=== PATIENT | female | born 1955 ===

== ENCOUNTER → 2020-01-28 08:52 | Outpatient (BNVA) | payer SELFPAY | PROVIDERS: Visit Provider Internal Medicine ==

== ENCOUNTER → 2021-01-23 09:53 | Outpatient (BNVA) | payer SELFPAY | PROVIDERS: Visit Provider Internal Medicine | DX: Z02.79 Encounter for issue of other medical certificate (principal) ==

== ENCOUNTER 2023-09-05 08:16 | Outpatient (AMB) | payer MEDICARE, OTHER, SELFPAY ==
--- NOTE | 2023-09-05 08:23 | A.OFFPC_ITS ---
Vital Signs 09/05/23 08:37 09/05/23 08:42 Height 5 ft 9.09 in Weight 175 lb 6 oz BMI 25.8 BP 144/70 H 142/64 H Blood Pressure Location Lt brachial Lt brachial Position Sitting Sitting Respiration 16 Pulse 67 Pulse Source Pulse Oximeter Temp 98.2 F Temp Source Oral Pulse Oximetry (%) 97 Oxygen Delivery Method Room Air Intake Visit Reasons: fab[facility] from [facility]/ breast pain Intake Note: New patient visit. Stomach discomfort Dermatology Nurse Practitioner Required: No Allergies atorvastatin Allergy (Unknown, Verified 09/05/23 08:26) Muscle cramps baclofen Allergy (Unknown, Verified 09/05/23 08:26) drowsiness polyethylene glycol 3350 Allergy (Unknown, Verified 09/05/23 08:26) Vomiting Fall risk assessment: No Falls in past year Last assessed Fall Risk: 09/05/23 Dental Screening Dental Screen Date: 09/05/23 Did you have a dental visit in the last 12 months?: No Did you have a dental problem in the last 6 months where you did not have access to dental care?: No Was dental information given to patient?: Patient declined HPI HPI Comments History of Present Illness Details This is a 68-year-old female with a past medical history of coronary artery disease, peripheral arterial disease, hyperlipidemia, hypertension and type 2 diabetes presenting to transfer care from [facility] primary care. She scheduled this visit to evaluate a pain on her right side. The pain began 2-3 days ago. She says it is a 4/5 out of 10, and it is fairly constant. She denies aggravating or alleviating factors. She says it is just below the right breast on the ribs. She says it feels sore and sensitive. She does not recall injuring the area. There is no visible rash or redness. She has not been sick recently, and she denies cough, chest pain, shortness of breath. Denies abdominal pain, nausea, vomiting. She has not attempted treatment for the pain. Cardiovascular-she saw her supply technician last week. They commented on her blood pressure being mildly elevated in the office. They instructed her to monitor it once a week at home. Her home readings are in the 120s over 70s. Compliant with medications. Denies chest pain or shortness of breath. Followed at [facility] vascular. She has intermittent claudication in the right lower extremity. She is on Xarelto. Endocrine- Dr. Christie for hyperparathyroidism and diabetes. She checks her glucose readings at home. She has an eye exam yearly with Dr. Angel. Denies hypoglycemia. She was seen by gabrielle last week and started on insulin. Her glucose yesterday was 142, 241 posprandial, and this morning it was 210. Right now it is 233. She has chronic knee and back pain treated with physical therapy. She has taken Zanaflex muscle relaxant as needed in the past. She is seen Podiatry for a right heel spur for which she received cortisone injections. She uses lorazepam 0.5 mg daily as needed for anxiety. Her last refill was 06/20/2023. She needs a refill. She had an abnormal mammogram on September 07 last year. There were suspected benign calcifications. Patient reports having the mammogram repeated in February with no suspicious findings, and she was instructed to repeat it in a year. [facility] Medical History (Updated 09/05/23 @ 09:40 by JAZ Krishna) Hypercalcemia Hyperparathyroidism Type 2 diabetes mellitus with vascular disease Subclinical hyperthyroidism Sciatica Pneumothorax, left Essential hypertension Hyperlipidemia Hyperkalemia Lumbar degenerative disc disease Female cystocele Colon adenomas B12 deficiency Coronary artery stenosis CAD (coronary artery disease) Atherosclerotic PVD with intermittent claudication Anxiety Surgical History (Updated 09/05/23 @ 09:19 by JAZ Krishna) History of right-sided carotid endarterectomy History of back surgery S/P CABG x 3 Family History (Updated 09/05/23 @ 08:41 by Eliza Shultz CMA) Mother Hyperlipidemia HTN (hypertension) Sister Stroke Brother Chondrosarcoma Prostate cancer Social History (Updated 09/05/23 @ 08:41 by Eliza Shultz CMA) Housing: House Patient Tobacco Use Status: Former Tobacco user Cigarette Packs Per Day: 1 Years Smoked: 15 e-Cigarette/Vaping Use: Never Used Second Hand Smoke Exposure: No service: No Current occupational status: retired Cognitive needs: No Hearing needs: No Vision needs: Yes (glasses) Questionnaire AUDIT C Alcohol Use Questionnaire (AUDIT-C) 1. How often do you have a drink containing alcohol?: Never 3. How often do you have six or more drinks on one occasion?: Never Total Score: 0 Review of Systems Const Details: Constitutional: No fever, chills or fatigue Respiratory: No shortness of breath, cough or sputum production. Cardiovascular: No chest pain, chest pressure or chest discomfort. Gastrointestinal: No anorexia, nausea, vomiting or diarrhea. No abdominal pain Neurologic: No headache, dizziness, syncope Skin: No rash or itching. Physical exam (Primary Care) Vital Signs: Last Vital Signs Temp 98.2 F 09/05/23 08:37 Pulse 67 09/05/23 08:37 Resp 16 09/05/23 08:37 BP 142/64 H 09/05/23 08:42 Pulse Ox 97 09/05/23 08:37 Oxygen Delivery Method Room Air 09/05/23 08:37 BMI result Body Mass Index 25.8 Tobacco/Smoking Status: Tobacco use Status Patient Tobacco Use Status Former Tobacco user 09/05/23 08:41 e-Cigarette/Vaping Use Never Used 09/05/23 08:41 Const Other: Constitutional: Alert, in no distress. Head: Normocephalic. Respiratory: Clear to auscultation. Cardiovascular: S1 S2 regular. No murmurs. Chest: Minimal tenderness of the anterior right lower ribs below the breast. Gastrointestinal: Abdomen soft, non-tender, non-distended. Normal bowel sounds. No palpable masses. Genitourinary: No costovertebral angle tenderness. Neurologic: No focal neurological deficits. Skin: No rashes or lesions. Assessment and Plan Assessment & Plan (1) Rib pain on right side: Code(s): R07.81 - Pleurodynia Plan: Patient appears well. Vitals stable. Exam is reassuring. Pain may be due to musculoskeletal strain however we discussed that shingles can commonly affected area so if she develops rash or redness she will contact the office. Recommended Tylenol and alternating with heat and ice. We will obtain x-ray of the ribs to make sure there is no bony lesion. She was instructed to follow up if pain does not resolve in 2 weeks or sooner if she has worsening symptoms. (2) Essential hypertension: Comment: Continue current medications. Home readings within normal. Instructed to bring log to appointments. Recommended low-sodium diet and avoidance of caffeine. Code(s): I10 - Essential (primary) hypertension (3) Anxiety: Comment: Stable. Continue lorazepam as needed. Instructed not to drive or operate heavy machinery with this medication. Mass pat reviewed. Code(s): F41.9 - Anxiety disorder, unspecified Orders: Orders XR ribs RT 2V Today R07.81 - Pleurodynia Medications: New lorazepam 0.5 mg PO DAILY PRN 30 tabs 0RF anxiety Coding Level of Care Code New Pt Level 4 (19265) Complex EM visit Add On G2211 Diagnoses Rib pain on right side R07.81 Essential hypertension I10 Anxiety F41.9
[2023-09-05 08:37] VITALS: BP 144/70; PULSE 67; RESP 16; TEMP 36.8; O2SAT 97; BMI 25.8
[2023-09-05 08:42] VITALS: BP 142/64
== END 2023-09-05 09:18 | disposition home or self-care (01) ==
PROVIDERS: PCP Physician Assistant Medical; Visit Provider Physician Assistant Medical
DX: R07.81 Pleurodynia (principal); I10 Essential (primary) hypertension; F41.9 Anxiety disorder, unspecified
CPT/HCPCS: 99204; 99214; G2211

== ENCOUNTER 2023-09-05 09:54 | Outpatient (REF) | payer MEDICARE, OTHER, SELFPAY ==
--- NOTE | ~2023-09-05 | XR_ITS ---
EXAMINATION: XR RIBS, RIGHT CLINICAL INFORMATION: Pleurodynia COMPARISON: None available. TECHNIQUE: Single view chest and 3 views of the right ribs were obtained. FINDINGS: Patient status post median sternotomy and CABG. Lungs are clear. No consolidation, pneumothorax, or pleural effusion. The cardiomediastinal silhouette and pulmonary vasculature are normal. Osseous structures are unremarkable. Ribs are intact. No fractures are identified. XR/XR ribs RT min 3V w CXR1V IMPRESSION: No acute intrathoracic disease. No rib fractures.
== END 2023-09-05 09:55 | disposition home or self-care (01) ==
LOC: HO.HMGCX 09:54
PROVIDERS: PCP Physician Assistant Medical; Visit Provider Physician Assistant Medical
DX: R07.81 Pleurodynia (principal)
CPT/HCPCS: 71101

== ENCOUNTER 2023-10-03 09:43 | Outpatient (AMB) | payer MEDICARE, OTHER, SELFPAY ==
--- NOTE | 2023-10-03 09:45 | MHC.PC.OV ---
Vital Signs 10/03/23 09:56 Height 5 ft 9.09 in Weight 176 lb 6 oz BMI 26.0 BP 122/60 Blood Pressure Location Lt brachial Position Sitting Pulse 71 Pulse Source Pulse Oximeter Pulse Oximetry (%) 96 Oxygen Delivery Method Room Air Intake Visit Reasons: [facility] wing 09/28 Ride side pain Intake Note: Emergency room follow up . ER called pt and stated she has a UTI but hasn't not treated her yet for it. 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 The patient went to the emergency department on 09/30/2023 at [facility] for evaluation of 710 right upper quadrant pain. She endorsed a three-week history of right-sided abdominal pain. Pain is on a daily basis but intermittent. They last up to an hour and come and go in waves. She had had a rib x-ray completed which was normal after she saw me at her last appt. She had a CT of the abdomen and pelvis with IV contrast at the ER which showed mild wall thickening within the stomach and several left mid abdominal jejunal and ileal small bowel loops. Gastroenteritis could not be ruled out per radiology report, but she has no fevers, chills, diarrhea, nausea or vomiting. Lipase, LFTs within normal limits. No leukocytosis or anemia. She was contacted by the ER yesterday because her urine culture grew group B strep, [id number] colony-forming units. She endorses urinary frequency for the last 4 days. No dysuria, hematuria, fevers, chills or back pain. Today her pain is better. It is a 4/10. It continues to follow the same waxing and waning pattern. She has a history of colon adenomas. Her last colonoscopy was prior to the pandemic. Patient reports she is supposed to have colonoscopies every 5 years. No blood in stools. Patient is on pantoprazole 40 mg daily chronically. She denies reflux. ROS: Constitutional: No unexplained weight loss, fever, chills, fatigue or night sweats. Respiratory: No shortness of breath, cough or sputum production. Cardiovascular: No chest pain, chest pressure or chest discomfort. No palpitations or pedal edema. Gastrointestinal: No nausea, vomiting, reflux or diarrhea. No blood in stool. See HPI. Genitourinary: See HPI. Skin: No rash Physical exam: Respiratory: Clear to auscultation. Cardiovascular: S1 S2 regular. No murmurs. Gastrointestinal: Abdomen soft, non-tender, non-distended. Normal bowel sounds. No palpable masses. Genitourinary: No costovertebral angle tenderness. Extremities: Warm and well perfused. No clubbing, cyanosis or edema. Psychiatric: Normal mood and affect [facility] Medical History (Updated 09/05/23 @ 09:40 by JAZ Krishna) Hypercalcemia Hyperparathyroidism Type 2 diabetes mellitus with vascular disease Subclinical hyperthyroidism Sciatica Pneumothorax, left Essential hypertension Hyperlipidemia Hyperkalemia Lumbar degenerative disc disease Female cystocele Colon adenomas B12 deficiency Coronary artery stenosis CAD (coronary artery disease) Atherosclerotic PVD with intermittent claudication Anxiety Surgical History (Updated 09/05/23 @ 09:19 by JAZ Krishna) History of right-sided carotid endarterectomy History of back surgery S/P CABG x 3 Family History (Updated 09/05/23 @ 08:41 by Eliza Shultz CMA) Mother Hyperlipidemia HTN (hypertension) Sister Stroke Brother Chondrosarcoma Prostate cancer Social History (Updated 09/05/23 @ 08:41 by Eliza Shultz CMA) Housing: House Patient Tobacco Use Status: Former Tobacco user Cigarette Packs Per Day: 1 Years Smoked: 15 e-Cigarette/Vaping Use: Never Used Second Hand Smoke Exposure: No service: No Current occupational status: retired Cognitive needs: No Hearing needs: No Vision needs: Yes (glasses) Physical exam (Primary Care) Vital Signs: Last Vital Signs Pulse 71 10/03/23 09:56 BP 122/60 10/03/23 09:56 Pulse Ox 96 10/03/23 09:56 Oxygen Delivery Method Room Air 10/03/23 09:56 BMI result Body Mass Index 26.0 Tobacco/Smoking Status: Tobacco use Status Patient Tobacco Use Status Former Tobacco user 10/03/23 09:51 e-Cigarette/Vaping Use Never Used 10/03/23 09:51 Assessment and Plan Assessment & Plan (1) Right upper quadrant abdominal pain: Code(s): R10.11 - Right upper quadrant pain (2) Abnormal computerized axial tomography of abdomen: Code(s): R93.5 - Abnormal findings on diagnostic imaging of other abdominal regions, including retroperitoneum (3) Acute UTI: Code(s): N39.0 - Urinary tract infection, site not specified Plan Continue pantoprazole 40 mg daily. Ordered H pylori antigen testing though false negative is possible with PPI use. If negative we may try to taper her off pantoprazole temporarily and repeat the test. Referred to Gastroenterology for further evaluation of right upper quadrant pain and small bowel and stomach thickening seen on CT scan. Warning signs warranting re-evaluation at ER reviewed. Patient started on probiotic. Treat group B strep UTI with amoxicillin. Take with food. If frequency does not resolve with antibiotics contact the office or sooner for worsening symptoms. She has a follow up scheduled with me in November. Orders: Orders H pylori Ag Stool Today R10.11 - Right upper quadrant pain Referrals Gastroenterology Referral D12.6 - Benign neoplasm of colon, unspecified, R10.11 - Right upper quadrant pain, R93.5 - Abnormal findings on diagnostic imaging of other abdominal regions, including retroperitoneum Medications: New Lactobac. rhamnosus GG-inulin 10 billion cell -200 mg ([facility]) 1 cap PO DAILY 60 caps 0RF amoxicillin 500 mg PO Q8H 15 caps 0RF 5 days Coding Level of Care Code Est Pt Level 4 (25359) Complex EM visit Add On G2211 Diagnoses Right upper quadrant abdominal pain R10.11 Abnormal computerized axial tomography of abdomen R93.5 Acute UTI N39.0
[2023-10-03 09:56] VITALS: BP 122/60; PULSE 71; O2SAT 96; BMI 26.0
== END 2023-10-03 10:36 | disposition home or self-care (01) ==
PROVIDERS: PCP Physician Assistant Medical; Visit Provider Physician Assistant Medical
DX: R10.11 Right upper quadrant pain (principal); R93.5 Abnormal findings on diagnostic imaging of other abdominal regions, including retroperitoneum; N39.0 Urinary tract infection, site not specified
CPT/HCPCS: 99214; G2211

== ENCOUNTER 2023-10-04 13:52 | Outpatient (REF) | payer MEDICARE, OTHER, SELFPAY | END 2023-10-04 13:53 | disposition home or self-care (01) | LOC: HO.LNP 13:52 | PROVIDERS: Visit Provider Physician Assistant Medical | DX: R10.11 Right upper quadrant pain (principal) | CPT/HCPCS: 87338 ==

== ENCOUNTER 2023-12-05 10:02 | Outpatient (AMB) | payer MEDICARE, OTHER, SELFPAY ==
--- NOTE | 2023-12-05 10:12 | MHC.PC.OV ---
Vital Signs 12/05/23 10:18 12/05/23 10:25 Height 5 ft 0.09 in Weight 178 lb 8 oz BMI 34.8 BP 148/78 H 124/74 Blood Pressure Location Lt brachial Lt brachial Position Sitting Sitting Respiration 16 Pulse 62 Pulse Source Pulse Oximeter Pulse Oximetry (%) 96 Oxygen Delivery Method Room Air Intake Visit Reasons: follow up/ bowel issues Intake Note: Follow up. Constant itch in the back. Feet are swollen. Requesting nephrology referral to Dr Adamson. He moved to [place]. 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 Abdominal pain-The patient went to the emergency department on 09/30/2023 at [facility] for evaluation of 09/24 right upper quadrant pain. She endorsed a three-week history of right-sided abdominal pain. Pain is on a daily basis but intermittent. She had had a rib x-ray completed which was normal after she saw me. She had a CT of the abdomen and pelvis with IV contrast at the ER which showed mild wall thickening within the stomach and several left mid abdominal jejunal and ileal small bowel loops. Gastroenteritis could not be ruled out per radiology report, but she has no fevers, chills, diarrhea, nausea or vomiting. Lipase, LFTs within normal limits. No leukocytosis or anemia. Her pain resolved about a month ago. She has an appointment with Gastroenterology scheduled in January. She will keep it to review the CT findings. She has a history of colon adenomas. Her last colonoscopy was prior to the pandemic. Patient reports she is supposed to have colonoscopies every 5 years. No blood in stools. Patient is on pantoprazole 40 mg daily chronically. She denies reflux. She was previously on Trulicity which was discontinued by her building rental manager. Patient said she had lab work done at [facility] ([facility]) within the past month. Results requested. Patient endorses intermittent itchiness on her back. No rash or redness. Cardiovascular-followed by cardiology. Compliant with medications. Denies chest pain or shortness of breath. Followed at [facility] vascular. She has intermittent claudication in the right lower extremity. She is on Xarelto. Endocrine- Dr. Christie for hyperparathyroidism and diabetes. She checks her glucose readings at home. She has an eye exam yearly with Dr. Angel. Endorses occasional hypoglycemia. She has an appointment next week. She has chronic knee and back pain treated with physical therapy. She has taken Zanaflex muscle relaxant as needed in the past. She is seen Podiatry for a right heel spur for which she received cortisone injections. She uses lorazepam 0.5 mg daily as needed for anxiety. She had an abnormal mammogram on September 07, 2022. There were suspected benign calcifications. Patient reports having the mammogram repeated in February with no suspicious findings, and she was instructed to repeat it in a year. ROS: Constitutional: No unexplained weight loss, fever, chills or night sweats. Eyes: No vision change Respiratory: No shortness of breath, cough or sputum production. Cardiovascular: No chest pain, chest pressure or chest discomfort. No palpitations or pedal edema. Gastrointestinal: No anorexia, nausea, vomiting or diarrhea. No abdominal pain or blood in stool. Neurologic: No headache, dizziness, syncope Skin: No rash Physical exam: Constitutional: Alert, in no distress. Neck: Supple, Full range of motion. No lymphadenopathy. Respiratory: Clear to auscultation. Cardiovascular: S1 S2 regular. No murmurs. Gastrointestinal: Abdomen soft, non-tender, non-distended. Normal bowel sounds. No palpable masses. Skin: No rashes or lesions visible on back. No excoriations. Extremities: Warm and well perfused. No clubbing, cyanosis or edema. Psychiatric: Normal mood and affect [facility] Medical History (Updated 12/05/23 @ 14:12 by JAZ Krishna) Abdominal pain Pruritus CKD (chronic kidney disease) Hypercalcemia Hyperparathyroidism Type 2 diabetes mellitus with vascular disease Subclinical hyperthyroidism Sciatica Pneumothorax, left Essential hypertension Hyperlipidemia Hyperkalemia Lumbar degenerative disc disease Female cystocele Colon adenomas B12 deficiency Coronary artery stenosis CAD (coronary artery disease) Atherosclerotic PVD with intermittent claudication Anxiety Surgical History (Updated 09/05/23 @ 09:19 by JAZ Krishna) History of right-sided carotid endarterectomy History of back surgery S/P CABG x 3 Family History (Updated 09/05/23 @ 08:41 by Eliza Shultz CMA) Mother Hyperlipidemia HTN (hypertension) Sister Stroke Brother Chondrosarcoma Prostate cancer Social History (Updated 09/05/23 @ 08:41 by Eliza Shultz CMA) Housing: House Patient Tobacco Use Status: Former Tobacco user Cigarette Packs Per Day: 1 Years Smoked: 15 e-Cigarette/Vaping Use: Never Used Second Hand Smoke Exposure: No service: No Current occupational status: retired Cognitive needs: No Hearing needs: No Vision needs: Yes (glasses) Physical exam (Primary Care) Vital Signs: Last Vital Signs Pulse 62 12/05/23 10:18 Resp 16 12/05/23 10:18 BP 124/74 12/05/23 10:25 Pulse Ox 96 12/05/23 10:18 Oxygen Delivery Method Room Air 12/05/23 10:18 BMI result Body Mass Index 34.8 Tobacco/Smoking Status: Tobacco use Status Patient Tobacco Use Status Former Tobacco user 12/05/23 10:12 e-Cigarette/Vaping Use Never Used 12/05/23 10:12 Assessment and Plan Assessment & Plan (1) Pruritus: Code(s): L29.9 - Pruritus, unspecified Plan: Prescribed Sarna. Follow up if symptoms worsen or if rash appears. (2) Type 2 diabetes mellitus with vascular disease: Code(s): E11.59 - Type 2 diabetes mellitus with other circulatory complications Plan: Continue management per endocrinology. She has an appointment next week. (3) Essential hypertension: Comment: Normotensive. Continue current regimen. Recommended low-sodium diet and avoidance of caffeine. Code(s): I10 - Essential (primary) hypertension (4) Hyperlipidemia: Code(s): E78.5 - Hyperlipidemia, unspecified Qualifiers: Hyperlipidemia type: pure hypercholesterolemia Qualified Code(s): E78.00 - Pure hypercholesterolemia, unspecified (5) CAD (coronary artery disease): Code(s): I25.10 - Atherosclerotic heart disease of [place] coronary artery without angina pectoris Qualifiers: Coronary Disease-Associated Artery/Lesion type: [place] artery [place] vs. transplanted heart: [place] heart Associated angina: without angina Qualified Code(s): I25.10 - Atherosclerotic heart disease of [place] coronary artery without angina pectoris Plan: Continue management per Cardiology. LDL goal less than 70. (6) Atherosclerotic PVD with intermittent claudication: Code(s): I70.219 - Atherosclerosis of [place] arteries of extremities with intermittent claudication, unspecified extremity Plan: Followed by vascular surgery. (7) Anxiety: Code(s): F41.9 - Anxiety disorder, unspecified Plan: Stable. Continue lorazepam as needed. Instructed not to drive or operate heavy machinery with this medication. Mass pat reviewed. (8) Abdominal pain: Code(s): R10.9 - Unspecified abdominal pain Plan: Resolved. She will keep her appointment with Gastroenterology to review CT findings and discuss date for next colonoscopy. Plan Follow up in 4 months. Orders: Referrals Nephrology Referral N18.9 - Chronic kidney disease, unspecified Medications: New camphor-menthol 0.5-0.5 % (Sarna Original) 1 appl topical BID-TID PRN 222 mL 3RF itching Coding Level of Care Code Est Pt Level 4 (19983) Diagnoses Pruritus L29.9 Type 2 diabetes mellitus with vascular disease E11.59 Essential hypertension I10 Pure hypercholesterolemia E78.00 Hyperlipidemia type: pure hypercholesterolemia Coronary artery disease involving [place] coronary artery of [place] heart without angina pectoris I25.10 Coronary Disease-Associated Artery/Lesion type: [place] artery [place] vs. transplanted heart: [place] heart Associated angina: without angina Atherosclerotic PVD with intermittent claudication I70.219 Anxiety F41.9 Abdominal pain R10.9
[2023-12-05 10:18] VITALS: BP 148/78; PULSE 62; RESP 16; O2SAT 96; BMI 34.8
[2023-12-05 10:25] VITALS: BP 124/74
== END 2023-12-05 10:56 | disposition home or self-care (01) ==
PROVIDERS: PCP Physician Assistant Medical; Visit Provider Physician Assistant Medical
DX: E11.59 Type 2 diabetes mellitus with other circulatory complications (principal); I70.219 Atherosclerosis of native arteries of extremities with intermittent claudication, unspecified extremity; L29.9 Pruritus, unspecified; I10 Essential (primary) hypertension; E78.00 Pure hypercholesterolemia, unspecified; I25.10 Atherosclerotic heart disease of native coronary artery without angina pectoris; F41.9 Anxiety disorder, unspecified; R10.9 Unspecified abdominal pain

== ENCOUNTER → 2023-12-05 10:02 | Outpatient (BNVA) | payer MEDICARE, OTHER, SELFPAY | PROVIDERS: PCP Physician Assistant Medical; Visit Provider Physician Assistant Medical | DX: L29.9 Pruritus, unspecified (principal); E11.59 Type 2 diabetes mellitus with other circulatory complications; I70.219 Atherosclerosis of native arteries of extremities with intermittent claudication, unspecified extremity; I10 Essential (primary) hypertension; E78.5 Hyperlipidemia, unspecified; I25.10 Atherosclerotic heart disease of native coronary artery without angina pectoris; R10.9 Unspecified abdominal pain; F41.9 Anxiety disorder, unspecified | CPT/HCPCS: 99212 ==

== ENCOUNTER 2023-12-23 13:23 | Outpatient (AMB) | payer MEDICARE, OTHER, SELFPAY ==
[2023-12-23 13:24] VITALS: BP 134/68; PULSE 64; O2SAT 96; BMI 26.6
--- NOTE | 2023-12-23 13:24 | A.OFFVIS_ITS ---
Vital Signs 12/23/23 13:24 Height 5 ft 9 in Weight 180 lb 5.41 oz BMI 26.6 BP 134/68 Blood Pressure Location Rt brachial Position Sitting Pulse 64 Pulse Source Pulse Oximeter Pulse Oximetry (%) 96 Oxygen Delivery Method Room Air Intake Visit Reasons: RUQ Pains Intake Note: Marcel presents in office today for an initial assessment. CC: Referred for RUQ pain. Pt reports that they are here for a colo and EGD consult as well as an assessment of their B/L UQ pain. Pt states that it started approximately 4-5 months ago and has since moved from the RUQ to the LUQ. Pt reports that they are dealing with intermittent constipation, with a BM approximately every 3-4 days. Pt has been taking miralax OTC with some noticeable relief. Pt reports that this would be a recall colo, x4-5 years ago. Pt reports hx of polypectomy per [facility]. 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 Reports almost 4-5 months ago started Trulicity shortly after developed RUQ pain which was intermittent without any particular triggers. Would get better with tylenol. Stopped the trulicity but pain persisted. Now the pain is more on the L side. Pt has constipation at baseline, which did not get worse. No N,V,D. No blood in stool. Has hx of hyperparathyroidism most recent lizzy normal. No fam hx of colorectal ca. Was seen in ER for the same in September. Labs and CT reviewed. Gastritis. Last colo in 2020 - x2 TA. Was given a 5y recall. [facility] Medical History Abdominal pain Pruritus CKD (chronic kidney disease) Hypercalcemia Hyperparathyroidism Type 2 diabetes mellitus with vascular disease Subclinical hyperthyroidism Sciatica Pneumothorax, left Essential hypertension Hyperlipidemia Hyperkalemia Lumbar degenerative disc disease Female cystocele Colon adenomas B12 deficiency Coronary artery stenosis CAD (coronary artery disease) Atherosclerotic PVD with intermittent claudication Anxiety Surgical History History of right-sided carotid endarterectomy History of back surgery S/P CABG x 3 Family History Mother Hyperlipidemia HTN (hypertension) Sister Stroke Brother Chondrosarcoma Prostate cancer Social History Housing: House Patient Tobacco Use Status: Former Tobacco user Cigarette Packs Per Day: 1 Years Smoked: 15 e-Cigarette/Vaping Use: Never Used Second Hand Smoke Exposure: No service: No Current occupational status: retired Cognitive needs: No Hearing needs: No Vision needs: Yes (glasses) Review of Systems Const All systems reviewed & are unremarkable except as noted in HPI and below Physical Exam Vital Signs: Last Vital Signs Pulse 64 12/23/23 13:24 BP 134/68 12/23/23 13:24 Pulse Ox 96 12/23/23 13:24 Oxygen Delivery Method Room Air 12/23/23 13:24 BMI result Body Mass Index 26.6 No apparent distress Nonicteric Abdomen soft, nondistended Alert and oriented x3, normal gait Assessment & Plan Assessment & Plan (1) Abdominal pain: Code(s): R10.9 - Unspecified abdominal pain Category: Medical (2) Constipation: Code(s): K59.00 - Constipation, unspecified Category: Medical Plan Ddx include PUD, diverticular disease, constipation, symptomatic gallstones, IBD. Plan: - CBC, CMP - US Abd - Increase pantoprazole to BID - EGD/colo to be booked - PEG prep Rxed due to CKD. Instructions reviewed - also given additional instruction to start miralax BID x 3 DAYS PRIOR to procedure due to underlying constipation. - Pt aware to HOLD Xarelto x3 days prior to the procedure. Follow up after procedures. Orders: Orders US abdomen complete Today R10.9 - Unspecified abdominal pain Complete Blood Count no Diff Today R10.9 - Unspecified abdominal pain Comprehensive Met. Panel Today R10.9 - Unspecified abdominal pain Medications: New peg 3350-electrolytes 236-22.74-6.74 -5.86 gram (Golytely) as per split prep instructions, until fecal effluent is clear 240 mL PO Q10M 4,000 mL 0RF colonoscopy Changed From pantoprazole 40 mg PO BID To pantoprazole 40 mg PO BID 90 days 180 tabs 0RF Coding Level of Care Code New Pt Level 4 (11381) Diagnoses Abdominal pain R10.9 Constipation K59.00
== END 2023-12-23 15:39 | disposition home or self-care (01) ==
PROVIDERS: PCP Physician Assistant Medical; Visit Provider Internal Medicine
DX: R10.9 Unspecified abdominal pain (principal); K59.00 Constipation, unspecified
CPT/HCPCS: 99204

== ENCOUNTER 2023-12-23 13:23 | Outpatient (REF) | payer MEDICARE, OTHER, SELFPAY ==
[2023-12-23 14:45] LABS: Hematocrit 42.1 % (37.0-47.0); Hemoglobin 13.6 g/dl (12.0-16.0); Mean Corpuscular HGB Conc 32.3 g/dl (31.0-35.0); Mean Corpuscular Hemoglobin 29.6 pg (27.0-33.0); Mean Corpuscular Volume 91.5 fL (80.0-98.0); Mean Platelet Volume 11.8 fL (9.4-12.3); Platelet Count 189 X10*3/uL (160-400); Red Cell Distribution Width 12.4 % (11.0-16.0); White Blood Count 6.3 X10*3/uL (4.8-10.8)
[2023-12-23 15:12] LABS: Alanine Aminotransferase 20 U/L (0-31); Albumin Level 3.9 g/dL (3.5-5.0); Alkaline Phosphatase 52 U/L (39-117); Anion Gap 11 (12-20); Aspartate Amino Transferase 18 U/L (5-31); Bilirubin Total 0.3 mg/dL (0.0-1.0); Blood Urea Nitrogen 29 mg/dL (9-16); Calcium 10.5 mg/dL (8.4-10.2); Carbon Dioxide 23 mmol/L (22-29); Chloride 110 mmol/L (96-108); Estimated Glomerular Filt Rate 41; Glucose Random 181 mg/dL (60-115); Potassium 4.7 mmol/L (3.3-5.1); Sodium 139 mmol/L (135-145)
== END 2023-12-23 13:24 | disposition home or self-care (01) ==
LOC: HO.LAB 13:23
PROVIDERS: PCP Physician Assistant Medical; Visit Provider Internal Medicine
DX: R10.9 Unspecified abdominal pain (principal); K59.00 Constipation, unspecified; R10.11 Right upper quadrant pain
CPT/HCPCS: 36415; 80053; 85027; 99202

== ENCOUNTER 2024-01-01 08:25 | Outpatient (REF) | payer MEDICARE, OTHER, SELFPAY ==
--- NOTE | ~2024-01-01 | US_ITS ---
EXAMINATION: US ABDOMEN COMPLETE CLINICAL INFORMATION: Unspecified abdominal pain. COMPARISON: None available. TECHNIQUE: Real-time imaging of the abdominal viscera. FINDINGS: PANCREAS: Normal. ABDOMINAL AORTA: The proximal, mid, and distal segments are normal in caliber. INFERIOR VENA CAVA: Visualized portions are normal. LIVER: Normal. The liver is normal in size. The liver contour is normal. Parenchymal echogenicity is normal. No focal hepatic lesion. There is no intrahepatic biliary duct dilatation seen. GALLBLADDER: Not visualized. COMMON BILE DUCT: Normal in caliber measuring 0.7 cm in diameter. RIGHT KIDNEY: Normal. No hydronephrosis. No renal calculi or focal parenchymal lesions. The kidney measures 12.0 cm in maximum dimension. LEFT KIDNEY: No hydronephrosis or renal calculi. The kidney measures 11.7 cm in maximum dimension. Midpole benign-appearing 8 mm cyst. Followup imaging is not routinely recommended for benign appearing cysts. SPLEEN: Normal. The spleen measures 10.9 cm in maximum dimension. FREE FLUID: None. US/US abdomen complete IMPRESSION: Unremarkable abdominal ultrasound. Electronically signed by: Kaye Barnes MD 01/14/2024 05:24 PM EDT
== END 2024-01-01 08:26 | disposition home or self-care (01) ==
LOC: HO.US 08:25
PROVIDERS: PCP Physician Assistant Medical; Visit Provider Internal Medicine
DX: R10.9 Unspecified abdominal pain (principal)
CPT/HCPCS: 76700

== ENCOUNTER 2024-02-06 09:42 | Outpatient (AMB) | payer MEDICARE, OTHER, SELFPAY ==
--- NOTE | 2024-02-06 10:13 | A.OFFPC_ITS ---
Vital Signs 02/06/24 10:19 02/06/24 10:55 Height 5 ft 9 in Weight 181 lb 4 oz BMI 26.8 BP 126/62 Blood Pressure Location Rt brachial Position Sitting Pulse 65 Pulse Source Pulse Oximeter Pulse Oximetry (%) 93 97 Oxygen Delivery Method Room Air Intake Visit Reasons: EDF Intake Note: Emergency room follow up Dining Room Hostess Required: No Allergies atorvastatin Allergy (Unknown, Verified 02/06/24 10:13) Muscle cramps baclofen Allergy (Unknown, Verified 02/06/24 10:13) drowsiness Dental Screening Dental Screen Date: 09/05/23 HPI HPI Comments History of Present Illness Details This is a 68-year-old female with a past medical history of CKD stage 3, hyperparathyroidism, hypercalcemia, type 2 diabetes, CAD, hypertension, hyperlipidemia, B12 deficiency and anxiety presenting for ER follow up. Patient was evaluated at the emergency department on 01/18/2024 for left-sided abdominal pain for 3 weeks. Patient described it as feeling burning and sensitivity. The patient says it is superficial. She had no associated symptoms with this. No rash. She had a normal p.o. intake. Her CBC was unremarkable. Her glucose was 236 in keeping with her diagnosis of type 2 diabetes. Creatinine 1.36 and GFR 42. She had a CT of the abdomen and pelvis with IV contrast which demonstrated severe atherosclerotic vascular calcifications in her blood vessels (patient followed by vascular and cardiology), mild degenerative changes in her spine and simple appearing renal cysts and hypodensities too small to characterize that dedicated follow up was not required to assess and no findings to explain her pain. She was discharged with a prescription for lidocaine patches. She does not feel like they helped. Patient says she still has a pain. Skin feels sensitive. Sometimes it does not bother her now though. She still has no rash. Does not recall trauma. No back pain. ROS: Constitutional: No fevers or chills. Respiratory: No shortness of breath or cough. Cardiovascular: No chest pain Gastrointestinal: No anorexia, nausea, vomiting or diarrhea. Genitourinary: No dysuria, hematuria, urinary frequency. Musculoskeletal: No back pain Skin: No rash or itching. Endocrine: No cold or heat intolerance. No polyuria or polydipsia. Physical exam: Constitutional: Alert, in no distress. Head: Normocephalic. Respiratory: Clear to auscultation. Cardiovascular: S1 S2 regular. No murmurs. Gastrointestinal: Abdomen soft, non-tender, non-distended. Normal bowel sounds. No palpable masses. Skin: No rashes Psychiatric: Normal mood and affect [facility] Medical History (Updated 02/06/24 @ 14:19 by JAZ Krishna) Neuralgia Abdominal pain Pruritus CKD (chronic kidney disease) Hypercalcemia Hyperparathyroidism Type 2 diabetes mellitus with vascular disease Subclinical hyperthyroidism Sciatica Pneumothorax, left Essential hypertension Hyperlipidemia Hyperkalemia Lumbar degenerative disc disease Female cystocele Colon adenomas B12 deficiency Coronary artery stenosis CAD (coronary artery disease) Atherosclerotic PVD with intermittent claudication Anxiety Surgical History History of right-sided carotid endarterectomy History of back surgery S/P CABG x 3 Family History Mother Hyperlipidemia HTN (hypertension) Sister Stroke Brother Chondrosarcoma Prostate cancer Social History Housing: House Patient Tobacco Use Status: Former Tobacco user Cigarette Packs Per Day: 1 Years Smoked: 15 e-Cigarette/Vaping Use: Never Used Second Hand Smoke Exposure: No service: No Current occupational status: retired Cognitive needs: No Hearing needs: No Vision needs: Yes (glasses) Questionnaire PHQ-9 Over the last 2 weeks, how often have you been bothered by any of the following problems? 1. Little interest or pleasure in doing things: not at all 2. Feeling down, depressed, or hopeless: not at all 3. Trouble falling or staying asleep, or sleeping too much: not at all 4. Feeling tired or having little energy: not at all 5. Poor appetite or overeating: not at all 6. Feeling bad about yourself - or that you are a failure or have let yourself or your family down: not at all 7. Trouble concentrating on things, such as reading the newspaper or watching television: several days 8. Moving or speaking so slowly that other people could have noticed. Or the opposite - being so fidgety or restless that you have been moving around a lot more than usual: not at all 9. Thoughts that you would be better off or of hurting yourself in some way: not at all Total score: 1 Source: Developed by Drs. Mohit Villagomez, Aiden Johnson and colleagues, with an educational jamey from [employer]. Thrive Questionnaire I am a: Patient What is your living situation today?: I have a steady place to live Within the past 12 months, did the food you bought not last and you didn't have the money to get more?: I choose not to answer this question Within the past 12 months, did you worry whether your food would run out before you got money to buy more?: I choose not to answer this question Do you have trouble paying for medicines?: No Do you have trouble getting transportation to medical appointments?: No Do you have trouble paying your heating and electricity bill?: I choose not to answer this question Do you have trouble taking care of your child, family member or friend?: No Do you have trouble with day-to-day activities such as bathing, preparing meals, shopping, managing finances, etc.?: No Are you currently unemployed and looking for a job?: No Are you interested in more education?: No Please select the resources that you would like help with: None Currently or been in a relationship where the following occur: No concerns reported THRIVE Score: 0 AUDIT C Alcohol Use Questionnaire (AUDIT-C) 1. How often do you have a drink containing alcohol?: Never Total Score: 0 CANDE-7 AMB Questionnaire CANDE-7 Feeling nervous, anxious, or on edge: 0 = Not at all Not being able to stop or control worryin = Several days Worrying too much about different things: 1 = Several days Trouble relaxin = Several days Being so restless that it is hard to sit still: 1 = Several days Becoming easily annoyed or irritable: 1 = Several days Feeling afraid as if something awful might happen: 0 = Not at all Total CANDE-7 score (0-4 normal; 5-9 mild; 10-14 moderate; 15-21 severe): 5 Source: Developed by Drs. Mohit Villagomez, Aiden Johnson and colleagues, with an educational jamey from [employer]. Physical exam (Primary Care) Vital Signs: Last Vital Signs Pulse 65 02/06/24 10:19 BP 126/62 02/06/24 10:19 Pulse Ox 97 02/06/24 10:55 Oxygen Delivery Method Room Air 02/06/24 10:19 BMI result Body Mass Index 26.8 Tobacco/Smoking Status: Tobacco use Status Patient Tobacco Use Status Former Tobacco user 02/06/24 10:22 e-Cigarette/Vaping Use Never Used 02/06/24 10:22 PHQ-9: PHQ-9 Score PHQ-9: Total score 1 02/06/24 10:57 Currently or been in a relationship where the following occur: No concerns reported Coding Level of Care Code Est Pt Level 4 (54875) Complex EM visit Add On G2211 Diagnoses Neuralgia M79.2 Assessment & Plan Assessment & Plan (1) Neuralgia: Code(s): M79.2 - Neuralgia and neuritis, unspecified Category: Medical Plan: She has no shingles rash. Abdominal exam unremarkable today. ER workup reassuring including labs and CT scan with IV contrast. Description consistent with neuropathic pain. We will try gabapentin 100 mg 3 times daily for the next 2 weeks. Patient advised to call if symptoms worsen or do not resolve. Side effects of the medication reviewed including sedation and dizziness. Do not drive if the medication causes the side effects. Medications: New gabapentin 100 mg PO TID 14 days 42 caps 0RF gabapentin 100 mg PO TID 14 days 42 caps 0RF
[2024-02-06 10:19] VITALS: BP 126/62; PULSE 65; O2SAT 93; BMI 26.8
[2024-02-06 10:55] VITALS: O2SAT 97
== END 2024-02-06 11:04 | disposition home or self-care (01) ==
PROVIDERS: PCP Physician Assistant Medical; Visit Provider Physician Assistant Medical
DX: M79.2 Neuralgia and neuritis, unspecified (principal)

== ENCOUNTER → 2024-02-06 09:42 | Outpatient (BNVA) | payer MEDICARE, OTHER, SELFPAY | PROVIDERS: PCP Physician Assistant Medical; Visit Provider Physician Assistant Medical | DX: M79.2 Neuralgia and neuritis, unspecified (principal); E11.22 Type 2 diabetes mellitus with diabetic chronic kidney disease; I12.9 Hypertensive chronic kidney disease with stage 1 through stage 4 chronic kidney disease, or unspecified chronic kidney disease; N18.30 Chronic kidney disease, stage 3 unspecified | CPT/HCPCS: 96127; 99212 ==

== ENCOUNTER 2024-02-14 23:05 | Emergency (ER) | payer MEDICARE, OTHER, SELFPAY ==
[2024-02-14 23:27] VITALS: BP 115/92; PULSE 81; RESP 18; TEMP 36.8; O2SAT 94; BMI 25.8
[2024-02-14 23:43] VITALS: BP 173/72; PULSE 74; RESP 22; TEMP 36.7; O2SAT 94
[2024-02-15 00:22] VITALS: BP 152/65; PULSE 68; RESP 17; O2SAT 92
--- OUTSIDE RECORDS SUMMARY | 2024-02-15 00:40 | XMS_ITS | Continuity of Care Document ---
Author Organization [facility] Address [address] [place] [address]- Care Team Providers Care Loan Clerk Name Role Phone Dana Arriaga Primary Care Physician [phone] Encounter [facility] Date(s): 03/20/23 - 04/19/23 [facility] [address], [place] [address] Attending Physician: Samantha Carrion Admitting Physician: AdmSamantha pacheco Referring Physician: AdmtrSamantha Allergies, Adverse Reactions, Alerts Substance Reaction Severity Status baclofen Drowsiness Active atorvastatin Muscle cramps Other Active polyethylene glycol 3350 Vomiting <not entered> Ac tive Immunizations Given and Recorded Vaccine Date Status Refusal Reason influenza virus vaccine, inactivated 12/24/22 Vazquez rded influenza virus vaccine, inactivated 12/19/21 Vazquez rded influenza virus vaccine, inactivated 12/20/20 Vazquez rded influenza virus vaccine, inactivated 1 12/23/19 Gi bettye influenza virus vaccine, inactivated 2 01/20/19 Gi bettye influenza virus vaccine, inactivated 3 01/20/19 Gi bettye influenza virus vaccine, inactivated 12/03/17 Vazquez rded influenza virus vaccine, inactivated 01/05/16 Vazquez rded [id number] bivalent booster vax 01/15/22 Recorded tetanus-diphtheria toxoids (Td) 4 01/01/22 Given tetanus-diphtheria toxoids (Td) 05/16/01 Recorded zoster vaccine, inactivated 12/25/21 Recorded zoster vaccine, inactivated 10/23/21 Recorded SARS-CoV-2 (COVID-19) mRNA-1273 vaccine 08/07/21 R ecorded SARS-CoV-2 (COVID-19) mRNA-1273 vaccine 01/12/21 R ecorded SARS-CoV-2 (COVID-19) mRNA-1273 vaccine 06/23/20 R ecorded SARS-CoV-2 (COVID-19) mRNA-1273 vaccine 05/27/20 R ecorded Influenza Virus Vaccine (oldterm) 12/14/16 Recorde d pneumococcal 13-valent vaccine 03/09/16 Recorded tetanus/diphtheria/pertussis, acel(Tdap) 10/24/11 Recorded pneumococcal 23-valent vaccine 09/15/00 Recorded 1Result Comment: [id number] Comment: SCREENING CHECKLIST REVIEWED. [facility] [id number] 3Result Comment: Screening checklist reviewed. [facility] [id number] 4Result Comment: [facility] [id number] Medications acetaminophen 325 mg oral tablet = 650 mg, By Mouth, Every 4 hours, Greater than 101 F or Mild Pain, 0 Refills, Maintenance, 08/09/14 14:49:05, Tablet Start Date: 08/09/14 Status: Ordered amLODIPine 2.5 mg oral tablet 2.5 mg, 1, tablet, By Mouth, Daily, # 90 tablet, Refills 1, Tot. Refills 1, Maintenance, 08/20/22 9:10:00 EDT, Route to Pharmacy Electronically, [facility], Partial fill upon patient request if the prescription is for a schedule II opioid Start Date: 08/20/22 Status: Ordered amLODIPine 5 mg oral tablet 5 mg, 1, tablet, By Mouth, Daily, # 90 tablet, Refills 1, Tot. Refills 1, Maintenance, 01/14/23 16:32:00 EDT, Route to Pharmacy Electronically, [facility], Partial fill upon patient request if the prescription is for a schedule II opioid Start Date: 01/14/23 Status: Ordered Aspirin Tablet 81 mg, By Mouth, Daily in AM, Maintenance, 08/09/14 14:49:37 Start Date: 08/09/14 Status: Ordered carvedilol 25 mg oral tablet 1 tablet = 25 mg, By Mouth, 2 times a day, # 60 tablet, 0 Refills, Maintenance, 09/24/14 8:32:05, Tablet Start Date: 09/24/14 Stop Date: 10/24/14 Status: Ordered Contour Next EZ Test Strips See Instructions, # 200 each, Refills 0, Tot. Refills 0, Maintenance, use to check fingerstick blood sugar twice a day Diagnosis E11.9, 01/10/22 15:21:00 EDT, Supply, 177, cm, 01/01/22 13:55:00 EDT, Height, 83, kg, 08/05/20 8:41:00 EDT, Dry Weight Start Date: 01/10/22 Status: Ordered ezetimibe 10 mg oral tablet 1 tablet, By Mouth, Daily, # 90 tablet, 1 Refills, Maintenance, 08/20/22 9:10:00 EDT, [facility], 180, cm, 08/12/22 21:42:00 EDT, Height, 81.1, kg, 08/12/22 21:42:00 EDT, Dry Weight Start Date: 08/20/22 Status: Ordered ezetimibe 10 mg oral tablet 1 tablet, By Mouth, Daily, # 90 tablet, 3 Refills, Maintenance, 01/24/23 13:32:00 EST, [facility], 180, cm, 01/24/23 13:10:00 EST, Height, 81.1, kg, 08/12/22 21:42:00 EDT, Dry Weight Start Date: 01/24/23 Stop Date: 01/19/24 Status: Ordered Farxiga 10 mg oral tablet 1 tablet = 10 mg, By Mouth, Daily, # 30 tablet, 0 Refills, Maintenance, 01/17/21 10:26:00 EDT, Tablet, Partial fill upon patient request if the prescription is for a schedule II opioid drug. Start Date: 01/17/21 Status: Ordered glipiZIDE 5 mg oral tablet, extended release 3 tablet = 15 mg, By Mouth, Daily, # 90 tablet, 3 Refills, Maintenance, 01/24/23 13:33:00 EST, ER Tablet, [facility] , Partial fill upon patient request if the prescription is for a scheduleII opioid drug., 180, cm, 01/24/23 13:10:00 EST, He... Start Date: 01/24/23 Status: Ordered Januvia 100 mg oral tablet 1 tablet = 100 mg, By Mouth, Daily, # 90 tablet, 1 Refills, Maintenance, 03/28/22 15:31:00 EST, Tablet, [facility], 177, cm, 01/17/22 8:58:00 EDT, Height, 81.65, kg, 01/17/22 8:58:00 EDT, Dry Weight Start Date: 03/28/22 Status: Ordered lisinopril 40 mg oral tablet 1 tablet = 40 mg, By Mouth, Daily, # 30 tablet, 0 Refills, Maintenance, 07/24/21 19:13:00 EDT, Tablet, Partial fill upon patient request if the prescription is for a schedule II opioid drug. Start Date: 07/24/21 Status: Ordered LORazepam 0.5 mg oral tablet 1 tablet = 0.5 mg, By Mouth, Daily, PRN as needed for anxiety, # 30 tablet, 0 Refills, Maintenance,12/27/22 12:32:00 EDT, Tablet, [facility], 180, cm, 10/26/22 13:43:00 EDT, Height, 81.1,kg, 08/12/22 21:42:00 EDT, Dry Weight Start Date: 12/27/22 Status: Ordered metFORMIN 1000 mg oral tablet 1 tablet, By Mouth, 2 times a day with meals, # 180 tablet, 1 Refills, Maintenance, 08/20/22 9:10:00 EDT, [facility], 180, cm, 08/12/22 21:42:00 EDT, Height, 81.1, kg, 08/12/22 21:42:00 EDT, Dry Weight Start Date: 08/20/22 Status: Ordered metFORMIN 1000 mg oral tablet 1 tablet, By Mouth, 2 times a day with meals, # 14 tablet, 0 Refills, Maintenance, 08/20/22 9:11:00EDT, [facility], 180, cm, 08/12/22 21:42:00 EDT, Height, 81.1, kg, 08/12/22 21:42:00 EDT, Dry Weight Start Date: 08/20/22 Status: Ordered pantoprazole 40 mg oral delayed release tablet 1 tablet = 40 mg, By Mouth, Daily, # 90 tablet, 3 Refills, Maintenance, 01/24/23 13:33:00 EST, EC Tablet, 180, cm, 01/24/23 13:10:00 EST, Height, 81.1, kg, 08/12/22 21:42:00 EDT, Dry Weight Start Date: 01/24/23 Status: Ordered please fit patient for diabetic shoes please fit patient for diabetic shoes, See Instructions, # 2 each, Refills 0, Tot. Refills 0, Maintenance, diabetic shoes, 05/11/21 13:57:00 EST, Supply Start Date: 05/11/21 Status: Ordered pravastatin 80 mg oral tablet 1 tablet, By Mouth, Daily at bedtime, # 90 tablet, 3 Refills, Maintenance, 01/24/23 13:33:00 EST, [facility] , 180, cm, 01/24/23 13:10:00 EST, Height, 81.1, kg, 08/12/22 21:42:00 EDT, Dry Weight Start Date: 01/24/23 Status: Ordered tiZANidine 2 mg oral tablet See Instructions, Take 1-2 tab PO every 8 to 12 hours as needed for muscle spasm/pain., # 40 tablet, Refills 3, Tot. Refills 3, Maintenance, 09/17/22 14:32:00 EDT, Instructions Replace Required Details, Route to Pharmacy Electronically, [facility]... Start Date: 09/17/22 Status: Ordered Vitamin B12 1000 mcg oral tablet 1 tablet = 1,000 mcg, By Mouth, Daily, 0 Refills, Maintenance, 07/19/21 11:14:00 EDT, Partial fill upon patient request if the prescription is for a schedule II opioid drug. Start Date: 07/19/21 Status: Ordered Xarelto 2.5 mg oral tablet 1 tablet = 2.5 mg, By Mouth, 2 times a day, 0 Refills, Maintenance, 02/12/21 15:10:00 EST, Tablet, Partial fill upon patient request if the prescription is for a schedule II opioid drug. Start Date: 02/12/21 Status: Ordered Problem List Condition Confirmation Course Effective Dates Status H ealth Status Informant Colon adenomas 1 Confirmed Active Anxiety Confirmed Active Atherosclerotic PVD with intermittent claudication Confirmed Active Burning sensation Confirmed Active Carotid artery stenosis Confirmed Active Cobalamin deficiency Confirmed Active CAD (coronary artery disease) Confirmed Active Cystocele Confirmed Active Displacement of lumbar intervertebral disc without myelopathy Confirmed Active Dizziness Confirmed Active Status post pneumothorax Confirmed Active H/O adenomatous polyp of colon Confirmed Active S/P CABG x 3 Confirmed Active Hypercalcemia Confirmed Active Hyperkalemia Confirmed Active Hyperlipidemia Confirmed Active Hypertensive disorder Confirmed Active Left pneumothorax Confirmed Active Loss of hair Confirmed Active Low back pain Confirmed Active PVD (peripheral vascular disease) Confirmed Active Sciatica Confirmed Active Subclinical hyperthyroidism Confirmed Active Type 2 diabetes mellitus Confirmed Active Social History Social History Type Response Smoking Status Former smoker, quit more than 30 days ago; Other: quit 2004; Started at age: 16; entered on: 10/26/22 Sex Patient Care team information Care Team Personnel Name: Nelli Esquivel RN Position: S RN Member Role: Primary Care Nurse Name: Bal Henderson MD Position: [facility] Cardiology MD Member Role: Lifetime Consulting Physician Address: Address: [address] [place] [address]- [place] Name: Dana Arriaga Position: [facility] Associate Professional Member Role: PCP Address: Address: [address] [place] [address]- [place] Name: Daquan Sykes MD Position: [facility] Renal MD Member Role: Lifetime Consulting Physician Address: Address: [address] [facility] [place] [address]- [place] Name: Lourdes Porter RN Position: S RN Member Role: Primary Care Nurse Name: Zay Hernandes Position: S RN Member Role: Primary Care Nurse Name: Laquita Franklin RN Position: S RN Member Role: Primary Care Nurse Care Team Related Persons Name: JESSICA SAAVEDRA Address: home [address] [place] [address]
--- OUTSIDE RECORDS SUMMARY | 2024-02-15 00:40 | XMS_ITS | Continuity of Care Document ---
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 Phone Dana Arriaga Primary Care Physician Encounter [facility] Date(s): 03/20/23 - 04/19/23 [facility] [address] [place], [place] [address] Attending Physician: Not on Staff, Attending MD Allergies, Adverse Reactions, Alerts Substance Reaction Severity [...] influenza virus vaccine, inactivated 01/05/16 Vazquez rded [id number] bivalent booster vax 01/15/22 Recorded tetanus-diphtheria toxoids [...] pneumococcal 23-valent vaccine 09/15/00 Recorded 1Result Comment: [id number] 2Result Comment: SCREENING CHECKLIST REVIEWED. [facility] [id number] 3Result Comment: Screening checklist reviewed. [facility] [id number] 4Result Comment: [facility] [id number] Medications acetaminophen 325 mg oral tablet = 650 mg, By Mouth, Every 4 hours, Greater than 101 F or Mild Pain, 0 Refills, Maintenance, 08/09/14 14:49:05, Tablet Start Date: 08/09/14 Status: Ordered amLODIPine 2.5 mg oral tablet 2.5 mg, 1, tablet, By Mouth, Daily, # 90 tablet, Refills 1, Tot. Refills 1, Maintenance, 08/20/22 9:10:00 EDT, Route to Pharmacy Electronically, [facility], Partial fill upon patient request if the prescription is for a schedule II opioid Start Date: 08/20/22 Status: Ordered amLODIPine 5 mg oral tablet 5 mg, 1, tablet, By Mouth, Daily, # 90 tablet, Refills 1, Tot. Refills 1, Maintenance, 01/14/23 16:32:00 EDT, Route to Pharmacy Electronically, [facility], Partial fill upon patient request if [...] Maintenance, 08/20/22 9:10:00 EDT, [facility] , 180, cm, 08/12/22 21:42:00 EDT, Height, 81.1, [...] tablet, 0 Refills, Maintenance,12/27/22 12:32:00 EDT, Tablet, [facility], 180, cm, 10/26/22 13:43:00 EDT, [...] 14 tablet, 0 Refills, Maintenance, 08/20/22 9:11:00EDT, [facility], 180, cm, 08/12/22 21:42:00 EDT, [...] Replace Required Details, Route to Pharmacy Electronically, [facility]... Start Date: 09/17/22 Status: Ordered Vitamin B12 [...] team information Care Team Personnel Name: Nelli Esquviel RN Position: S RN Member Role: Primary Care Nurse Name: Santiago NIÑO, Bla Sweeney Position: [facility] Cardiology MD Member Role: Lifetime Consulting Physician Address: Address: [address] [place] [address]- [place] Name: Dana Arriaga Position: [facility] Associate Professional Member Role: PCP Address: Address: [address] [place] [address]- [place] Name: Daquan Sykes MD Position: [facility] Renal MD Member Role: [employer] Consulting Physician Address: Address: [address] [facility] [place] [address]- [place] Name: Lourdes Porter RN Position: S RN Member Role: Primary Care Nurse Name: Zay Hernandes Position: S RN Member Role: Primary Care Nurse Name: Laquita Franklin RN Position: S RN Member Role: Primary Care Nurse Care Team Related Persons Name: JESSICA SAAVEDRA Address: home [address] [place] [address]
--- OUTSIDE RECORDS SUMMARY | 2024-02-15 00:40 | XMS_ITS | Continuity of Care Document ---
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 Role Phone Dana Arriaga Primary Care Physician Encounter [facility] Date(s): 06/14/23 - 06/14/[address] [address]- Discharge Disposition: A-D/C Home Attending Physician: Agustin Rivera MD Admitting Physician: Agustin Rivera MD Referring Physician: Not on Staff, Referring MD Allergies, Adverse Reactions, Alerts Substance Reaction [...] influenza virus vaccine, inactivated 01/05/16 Vazquez rded [id number] bivalent booster vax 01/15/22 Recorded tetanus-diphtheria toxoids [...] pneumococcal 23-valent vaccine 09/15/00 Recorded 1Result Comment: [id number] 2Result Comment: SCREENING CHECKLIST REVIEWED. [facility] [id number] 3Result Comment: Screening checklist reviewed. [facility] [id number] 4Result Comment: [facility] [id number] Medications acetaminophen 325 mg oral tablet = 650 mg, By Mouth, Every 4 hours, Greater than 101 F or Mild Pain, 0 Refills, Maintenance, 08/09/14 14:49:05, Tablet Start Date: 08/09/14 Status: Ordered amLODIPine 2.5 mg oral tablet 2.5 mg, 1, tablet, By Mouth, Daily, # 90 tablet, Refills 1, Tot. Refills 1, Maintenance, 08/20/22 9:10:00 EDT, Route to Pharmacy Electronically, [facility], Partial fill upon patient request if the prescription is for a schedule II opioid Start Date: 08/20/22 Status: Ordered amLODIPine 5 mg oral tablet 5 mg, 1, tablet, By Mouth, Daily, # 90 tablet, Refills 1, Tot. Refills 1, Maintenance, 01/14/23 16:32:00 EDT, Route to Pharmacy Electronically, [facility], Partial fill upon patient request if the [...] tablet, 0 Refills, Maintenance,12/27/22 12:32:00 EDT, Tablet, [facility], 180, cm, 10/26/22 13:43:00 EDT, [...] 14 tablet, 0 Refills, Maintenance, 08/20/22 9:11:00EDT, [facility], 180, cm, 08/12/22 21:42:00 EDT, [...] Replace Required Details, Route to Pharmacy Electronically, [facility]... Start Date: 09/17/22 Status: Ordered Vitamin B12 [...] Active Type 2 diabetes mellitus Confirmed Active Vital Signs Most recent to oldest [Reference Range]: 1 2 3 Height 181 cm (06/14/23 12:28 PM) Weight 80.5 kg (06/14/23 12:28 PM) Oxygen Saturation [94-100 %] 96 % (06/14/23 3:10 PM) 98 % (06/14/23 12:28 PM) 97 % (06/14/23 12: PM) Pulse Rate [55-90 bpm] 78 bpm (06/14/23 3:10 PM) 86 bpm (06/14/23 12:28 PM) 95 bpm *H* (06/14/23 12:27 PM) Blood Pressure [90-138/55-84 mm Hg] 118/72mm Hg (06/14/23 3:10 PM) 123/65mm Hg (06/14/23 12:28 PM) Respiratory Rate [16-30 br/min] 20 br/min (06/14/23 3:10 PM) 18 br/min (06/14/23 12:28 PM) Temperature [96.8-100.4 DegF] 97.4 DegF (06/14/23 12:28 PM) Mode of Delivery (Oxygen) Room air (06/14/23 3:10 PM) Room air (06/14/23 12:28 PM) Temperature Route Temporal (06/14/23 12:28 PM) Dry Weight 80.5 kg (06/14/23 12:28 PM) Social History Social History Type Response Smoking Status Former smoker, quit more than 30 days ago; Other: quit 2004; Started at age: 16; entered on: 10/26/22 Sex Note * Nicole NIÑO, Agustin Abreu: PERFORM Event Display: Patient Education Leaflets Authored Date: [id number] Diarrhea with Uncertain Cause (Adult) ?? [id number] Diarrhea with Uncertain Cause (Adult) Diarrhea is when stools are loose and watery. This can be caused by: ??? Viral infections ??? Bacterial infections ??? Food poisoning ??? Parasites ??? Irritable bowel syndrome (IBS) ??? Inflammatory bowel diseases such as ulcerative colitis, Crohn's disease, and celiac disease ??? Food intolerance, such as to lactose, the sugar found in milk and milk products ??? Reaction to medicines like antibiotics, laxatives, cancer medicines, and antacids Along with diarrhea, you may also have: ??? Abdominal pain and cramping ??? Nausea and vomiting ??? Loss of bowel control ??? Fever and chills ??? Bloody stools In some cases, antibiotics may help to treat diarrhea. You may have a stool sample test which is done to see what is causing your diarrhea, and if antibiotics will help treat it. The results of a stool sample test may take up to 2 days. The healthcare provider may not give you antibiotics until they have the stool test results. Diarrhea can cause dehydration. This is the loss of too much water and other fluids from the body. When this occurs, you must replace those body fluids. This can be done with oral rehydration solutions. Oral rehydration solutions are available at drugstores and grocery stores without a prescription. Sports drinks are not the best choice if you are very dehydrated. They usually have too much sugarand not enough electrolytes. Home care Follow all instructions given by your healthcare provider. Rest at home for the next 24 hours, or until you feel better. Avoid caffeine, tobacco, and alcohol. These can make diarrhea, cramping, and pain worse. If taking medicines: ??? Nhao-ors-gjaixau nausea and diarrhea medicines are generally OK unless you experience fever or blood in the stool. Check with your healthcare provider first in those circumstances. ??? You may use acetaminophen or nonsteroidal anti-inflammatory drugs (NSAIDs) such as ibuprofen or naproxen to reduce pain and fever. Don???t use these if you have chronic liver or kidney disease, or ever had a stomach ulcer or gastrointestinal??bleeding. Don't use NSAID medicines if you are already taking one for another condition (like arthritis) or are on daily aspirin therapy (such as for heart disease or after a stroke). Talk with your healthcare provider first. ??? If antibiotics were prescribed, be sure you take them until they are finished. Don???t stop taking them even when you feel better. Antibiotics must be taken exactly as prescribed. To prevent the spread of illness: ??? Remember that washing with soap and clean, running water and using alcohol- based gut puller is the best way to prevent the spread of infection. Dry your hands with a single-use towel (like a papertowel). ??? Clean the toilet after each use. ??? Wash your hands before eating. ??? Wash your handsbefore and after preparing food. Keep in mind that people with diarrhea or vomiting should not prepare food for others. ??? Wash your hands after using cutting boards, counter tops, and knives that have been in contact with raw foods. ??? Wash and then peel fruits and vegetables. ??? Keep uncooked meats away from cooked and fgyyd-tn-rib foods. ??? Use a food thermometer when cooking. Cook poultryto at least 165??F (74??C). Cook ground meat (beef, veal, pork, garcia) to at least 160??F (71??C). Cook fresh beef, veal, garcia, and pork to at least 145??F (63??C). ??? Don???t eat raw or undercooked eggs (poached or juanis side up), poultry, meat, or unpasteurized milk and juices. Food and drinks The main goal while treating vomiting or diarrhea is to prevent dehydration. This is done by takingsmall amounts of liquids often. ??? Keep in mind that liquids are more important than food right now. ??? Drink only small amounts of liquids at a time. ??? Don???t force yourself to eat, especially if you are??having cramping, vomiting, or diarrhea. Don???t eat large amounts at a time, even if you are hungry. ??? If you eat, avoid fatty, greasy, spicy, or fried foods. ??? Don???t eat dairy foods or drink milk if you have diarrhea.??These can make??diarrhea worse. During the first 24 hours you can try: ??? Oral rehydration solutions.?? Sports drinks may be used if you are not too dehydrated and are otherwise healthy. ??? Soft drinks without caffeine ??? Earnestine remi ??? Water (plain or flavored) ??? Decaf tea or coffee ??? Clear broth, consomm??, or bouillon ??? Gelatin, ice pops, or frozen fruit juice bars The second 24 hours, if you are feeling better, you can add: ??? Hot cereal, plain toast, bread, rolls, or crackers ??? Plain noodles, rice, mashed potatoes, chicken noodle soup, or rice soup ??? Applesauce, unsweetened canned fruit (no pineapple) ??? Bananas As you recover: ??? Limit fat intake to less than 15 grams per day. Don???t eat margarine, butter, oils, mayonnaise, sauces, gravies, fried foods, peanut butter, meat, poultry, or fish. ??? Limit fiber. Don???t eat raw or cooked vegetables, fresh fruits except bananas, or bran cereals. ??? Limit caffeine and chocolate. ??? Limit dairy. ??? Don???t use spices or seasonings except salt. ??? Go backto your normal diet over time, as you feel better and your symptoms improve. ??? If the symptoms come back, go back to a simple diet or clear liquids. ?? Follow-up care Follow up with your healthcare provider, or as advised. If a stool sample was taken or cultures were done, call the healthcare provider for the results as instructed. ?? Call 911 Call 911 if you have any of these symptoms: ??? Trouble breathing ??? Confusion ??? Extreme drowsiness or trouble walking ??? Loss of consciousness ??? Rapid heart rate ??? Chest pain ??? Stiff neck ??? Seizure ?? When to get medical advice Call your healthcare provider right away if any of these occur: ??? Abdominal pain that gets worse ??? Constant lower right abdominal pain ??? Continued vomiting and inability to keep liquids down ??? Diarrhea more than 5 times a day ??? Blood in vomit or stool ??? Dark urine or no urine for 8 hours, dry mouth and tongue, tiredness, weakness, or dizziness ??? Drowsiness ??? New rash ??? You don???t get better in 2 to 3 days ??? Fever of 100.4??F (38??C) or higher, or as advised by your provider ?? Last Reviewed Date: 2021 ?? [id number] [employer]. All rights reserved. This information is not intended as a substitute for professional medical care. Always follow your healthcare professional's instructions. ?? * Nicole NIÑO, Agustin Abreu: PERFORM Event Display: Patient Education Leaflets Authored Date: [id number] Nonspecific Vomiting and Diarrhea (Adult) ?? [id number] Nonspecific Vomiting and Diarrhea (Adult) Vomiting and diarrhea can have many causes, including: ??? Helping your body get rid of harmful substances? Gastroenteritis caused by viruses, parasites,??bacteria, or toxins ??? Allergy to??or side effect of??a food or medicine ??? Severe stress orworry (anxiety)? Other illnesses ??? It's often hard to pinpoint an exact cause, even with testing.??Vomiting and diarrhea often go awaywithin a day or two without problems. But if these symptoms continue, it may lead to too much loss of fluid (dehydration). This can be serious if not treated. Home care Medicines ??? You may use acetaminophen or nonsteroidal anti-inflammatory drugs (NSAID) such as ibuprofen or naproxen to control fever, unless another medicine was prescribed. If you have chronic liver or kidney disease, talk with your healthcare provider before using these medicines. Also talk with your provider if you've had a stomach ulcer or??gastrointestinal bleeding. Don't give aspirin to anyone under 18 years of age who is ill with a fever because it may cause a serious illness called Merritt syndrome that may result in severe disease or even . Don't use NSAID medicines if you are already taking one for another condition (like arthritis) or are on aspirin (such as for heart disease or after a stroke) ??? Uohm-dth-adkyznl medicines for diarrhea, nausea, and vomiting are generally OK unlessyou have bleeding, fever, or severe abdominal pain. General care ??? If symptoms are severe, rest at home for the next 24 hours, or until you are feeling better. ??? Washing your hands with soap and clean, running water, or using alcohol-based hand gut puller??is the best way to stop the spread of infection. Wash your hands after touching anyone who is sick. ??? Wash your hands after using the toilet and before meals. Clean the toilet after each use. ??? Dry your hands with a single-use disposable towel ??? Caffeine, tobacco, and alcohol can make the diarrhea, cramping, and pain worse. Remember, caffeine not only is??in coffee, but also is??in chocolate, some energy drinks, some soft drinks, and teas. Diet ??? Water and clear liquids are important so you don't get dehydrated. Drink a small amount at a time but frequently. Don't guzzle down the drinks.??That may increase your nausea, make cramping worse, and??cause the drinks??to come back up. ??? Sports drinks may also help if you are healthy and nottoo dehydrated. But, they have too much sugar and not enough electrolytes and can sometimes make things worse. Also, don't drink beverages that are too acidic, like orange juice and grape juice. ??? If you are very dehydrated, products called oral rehydration solutions are available at most grocerystores and pharmacies. Food ??? Don't force yourself to eat, especially if you have cramps, diarrhea, or vomiting.??Eat just a little at a time, and then wait a few minutes before you try to eat more. ??? Don't eat fatty, greasy, spicy, or fried foods. ??? Don't eat dairy products if you have diarrhea. They can make it worse. During the first??24 hours??(the first full day),??follow the diet below: ??? Beverages: Oral rehydration solutions, sports drinks, soft drinks without caffeine, mineral water, and decaffeinated tea and coffee ??? Soups: Clear broth, consomm??, and bouillon ??? Desserts: Plain gelatin, ice pops, and fruit juice bars During the next 24 hours??(the second day),??you may add the following to the above??if you are better. If not, continue what you did the first day: ??? Hot cereal, plain toast, bread, rolls, crackers ??? Plain noodles, rice, mashed potatoes, chicken noodle or rice soup ??? Unsweetened canned fruit (avoid pineapple), bananas ??? Limit fat intake to less than 15 grams per day by avoiding margarine, butter, oils, mayonnaise, sauces, gravies, fried foods, peanut butter, meat, poultry, and fish. ??? Limit fiber. Avoid raw or cooked vegetables, fresh fruits (except bananas) and bran cereals. ??? Limit caffeine and chocolate. No spices or seasonings except salt. During the next 24 hours: ??? Gradually resume a normal diet, as you feel better and your symptoms improve. ??? If at any time??your symptoms??start getting worse again, go back to clear liquids until you feel better. Food preparation ??? If you have diarrhea, do not prepare food for others. When preparing foods, wash your hands before and after. ??? Wash your hands or use alcohol-based gut puller after using cutting boards, counter tops, and knives that have been in contact with raw food. ??? Dry your hands witha single-use disposable towel. ??? Keep uncooked meats away from cooked and cismk-sv-wvo foods. ?? Follow-up care Follow up with your healthcare provider, or as advised. Call if you don't get better in the next 2 to 3 days. If a stool (diarrhea) sample was taken,??or cultures done, you will be told if they are positive, or if your treatment needs to be changed. You may call as directed for the results. If X-rays were taken, you will be notified of any new findings that may affect your care ?? Call 911 Call 911 if any of these occur: ??? Trouble breathing ??? Chest pain ??? Confusion ??? Severe drowsiness or trouble awakening ??? Fainting or loss of consciousness ??? Rapid heart rate ??? Seizure ??? Stiff neck ??? Severe weakness, dizziness, or lightheadedness ?? When to get medical advice Call your healthcare provider right away if any of these occur: ??? Bloody or black vomit or stools??? Severe, steady abdominal pain or any abdominal pain that is getting worse ??? Severe headache or stiff neck ??? An inability to hold down even sips of liquids for more than 12 hours ??? Vomiting that lasts more than 24 hours ??? Diarrhea that lasts more than 24 hours ??? Fever of 100.4??F (38.0??C) or higher, or as directed by your healthcare provider ??? Yellowish color to your skin or the whites of your eyes ??? Signs of dehydration,??such as dry mouth, little urine (less than every 6 hours), or very dark urine ?? Last Reviewed Date: 2021 ?? [id number] [employer]. All rights reserved. This information is not intended as a substitute for professional medical care. Always follow your healthcare professional's instructions. ?? Patient Care team information Care Team Personnel Name: Nelli Esquivel RN Position: [facility] RN Member Role: Primary Care Nurse Name: Bal Henderson MD Position: [facility] Cardiology MD Member Role: Lifetime Consulting Physician Address: Address: [address] [place] [address]- [place] Name: Dana Arriaga Position: [facility] Associate Professional Member Role: PCP Address: Address: [address] [place] [address]- [place] Name: Daquan Sykes MD Position: [facility] Renal MD Member Role: Lifetime Consulting Physician Address: Address: [address] [facility] [place] [address]- [place] Name: Lourdes Porter RN Position: S RN Member Role: Primary Care Nurse Name: Zay Hernandes Position: S RN Member Role: Primary Care Nurse Name: Laquita Franklin RN Position: S RN Member Role: Primary Care Nurse Care Team Related Persons Name: JESSICA SAAVEDRA Address: home [address] [place] [address]
--- OUTSIDE RECORDS SUMMARY | 2024-02-15 00:40 | XMS_ITS | Continuity of Care Document ---
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 Role Phone Dana Arriaga Primary Care Physician Encounter [facility] Date(s): 11/09/21 - 12/09/21 [facility] [address] [place] [address]- Allergies, Adverse Reactions, Alerts Substance Reaction Severity Status baclofen Drowsiness Active atorvastatin Muscle cramps Other Active polyethylene glycol 3350 Vomiting <not entered> Ac tive Immunizations Given and Recorded Vaccine Date Status Refusal Reason zoster vaccine, inactivated 10/23/21 Recorded SARS-CoV-2 (COVID-19) mRNA-1273 vaccine 08/07/21 R ecorded SARS-CoV-2 (COVID-19) mRNA-1273 vaccine 01/12/21 R ecorded SARS-CoV-2 (COVID-19) mRNA-1273 vaccine 06/23/20 R ecorded SARS-CoV-2 (COVID-19) mRNA-1273 vaccine 05/27/20 R ecorded influenza virus vaccine, inactivated 12/20/20 Vazquez rded influenza virus vaccine, inactivated 1 12/23/19 Gi bettye influenza virus vaccine, inactivated 2 01/20/19 Gi bettye influenza virus vaccine, inactivated 3 01/20/19 Gi bettye influenza virus vaccine, inactivated 12/03/17 Vazquez rded influenza virus vaccine, inactivated 01/05/16 Vazquez rded Influenza Virus Vaccine (oldterm) 12/14/16 Recorde d pneumococcal 13-valent vaccine 03/09/16 Recorded tetanus/diphtheria/pertussis, acel(Tdap) 10/24/11 Recorded tetanus-diphtheria toxoids (Td) 05/16/01 Recorded pneumococcal 23-valent vaccine 7/1/01 Recorded 1Result Comment: [id number] 2Result Comment: SCREENING CHECKLIST REVIEWED. [facility] 89671-045-20 3Result Comment: Screening checklist reviewed. [facility] 28514-046-82 Medications acetaminophen 325 mg oral tablet = 650 mg, By Mouth, Every 4 hours, Greater than 101 F or Mild Pain, 0 Refills, Maintenance, 08/09/14 14:49:05, Tablet Start Date: 08/09/14 Status: Ordered amLODIPine 2.5 mg oral tablet 1 tablet, By Mouth, Daily, # 90 tablet, 2 Refills, Maintenance, 02/13/21 10:31:00 EST, MEDS BY THA, 177, cm, 01/17/21 10:22:00 EDT, Height, 83, kg, 08/05/20 8:41:00 EDT, Dry Weight Start Date: 02/13/21 Status: Ordered Aspirin Tablet 81 mg, By Mouth, Daily in AM, Maintenance, 08/09/14 14:49:37 Start Date: 08/09/14 Status: Ordered carvedilol 25 mg oral tablet 1 tablet = 25 mg, By Mouth, 2 times a day, # 60 tablet, 0 Refills, Maintenance, 09/24/14 8:32:05, Tablet Start Date: 09/24/14 Stop Date: 10/24/14 Status: Ordered ezetimibe 10 mg oral tablet 1 tablet, By Mouth, Daily, # 90 tablet, 1 Refills, Maintenance, 06/08/21 11:35:00 EDT, MEDS BY THA, 177, cm, 05/11/21 13:28:00 EST, Height, 83, kg, 08/05/20 8:41:00 EDT, Dry Weight Start Date: 06/08/21 Status: Ordered Farxiga 10 mg oral tablet 1 tablet = 10 mg, By Mouth, Daily, # 30 tablet, 0 Refills, Maintenance, 01/17/21 10:26:00 EDT, Tablet, Partial fill upon patient request if the prescription is for a schedule II opioid drug. Start Date: 01/17/21 Status: Ordered FREESTYLE MELISSA 2 SENSOR KIT See Instructions, Maintenance, 01/17/21 10:26:00 EDT, Supply Start Date: 01/17/21 Status: Ordered glipiZIDE 5 mg oral tablet, extended release 1 tablet = 5 mg, By Mouth, 2 times a day, before meals, # 180 tablet, 1 Refills, Maintenance, 08/21/21 9:15:00 EDT, ER Tablet, [facility]S BY MAIL Bruce CONNOLLY, cm, 07/19/21 11:12:00 EDT, Height, 83, kg, 08/05/20 8:41:00 EDT, Dry Weight Start Date: 08/21/21 Status: Ordered Januvia 100 mg oral tablet 1 tablet = 100 mg, By Mouth, Daily, # 90 tablet, 1 Refills, Maintenance, 08/21/21 9:12:00 EDT, Tablet, [facility] BY MAIL Bruce CONNOLLY, cm, 07/19/21 11:12:00 EDT, Height, 83, kg, 08/05/20 8:41:00 EDT, Dry Weight Start Date: 08/21/21 Status: Ordered lisinopril 40 mg oral tablet [...] for anxiety, # 30 tablet, 0 Refills, Maintenance,12/08/21 9:13:00 EDT, Tablet, MEDS BY MAIL Bruce CONNOLLY, cm, 12/08/21 8:38:00 EDT, Height, 83, kg, 08/05/20 8:41:00 EDT, Dry Weight Start Date: 12/08/21 Status: Ordered metFORMIN 1000 mg oral tablet 1 tablet, By Mouth, 2 times a day with meals, # 180 tablet, 1 Refills, Maintenance, 08/21/21 9:12:00 EDT, MEDS BY Bruce GROVES, cm, 07/19/21 11:12:00 EDT, Height, 83, kg, 08/05/20 8:41:00 EDT, Dry Weight Start Date: 08/21/21 Status: Ordered pantoprazole 40 mg oral delayed release tablet 1 tablet = 40 mg, By Mouth, Daily, # 90 tablet, 3 Refills, Maintenance, 03/31/20 14:34:00 EST, EC Tablet, 178, cm, 03/31/20 10:25:00 EST, Height, 83, kg, 11/16/18 13:47:00 EDT, Dry Weight Start Date: 03/31/20 Status: Ordered please fit patient for diabetic shoes please fit patient for diabetic shoes, See Instructions, # 2 each, Refills 0, Tot. Refills 0, Maintenance, diabetic shoes, 05/11/21 13:57:00 EST, Supply Start Date: 05/11/21 Status: Ordered pravastatin 80 mg oral tablet 1 tablet, By Mouth, Daily at bedtime, # 90 tablet, 2 Refills, Maintenance, 08/22/21 12:00:00 EDT, MEDS BY MAIL , 177, cm, 07/19/21 11:12:00 EDT, Height, 83, kg, 08/05/20 8:41:00 EDT, Dry Weight Start Date: 08/22/21 Status: Ordered Vitamin B12 1000 mcg oral [...] Date: 02/12/21 Status: Ordered Problem List Condition Effective Dates Status Health Status Inform ant Colon adenomas(Confirmed) 1 Active Anxiety(Confirmed) Active Atherosclerotic PVD with int ermittent claudication(Confirmed) Active Burning sensation(Confirmed) Active Carotid artery stenosis(Confirmed) Active Cobalamin deficiency(Confirmed) Active CAD (coronary artery disease)(Confirmed) Active Cystocele(Confirmed) Active 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) Active Dizziness(Confirmed) Active Status post pneumothorax(Confirmed) Active H/O adenomatous polyp of colon(Confirmed) Active S/P CABG x 3(Confirmed) Active Hypercalcemia(Confirmed) Active Hyperkalemia(Confirmed) Active Hyperlipidemia(Confirmed) Active Hypertensive disorder(Confirmed) Active Left pneumothorax(Confirmed) Active Loss of hair(Confirmed) Active Low back pain(Confirmed) Active PVD (peripheral vascular disease)(Confirmed) Active Sciatica(Confirmed) Active Subclinical hyperthyroidism(Confirmed) Active Type 2 diabetes mellitus(Confirmed) Active Social History Social History Type Response Smoking Status Former smoker, quit more than 30 days ago; Other: quit 2004; entered on: 07/19/21 Sex Care Team Personnel Name: Dana Arriaga Address: [address] [place] [address] [place], [place] [address]
--- OUTSIDE RECORDS SUMMARY | 2024-02-15 00:41 | XMS_ITS | Continuity of Care Document ---
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 Name Role Phone Dana Arriaga Primary Care Physician [phone] Encounter [facility] Date(s): 08/05/23 - 09/06/23 [facility] [address] [place], [place] [address] Attending Physician: Lizzeth Sauceda NP Admitting Physician: Lizzeth Sauceda NP Referring Physician: Dana Arriaga Allergies, Adverse Reactions, Alerts Substance Reaction Severity [...] influenza virus vaccine, inactivated 01/05/16 Vazquez rded [id number] bivalent booster vax 01/15/22 Recorded tetanus-diphtheria toxoids [...] pneumococcal 23-valent vaccine 09/15/00 Recorded 1Result Comment: [id number] 2Result Comment: SCREENING CHECKLIST REVIEWED. [facility] [id number] 3Result Comment: Screening checklist reviewed. [facility] [id number] 4Result Comment: [facility] [id number] Medications acetaminophen 325 mg oral tablet = 650 mg, By Mouth, Every 4 hours, Greater than 101 F or Mild Pain, 0 Refills, Maintenance, 08/09/14 14:49:05, Tablet Start Date: 08/09/14 Status: Ordered amLODIPine 2.5 mg oral tablet 2.5 mg, 1, tablet, By Mouth, Daily, # 90 tablet, Refills 1, Tot. Refills 1, Maintenance, 08/20/22 9:10:00 EDT, Route to Pharmacy Electronically, [facility], Partial fill upon patient request if the prescription is for a schedule II opioid Start Date: 08/20/22 Status: Ordered amLODIPine 5 mg oral tablet 5 mg, 1, tablet, By Mouth, Daily, # 90 tablet, Refills 1, Tot. Refills 1, Maintenance, 07/05/23 11:38:00 EDT, Route to Pharmacy Electronically, [facility], Partial fill upon patient request if the prescription is for a schedule II opioid Start Date: 07/05/23 Status: Ordered Aspirin Tablet 81 mg, By [...] Daily, # 90 tablet, 1 Refills, Maintenance, 06/24/23 10:09:00 EDT, MEDS BY MAILMOHSEN, 181, cm, 06/20/23 14:26:00 EDT, Height, 80.5, kg, 06/14/23 12:37:00 EDT, Dry Weight Start Date: 06/24/23 Status: Ordered ezetimibe 10 mg oral tablet 1 tablet, By Mouth, Daily, # 90 tablet, 3 Refills, Maintenance, 01/24/23 13:32:00 EST, MEDS BY MAILMO[facility]EN, 180, cm, 01/24/23 13:10:00 EST, Height, 81.1, [...] for anxiety, # 30 tablet, 0 Refills, Maintenance,06/20/23 14:55:00 EDT, Tablet, [facility], 181, cm, 06/20/23 14:26:00 EDT, Height, 80.5,kg, 06/14/23 12:37:00 EDT, Dry Weight Start Date: 06/20/23 Status: Ordered metFORMIN 1000 mg oral tablet 1 tablet, By Mouth, 2 times a day with meals, # 14 tablet, 0 Refills, Maintenance, 08/20/22 9:11:00EDT, [facility], 180, cm, 08/12/22 21:42:00 EDT, Height, 81.1, kg, 08/12/22 21:42:00 EDT, Dry Weight Start Date: 08/20/22 Status: Ordered metFORMIN 1000 mg oral tablet 1 tablet, By Mouth, 2 times a day with meals, # 180 tablet, 1 Refills, Maintenance, 06/24/23 10:03:00 EDT, MEDS BY MAIL MOHSEN, 181, cm, 06/20/23 14:26:00 EDT, Height, 80.5, kg, 06/14/23 12:37:00 EDT, Dry Weight Start Date: 06/24/23 Status: Ordered pantoprazole 40 mg oral delayed [...] Replace Required Details, Route to Pharmacy Electronically, ID Quantique... Start Date: 09/17/22 Status: Ordered Trulicity Pen Subcutaneous Infusion, 0 Refills, Maintenance, 06/20/23 14:26:00 EDT, Partial fill upon patient request if the prescription is for a schedule II opioid drug. Start Date: 06/20/23 Status: Ordered Vitamin B12 1000 mcg oral [...] Care Nurse Name: Bal Henderson MD Position: [facility] Cardiology MD Member Role: Lifetime Consulting Physician Address: Address: [address] [place] [address]- [place] Name: Dana Arriaga Position: [facility] Associate Professional Member Role: PCP Address: Address: [address] [place] [address]- [place] Name: Daquan Sykes MD Position: [facility] Renal MD Member Role: Lifetime Consulting Physician Address: Address: [address] [facility] [place] [address]- [place] Name: Lourdes Porter RN Position: S RN Member Role: Primary Care Nurse Name: Zay Hernandes Position: S RN Member Role: Primary Care Nurse Name: Laquita Franklin RN Position: S RN Member Role: Primary Care Nurse Care Team Related Persons Name: JESSICA SAAVEDRA Address: [address] [place] [address]
--- OUTSIDE RECORDS SUMMARY | 2024-02-15 00:41 | XMS_ITS | Continuity of Care Document ---
Author Organization [facility] Address [address] [place] [address]- Care Team Providers Care Deputy Director Of Public Works Name Role Phone Dana Arriaga Primary Care Physician Unavail able Encounter [facility] Date(s): 12/10/23 - 12/17/23 [facility] [address] [place] [address]- Encounter Diagnosis PAD (peripheral artery disease)(Discharge Diagnosis) - 12/09/23 Claudication(Discharge Diagnosis) - 12/10/23 Carotid stenosis(Discharge Diagnosis) - 12/09/23 Attending Physician: Eduardo NEWSMOE, Kimberly Arredondo Admitting Physician: Eduardo NEWSOME, Kimberly Arredondo Allergies, Adverse Reactions, Alerts Substance Reaction Severity Status baclofen Drowsiness Active atorvastatin Muscle cramps Other Active polyethylene glycol 3350 Vomiting Res olved Immunizations Given and Recorded Vaccine Date Status [...] influenza virus vaccine, inactivated 01/05/16 Vazquez rded [id number] bivalent booster vax 01/15/22 Recorded tetanus-diphtheria toxoids [...] pneumococcal 23-valent vaccine 09/15/00 Recorded 1Result Comment: [id number] 2Result Comment: SCREENING CHECKLIST REVIEWED. [facility] [id number] 3Result Comment: Screening checklist reviewed. [facility] [id number] 4Result Comment: [facility] [id number] Medications acetaminophen 325 mg oral tablet = 650 mg, By Mouth, Every 4 hours, Greater than 101 F or Mild Pain, 0 Refills, Maintenance, 08/09/14 14:49:05, Tablet Start Date: 08/09/14 Status: Ordered amLODIPine 2.5 mg oral tablet 2.5 mg, 1, tablet, By Mouth, Daily, # 90 tablet, Refills 1, Tot. Refills 1, Maintenance, 08/20/22 9:10:00 EDT, Route to Pharmacy Electronically, [facility], Partial fill upon patient request if the prescription is for a schedule II opioid Start Date: 08/20/22 Status: Ordered amLODIPine 5 mg oral tablet 5 mg, 1, tablet, By Mouth, Daily, # 90 tablet, Refills 1, Tot. Refills 1, Maintenance, 07/05/23 11:38:00 EDT, Route to Pharmacy Electronically, [facility] 1967, Partial fill upon patient request if [...] Dry Weight Start Date: 01/10/22 Status: Ordered D3 By Mouth, Daily, 0 Refills, Maintenance, 10/01/23 10:17:00 EDT, Partial fill upon patient request if the prescription is for a schedule II opioid drug. Start Date: 10/01/23 Status: Ordered ezetimibe 10 mg oral tablet 1 tablet, By Mouth, Daily, # 90 tablet, 1 Refills, Maintenance, 06/24/23 10:09:00 EDT, [facility], 181, cm, 06/20/23 14:26:00 EDT, Height, 80.5, [...] 13:33:00 EST, ER Tablet, [facility], Partial fill upon patient request if the prescription is for a scheduleII opioid drug., 180, cm, 01/24/23 13:10:00 EST, He... Start Date: 01/24/23 Status: Ordered Humalog Inj Subcutaneous Infusion, 0 Refills, Maintenance, 12/03/23 10:33:00 EDT, Partial fill upon patient request if the prescription is for a schedule II opioid drug. Start Date: 12/03/23 Status: Ordered Januvia 100 mg oral tablet [...] tablet, 0 Refills, Maintenance,06/20/23 14:55:00 EDT, Tablet, [facility], 181, cm, 06/20/23 14:26:00 EDT, Height, 80.5,kg, 06/14/23 12:37:00 EDT, Dry Weight Start Date: 06/20/23 Status: Ordered metFORMIN 1000 mg oral tablet 1 tablet, By Mouth, 2 times a day with meals, # 14 tablet, 0 Refills, Maintenance, 08/20/22 9:11:00EDT, [facility], 180, cm, 08/12/22 21:42:00 [...] Dry Weight Start Date: 06/24/23 Status: Ordered NovoLOG FlexPen 100 units/mL injectable solution Subcutaneous Infusion, 3 times a day before meals, 0 Refills, Maintenance, 10/01/23 10:17:00 EDT, Partial fill upon patient request if the prescription is for a schedule II opioid drug. Start Date: 10/01/23 Status: Ordered pantoprazole 40 mg oral delayed [...] Maintenance, 01/24/23 13:33:00 EST, [facility], 180, cm, 01/24/23 13:10:00 EST, Height, 81.1, kg, 08/12/22 21:42:00 EDT, Dry Weight Start Date: 01/24/23 Status: Ordered tiZANidine 2 mg oral tablet See Instructions, Take 1-2 tab PO every 8 to 12 hours as needed for muscle spasm/pain., # 40 tablet, Refills 3, Tot. Refills 3, Maintenance, 09/17/22 14:32:00 EDT, Instructions Replace Required Details, Route to Pharmacy Electronically, [facility]... Start Date: 09/17/22 Status: Ordered Trulicity Pen [...] Active Type 2 diabetes mellitus Confirmed Active Diagnosis Diagnosis Type Effective Dates Health Status Clinical Service Informant Carotid stenosis Discharge Diagnosis 12/09/23 PAD (peripheral artery disease) Discharge Diagnosis 12/09/23 Claudication Discharge Diagnosis 12/10/23 Vital Signs Most recent to oldest [Reference Range]: 1 Height 183 cm (12/10/23 8:34 AM) Weight 79.7 kg (12/10/23 8:34 AM) Oxygen Saturation [94-100 %] 96 % (12/10/23 8:34 AM) Pulse Rate [55-90 bpm] 72 bpm (12/10/23 8:34 AM) Body Mass Index [18.5-24.99 kg/m2] 23.8 kg/m2 (12/10/23 8:34 AM) Blood Pressure [90-138/55-84 mm Hg] 142/ 60mm Hg *H* (12/10/23 8:34 AM) Mode of Delivery (Oxygen) Room air (12/10/23 8:34 AM) Blood pressure sites Arm, left (12/10/23 8:34 AM) Weight Obtained Via Patient/family state d (12/10/23 8:34 AM) Social History Social History Type Response Smoking Status Former smoker, quit more than 30 days ago; Other: quit 2004; Started at age: 16; entered on: 10/26/22 Sex Note * Lashanda Jacobson: PERFORM Event Display: Patient Education/Instruction Authored Date: [id number] Ambulatory Adult Visit Summary [address] [address] Name: GARRY SAAVEDRA : 1955?? Visit: 12/10/2023 08:27?? Ambulatory Visit Instructions ?? Your Care Team Primary Care Provider Dana Arriaga? This Visit Provider Kimberly Clark NP Your Diagnosis Carotid stenosis PAD (peripheral artery disease) Claudication Vitals Signs Pulse Rate: 72 bpm Height: 183 cm Systolic Blood Pressure:??142 mm Hg??High Weight: 79.7 kg Diastolic Blood Pressure: 60 mm Hg Body Mass Index: 23.8 kg/m2 Oxygen Saturation: 96 % Body surface area: 2.01 What to do next Scheduled Follow-Up Appointments Saturday 10:00 AM EDT ?? Where: [facility] [address] [place] [address]- Status: Pending Saturday 10:00 AM EDT ?? Where: [facility] [address] [place] [address]- Status: Pending Saturday 10:30 AM EDT ?? With: Eduardo NEWSOME, Kimberly Arredondo Where: [facility] [address] [place] [address]- Status: Pending Saturday 10:40 AM EST ?? With: Linwood NIÑO, Gasper Adams Where: [facility] [address] [place] [address]- Status: Pending Saturday 1:00 PM EST ?? Where: [facility] [address] [address]- Status: Pending Saturday 1:45 PM EST ?? Where: [facility] [address] [address]- Status: Pending 2023 10:15 AM EST ?? With: David NEWSOME, Martha Rose Where: [facility] [address] [place] [address]- Status: Pending Medications The list below reflects the information in our records and provided by you today along with any changes made during this visit. Please continue your medications until treatment is completed or stopped by your provider. If this is different from the information you have or there are other questions,please contact the prescribing provider. What How Much When Why Instructions Unchanged Acetaminophen (acetaminophen 325 mg oral tablet) 650 Milligram Oral Every 4 hours Greater than 101 F or Mild Pain ?? Unchanged Amlodipine (amLODIPine 2.5 mg oral tablet) 1 tab(s) Oral Daily Unchanged Amlodipine (amLODIPine 5 mg oral tablet) 1 tab(s) Oral Daily Unchanged Aspirin (Aspirin Tablet) 81 Milligram Oral Daily in the morning Unchanged Carvedilol (carvedilol 25 mg oral tablet) 1 tab(s) Oral Twice a day Duration: 30 Days Unchanged Cholecalciferol (D3) Oral Daily Unchanged Cyanocobalamin (Vitamin B12 1000 mcg oral tablet) 1 tab(s) Oral Daily Unchanged dapagliflozin (Farxiga 10 mg oral tablet) 1 tab(s) Oral Daily Unchanged dulaglutide (Trulicity Pen) Subcutaneous Infusion Unchanged Durable Medical Equipment (Contour Next EZ Test Strips) See instructions use to check fingerstick blood sugar twice a day Diagnosis E11.9 ?? Unchanged Durable Medical Equipment (please fit patient for diabetic shoes) See instructions diabetic shoes ?? Unchanged Ezetimibe (ezetimibe 10 mg oral tablet) 1 tab(s) Oral Daily Duration: 90 Days Unchanged Ezetimibe (ezetimibe 10 mg oral tablet) 1 tab(s) Oral Daily Unchanged GlipiZIDE (glipiZIDE 5 mg oral tablet, extended release) 3 tab(s) Oral Daily Unchanged Insulin Aspart (NovoLOG FlexPen 100 units/ mL injectable solution) Subcutaneous Infusion 3 times a day before meals Unchanged Insulin Lispro (Humalog Inj) Subcutaneous Infusion Unchanged Lisinopril (lisinopril 40 mg oral tablet) 1 tab(s) Oral Daily Unchanged Lorazepam (LORazepam 0.5 mg oral tablet) 1 tab(s) Oral Daily as needed for as needed for anxiety Anxiety Unchanged Metformin (metFORMIN 1000 mg oral tablet) 1 tab(s) Oral Two times a day with meals Unchanged Metformin (metFORMIN 1000 mg oral tablet) 1 tab(s) Oral Two times a day with meals Unchanged Pantoprazole (pantoprazole 40 mg oral delayed release tablet) 1 tab(s) Oral Daily Unchanged Pravastatin (pravastatin 80 mg oral tablet) 1 tab(s) Oral Daily at Bedtime Unchanged rivaroxaban (Xarelto 2.5 mg oral tablet) 1 tab(s) Oral Twice a day Unchanged sitagliptin (Januvia 100 mg oral tablet) 1 tab(s) Oral Daily Unchanged Tizanidine (tiZANidine 2 mg oral tablet) See instructions Take 1-2 tab PO every 8 to 12 hours as needed for muscle spasm/ pain. ?? Medications and Immunizations Administered Medications Given During Visit No medications given during this visit.?? Allergies (NKA means No Known Allergies) atorvastatin??(Muscle cramps, Other) baclofen??(Drowsiness) Common Emergency Awareness Tips IS IT A STROKE? Act FAST and Check for these signs: FACE Does the face look uneven? ARM Does one arm drift down? SPEECH Does their speech sound strange? TIME Call at any sign of stroke ?? Heart Attack Signs Chest discomfort: Most heart attacks involve discomfort in the center of the chest and lasts more than a few minutes, or goes away and comes back. It can feel like uncomfortable pressure, squeezing, fullness or pain. Discomfort in upper body: Symptoms can include pain or discomfort in one or both arms, back, neck, jaw or stomach. Shortness of breath: With or without discomfort. Other signs: Breaking out in a cold sweat, nausea, or lightheaded. Remember, MINUTES DO MATTER. If you experience any of these heart attack warning signs, call to get immediate medical attention! ?? Smoking can increase your chances of developing chronic health problems and can cause harmful effects to other family members in your house. If you smoke, you are strongly encouraged to quit. Please call [facility] at [phone] or [phone] ([phone]) or log in to [email or web address] for referrals to smoking cessation programs. ?? The National Suicide Prevention Hotline is available 08/10 if you or someone you know needs to find a reason to keep living. By calling 8-688-012-[facility] (1783) you'll be connected to a skilled, trained counselor at a crisis center in your area. [facility] You can view and manage your care through the patient portal or by using a health care sherry of your choosing. [email or web address][employer] is a website that allows you to securely view your medical information including your hospital discharge summary, office visit summaries, medications and follow-up visits. You can also request appointments, renew medications, and request access to your medical information using a health care sherry of your choosing, or just ask a question. You can enroll at [email or web address] or register during your next office visit. [facility], in keeping with [facility] guidance, no longer requires face masks for staff, patientsor visitors in most situations. Similiar to time spent indoors at other locations, there is the chance that you were exposed to repiratory viruses during your time with us (such as flu or COVID-19). If you develop symptoms concerning for a viral respiratory infection, please seek testing (and treatment if indicated) from your medical provider or home test kit. ?? Disclaimer: The information provided is of a general nature and is intended to be used in conjunction with the recommendations and advice of your health care practitioner. Every effort has been made to ensure that the information provided is accurate and complete at the time it is provided to you however, as your needs change, or, as new information becomes available, different or additional instructions may be required. ?? If you have questions, please consult with your primary care provider or pharmacist, as appropriate. This information is not intended to serve as substitution for assessment and evaluation by a qualified health care provider. If you do not have a primary care provider, you may find a [facility] provider by calling [facility] at [phone]. Patient Care team information Care Team Personnel Name: Alvin DELATORRENelli Position: [facility] RN Member Role: Primary Care Nurse Name: Gasper Palumbo MD Position: [facility] CRYPTOANALYSIS TEACHER MD Member Role: Lifetime CRYPTOANALYSIS TEACHER Physician Address: Address: [address] [place] [address] [address] [facility] [place] [address]- [place] Name: Bal Henderson MD Position: [facility] Cardiology MD Member Role: Lifetime Consulting Physician Address: Address: [address] [place] [address]- [place] Name: Dana Arriaga Position: [facility] Associate Professional Member Role: PCP Name: Daquan Sykes MD Position: [facility] Renal MD Member Role: Lifetime Consulting Physician Address: Address: [address] [place] [address] [address] [facility] [place] [address]- Name: Lourdes Porter RN Position: S RN Member Role: Primary Care Nurse Name: Zay Hernandes Position: [facility] RN Member Role: Primary Care Nurse Name: Laquita Franklin RN Position: [facility] RN Member Role: Primary Care Nurse Care Team Related Persons Name: JESSICA SAAVEDRA Address: home [address] [place] [address]
--- OUTSIDE RECORDS SUMMARY | 2024-02-15 00:41 | XMS_ITS | Continuity of Care Document ---
Author Organization [facility] ter Address [address] [place] [address]- Care Team Providers Care Paper Reeler Name Role Phone Paris Cartagena MD Primary Care Physician [phone] Encounter [facility] Date(s): 12/24/19 - 05/13/[address] [address] Attending Physician: Kalin Aguillon MD Admitting Physician: Kalin Aguillon MD Allergies, Adverse Reactions, Alerts Substance Reaction Severity Status baclofen Drowsiness Active atorvastatin Muscle cramps Other Active polyethylene glycol 3350 Vomiting <not entered> Ac tive Immunizations Given and Recorded Vaccine Date Status Refusal Reason influenza virus vaccine, inactivated 1 12/23/19 Gi bettye influenza virus vaccine, inactivated 2 01/20/19 Gi bettye influenza virus vaccine, inactivated 3 01/20/19 Gi bettye Influenza Virus Vaccine (oldterm) 12/14/16 Recorde d pneumococcal 13-valent vaccine 03/09/16 Recorded tetanus/diphtheria/pertussis, acel(Tdap) 10/24/11 Recorded tetanus-diphtheria toxoids (Td) 05/16/01 Recorded pneumococcal 23-valent vaccine 09/15/00 Recorded 1Result Comment: [id number] 2Result Comment: SCREENING CHECKLIST REVIEWED. [facility] [id number] 3Result Comment: Screening checklist reviewed. [facility] [id number] Medications acetaminophen 325 mg oral tablet = 650 mg, By Mouth, Every 4 hours, Greater than 101 F or Mild Pain, 0 Refills, Maintenance, 08/09/14 14:49:05, Tablet Start Date: 08/09/14 Status: Ordered amLODIPine 2.5 mg oral tablet 2.5 mg, 1, tablet, By Mouth, Daily, # 90 tablet, Refills 0, Tot. Refills 0, Maintenance, 03/31/20 14:39:00 EST, Route to Pharmacy Electronically, [facility], 178, cm, 03/31/20 10:25:00 EST,Height, 83, kg, 11/16/18 13:47:00 EDT, Dry Weight Start Date: 03/31/20 Status: Ordered Aspirin Tablet 81 mg, By Mouth, Daily in AM, Maintenance, 08/09/14 14:49:37 Start Date: 08/09/14 Status: Ordered carvedilol 25 mg oral tablet 1 tablet = 25 mg, By Mouth, 2 times a day, # 60 tablet, 0 Refills, Maintenance, 09/24/14 8:32:05, Tablet Start Date: 09/24/14 Stop Date: 10/24/14 Status: Ordered Colace sodium 100 mg oral capsule 200 mg, 2, capsule, By Mouth, Daily, Refills 0, Maintenance, 11/08/19 18:19:00 EDT Start Date: 11/08/19 Status: Ordered Contour Next EZ Test Strips See Instructions, # 270 each, Refills 3, Tot. Refills 3, Maintenance, Used to test fingerstick blood sugar 3 times a day, 04/09/19 15:41:00 EST, dx E11.9, Compound, 180, cm, 01/20/19 11:01:00 EST, Height, 83, kg, 11/16/18 13:47:00 EDT, Dry Weight Start Date: 04/09/19 Status: Ordered CONTOUR NEXT TEST STRP See Instructions, # 200 Unknown, Refills 6 Tot. Refills 6, USE TO TEST BLOOD SUGAR 3-4 TIMES A DAY,[facility] Start Date: 07/01/18 Status: Ordered Emergen-C 0 Refills, Maintenance, 11/08/19 18:19:00 EDT Start Date: 11/08/19 Status: Ordered glipiZIDE 5 mg oral tablet, extended release 1 tablet = 5 mg, By Mouth, 2 times a day, before meals, # 180 tablet, 1 Refills, Maintenance, 02/12/20 10:49:00 EST, ER Tablet, [facility] , 178, cm, 01/27/20 10:40:00 EST, Height, 83, kg, 11/16/18 13:47:00 EDT, Dry Weight Start Date: 02/12/20 Status: Ordered hydrochlorothiazide 25 mg oral tablet 1, tablet, By Mouth, Daily, # 90 tablet, Refills 0, Tot. Refills 0, Maintenance, 03/31/20 14:36:00 EST, Route to Pharmacy Electronically, [facility], 178, cm, 03/31/20 10:25:00 EST, Height,83, kg, 11/16/18 13:47:00 EDT, Dry Weight Start Date: 03/31/20 Status: Ordered ibuprofen 800 mg oral tablet See Instructions, 1 tablet By Mouth 2- 3 times a day with food, # 30 tablet, Refills 0, Tot. Refills 0, Maintenance, 11/19/18 11:13:25 EDT, Instructions Replace Required Details, Route to Pharmacy Electronically, [id number],... Start Date: 11/19/18 Status: Ordered Januvia 100 mg oral tablet 1 tablet = 100 mg, By Mouth, Daily, # 90 tablet, 0 Refills, Maintenance, 03/31/20 14:37:00 EST, Tablet, [facility] , 178, cm, 03/31/20 10:25:00 EST, Height, 83, kg, 11/16/18 13:47:00 EDT, Dry Weight Start Date: 03/31/20 Status: Ordered Lidoderm 5% film 1 patch, Topically, Daily, # 7 patch, 0 Refills, Maintenance, 11/16/18 13:39:46 EDT Start Date: 11/16/18 Stop Date: 11/23/18 Status: Ordered lisinopril 20 mg oral tablet 2 times a day, ORAL, TABLET, 0 Refill(s),, Refills 0, 10/19/18 15:20:00 EDT Start Date: 10/19/18 Status: Ordered LORazepam 0.5 mg oral tablet 1 tablet = 0.5 mg, By Mouth, Daily, PRN as needed for anxiety, # 30 tablet, 0 Refills, Maintenance,01/28/20 19:08:00 EST, Tablet, [facility] 1967, 178, cm, 01/27/20 10:40:00 EST, Height, 83, kg, 11/16/18 13:47:00 EDT, Dry Weight Start Date: 01/28/20 Status: Ordered metFORMIN 1000 mg oral tablet 1 tablet, By Mouth, 2 times a day with meals, # 180 tablet, 0 Refills, Maintenance, 03/31/20 14:36:00 EST, [facility], 178, cm, 03/31/20 10:25:00 EST, Height, 83, kg, 11/16/18 13:47:00 EDT,Dry Weight Start Date: 03/31/20 Status: Ordered pantoprazole 40 mg oral delayed release tablet 1 tablet = 40 mg, By Mouth, Daily, # 90 tablet, 3 Refills, Maintenance, 03/31/20 14:34:00 EST, EC Tablet, 178, cm, 03/31/20 10:25:00 EST, Height, 83, kg, 11/16/18 13:47:00 EDT, Dry Weight Start Date: 03/31/20 Status: Ordered pravastatin 80 mg oral tablet 1 tablet, By Mouth, Daily at bedtime, # 90 tablet, 1 Refills, Maintenance, 03/31/20 14:38:00 EST, [facility], 178, cm, 03/31/20 10:25:00 EST, Height, 83, kg, 11/16/18 13:47:00 EDT, Dry Weight Start Date: 03/31/20 Status: Ordered Zetia 10 mg oral tablet 1 tablet, By Mouth, Daily, # 90 tablet, 2 Refills, Maintenance, 10/19/19 20:54:00 EDT, [facility] 178, cm, 10/16/19 9:39:00 EDT, Height, 83, kg, 11/16/18 13:47:00 EDT, Dry Weight Start Date: 10/19/19 Status: Ordered Problem List Condition Effective Dates Status Health Status Inform ant Anxiety(Confirmed) Active Atherosclerotic PVD with int ermittent [...] Social History Type Response Smoking Status Former smoker entered on: 01/18/15 Sex
--- OUTSIDE RECORDS SUMMARY | 2024-02-15 00:41 | XMS_ITS | Continuity of Care Document ---
Author Organization [facility] Address [address] [place] [address]- Care Team Providers Care Stapler Machine Name Role Phone Dana Arriaga Primary Care Physician [facility])[phone] Encounter [facility] Date(s): 03/20/23 - 04/19/23 [facility] [address] [place] [address]- [place] Allergies, Adverse Reactions, Alerts Substance Reaction Severity [...] influenza virus vaccine, inactivated 01/05/16 Vazquez rded [id number] bivalent booster vax 01/15/22 Recorded tetanus-diphtheria toxoids [...] pneumococcal 23-valent vaccine 09/15/00 Recorded 1Result Comment: [id number] 2Result Comment: SCREENING CHECKLIST REVIEWED. [facility] [id number] 3Result Comment: Screening checklist reviewed. [facility] [phone] 4Result Comment: [facility] [id number] Medications acetaminophen 325 mg oral tablet = 650 mg, By Mouth, Every 4 hours, Greater than 101 F or Mild Pain, 0 Refills, Maintenance, 08/09/14 14:49:05, Tablet Start Date: 08/09/14 Status: Ordered amLODIPine 2.5 mg oral tablet 2.5 mg, 1, tablet, By Mouth, Daily, # 90 tablet, Refills 1, Tot. Refills 1, Maintenance, 08/20/22 9:10:00 EDT, Route to Pharmacy Electronically, [facility], Partial fill upon patient request if the prescription is for a schedule II opioid Start Date: 08/20/22 Status: Ordered amLODIPine 5 mg oral tablet 5 mg, 1, tablet, By Mouth, Daily, # 90 tablet, Refills 1, Tot. Refills 1, Maintenance, 01/14/23 16:32:00 EDT, Route to Pharmacy Electronically, [facility] 1967, Partial fill upon patient request [...] tablet, 0 Refills, Maintenance,12/27/22 12:32:00 EDT, Tablet, [facility] 1967, 180, cm, 10/26/22 13:43:00 EDT, [...] 14 tablet, 0 Refills, Maintenance, 08/20/22 9:11:00EDT, [facility], 180, cm, 08/12/22 21:42:00 EDT, [...] Replace Required Details, Route to Pharmacy Electronically, [facility]... Start Date: 09/17/22 Status: Ordered Vitamin B12 [...] Role: Primary Care Nurse Name: Santiago NIÑO, Bal Sweeney Position: [facility] Cardiology MD Member Role: Lifetime Consulting Physician Address: Address: [address] [place] [address]- [place] Name: Dana Arriaga Position: [facility] Associate Professional Member Role: PCP Address: Address: [address] [facility] [address] [place] [address]- [place] Name: Daquan Sykes MD Position: [facility] Renal MD Member Role: Lifetime Consulting Physician Address: Address: [address] [facility] [address] [facility] [place] [address]- [place] Name: Lourdes Porter RN Position: S RN Member Role: Primary Care Nurse Name: Zay Hernandes Position: S RN Member Role: Primary Care Nurse Name: Laquita Franklin RN Position: S RN Member Role: Primary Care Nurse Care Team Related Persons Name: JESSICA SAAVEDRA Address: home [address] [place] [address]
--- OUTSIDE RECORDS SUMMARY | 2024-02-15 00:41 | XMS_ITS | Continuity of Care Document ---
Author Organization [facility] Address [address] [place] [address]- Care Team Providers Care Surfacer Name Role Phone Dana Arriaga Primary Care Physician Encounter [facility] Date(s): 12/05/23 - 01/04/24 [facility] [address] [place], [place] [address] Allergies, Adverse Reactions, Alerts Substance Reaction Severity [...] influenza virus vaccine, inactivated 01/05/16 Vazquez rded [id number] bivalent booster vax 01/15/22 Recorded tetanus-diphtheria toxoids [...] pneumococcal 23-valent vaccine 09/15/00 Recorded 1Result Comment: [id number] 2Result Comment: SCREENING CHECKLIST REVIEWED. [facility] [id number] 3Result Comment: Screening checklist reviewed. [facility] [id number] 4Result Comment: [facility] [id number] Medications acetaminophen 325 mg oral tablet = 650 mg, By Mouth, Every 4 hours, Greater than 101 F or Mild Pain, 0 Refills, Maintenance, 08/09/14 14:49:05, Tablet Start Date: 08/09/14 Status: Ordered amLODIPine 2.5 mg oral tablet 2.5 mg, 1, tablet, By Mouth, Daily, # 90 tablet, Refills 1, Tot. Refills 1, Maintenance, 08/20/22 9:10:00 EDT, Route to Pharmacy Electronically, [facility], Partial fill upon patient request if the prescription is for a schedule II opioid Start Date: 08/20/22 Status: Ordered amLODIPine 5 mg oral tablet 5 mg, 1, tablet, By Mouth, Daily, # 90 tablet, Refills 1, Tot. Refills 1, Maintenance, 07/05/23 11:38:00 EDT, Route to Pharmacy Electronically, [facility], Partial fill upon patient request if [...] Refills, Maintenance, 06/24/23 10:09:00 EDT, [facility], 181, cm, 06/20/23 14:26:00 EDT, Height, 80.5, [...] 0 Refills, Maintenance,06/20/23 14:55:00 EDT, Tablet, [facility] 1967, 181, cm, 06/20/23 14:26:00 EDT, Height, 80.5,kg, 06/14/23 12:37:00 EDT, Dry Weight Start Date: 06/20/23 Status: Ordered metFORMIN 1000 mg oral tablet 1 tablet, By Mouth, 2 times a day with meals, # 14 tablet, 0 Refills, Maintenance, 08/20/22 9:11:00EDT, [facility], 180, cm, 08/12/22 21:42:00 [...] Replace Required Details, Route to Pharmacy Electronically, [facility]... Start Date: 09/17/22 Status: Ordered Trulicity Pen [...] Team Personnel Name: Nelli Esquivel RN Position: [facility] RN Member Role: Primary Care Nurse Name: Gasper Palumbo MD Position: [facility] SENIOR INTERNATIONAL TAX MANAGER MD Member Role: Lifetime SENIOR INTERNATIONAL TAX MANAGER Physician Address: Address: [address] [place] [address] [place] [address]- [place] Name: Bal Henderson MD Position: [facility] Cardiology MD Member Role: Lifetime Consulting Physician Address: Address: [address] [place] [address]- [place] Name: Dana Arriaga Position: Reference Physician Member Role: PCP Address: Address: [address] [place] [address]- Name: Daquan Sykes MD Position: [facility] Renal MD Member Role: Lifetime Consulting Physician Address: Address: [address] [place] [address] [address] [facility] [place] [address]- Name: Lourdes Porter RN Position: S RN Member Role: Primary Care Nurse Name: Zay Hernandes Position: [facility] RN Member Role: Primary Care Nurse Name: Laquita Franklin RN Position: [facility] RN Member Role: Primary Care Nurse Care Team Related Persons Name: JESSICA SAAVEDRA Address: home [address] [place] [address]
--- OUTSIDE RECORDS SUMMARY | 2024-02-15 00:41 | XMS_ITS | Continuity of Care Document ---
Author Organization [facility] Address [address] [place] [address]- Care Team Providers Care Chief Design Engineer Name Role Phone Paris Cartagena MD Primary Care Physician Encounter [facility] Date(s): 01/17/22 - 02/16/22 [facility] [address] [place], [place] [address] Attending Physician: Samantha Carrion Admitting Physician: AdmSamantha pacheco Referring Physician: AdmtrSamantha Allergies, Adverse Reactions, Alerts Substance Reaction Severity Status baclofen Drowsiness Active atorvastatin Muscle cramps Other Active polyethylene glycol 3350 Vomiting <not entered> Ac tive Immunizations Given and Recorded Vaccine Date Status Refusal Reason tetanus-diphtheria toxoids (Td) 1 01/01/22 Given tetanus-diphtheria toxoids (Td) 05/16/01 Recorded zoster vaccine, inactivated 12/25/21 Recorded zoster vaccine, inactivated 10/23/21 Recorded influenza virus vaccine, inactivated 12/19/21 Vazquez rded influenza virus vaccine, inactivated 12/20/20 Vazquez rded influenza virus vaccine, inactivated 2 12/23/19 Gi bettye influenza virus vaccine, inactivated 3 01/20/19 Gi bettye influenza virus vaccine, inactivated 4 01/20/19 Gi bettye influenza virus vaccine, inactivated 12/03/17 Vazquez rded influenza virus vaccine, inactivated 01/05/16 Vazquez rded SARS-CoV-2 (COVID-19) mRNA-1273 vaccine 08/07/21 R ecorded SARS-CoV-2 (COVID-19) mRNA-1273 vaccine 01/12/21 R ecorded SARS-CoV-2 (COVID-19) mRNA-1273 vaccine 06/23/20 R ecorded SARS-CoV-2 (COVID-19) mRNA-1273 vaccine 05/27/20 R ecorded Influenza Virus Vaccine (oldterm) 12/14/16 Recorde d pneumococcal 13-valent vaccine 03/09/16 Recorded tetanus/diphtheria/pertussis, acel(Tdap) 10/24/11 Recorded pneumococcal 23-valent vaccine 09/15/00 Recorded 1Result Comment: [facility] [id number] 2Result Comment: [id number] 3Result Comment: SCREENING CHECKLIST REVIEWED. [facility] [id number] 4Result Comment: Screening checklist reviewed. [facility] [id number] Medications acetaminophen 325 mg oral tablet = 650 mg, By Mouth, Every 4 hours, Greater than 101 F or Mild Pain, 0 Refills, Maintenance, 08/09/14 14:49:05, Tablet Start Date: 08/09/14 Status: Ordered amLODIPine 2.5 mg oral tablet 2.5 mg, 1, tablet, By Mouth, Daily, Refills 0, Maintenance, 01/01/22 14:02:00 EDT, Partial fill upon patient request if the prescription is for a schedule II opioid drug. Start Date: 01/01/22 Status: Ordered Aspirin Tablet 81 mg, By [...] tablet, By Mouth, Daily, # 90 tablet, 0 Refills, Maintenance, 12/25/21 11:07:00 EDT, [facility], cm, 12/08/21 8:38:00 EDT, Height, 83, kg, 08/05/20 8:41:00 EDT, Dry Weight Start Date: 12/25/21 Status: Ordered Farxiga 10 mg oral tablet [...] 08/21/21 9:15:00 EDT, ER Tablet, [facility], cm, 07/19/21 11:12:00 EDT, Height, 83, kg, 08/05/20 8:41:00 EDT, Dry Weight Start Date: 08/21/21 Status: Ordered Januvia 100 mg oral tablet 1 tablet = 100 mg, By Mouth, Daily, # 90 tablet, 1 Refills, Maintenance, 08/21/21 9:12:00 EDT, Tablet, [facility], cm, 07/19/21 11:12:00 [...] Refills, Maintenance,12/08/21 9:13:00 EDT, Tablet, [facility], cm, 12/08/21 8:38:00 EDT, Height, 83, kg, 08/05/20 8:41:00 EDT, Dry Weight Start Date: 12/08/21 Status: Ordered metFORMIN 1000 mg oral tablet 1 tablet, By Mouth, 2 times a day with meals, # 180 tablet, 1 Refills, Maintenance, 08/21/21 9:12:00 EDT, [facility], 177, cm, 07/19/21 11:12:00 EDT, Height, 83, [...] Maintenance, 08/22/21 12:00:00 EDT, [facility], 177, cm, 07/19/21 11:12:00 EDT, Height, 83, [...] Other: quit 2004; entered on: 07/19/21 Sex Note * Daniela Madrigal: PERFORM Event Display: Cardiovascular Results Scanned Authored Date: Patient Care team information Care Team Personnel Name: Nelli Esquivel RN Position: S RN Member Role: Primary Care Nurse Name: Bal Henderson MD Position: [facility] Cardiology MD Member Role: Lifetime Consulting Physician Address: Address: [address] [place] [address]- Name: Paris Cartagena MD Position: [facility] Primary Care Physician Member Role: PCP Address: Address: [address] [place] [address]- [place] Name: Daquan Sykes MD Position: [facility] Renal MD Member Role: Lifetime Consulting Physician Address: Address: [address] [facility] [address] [facility] [place] [address]- [place] Name: Lourdes Porter RN Position: S RN Member Role: Primary Care Nurse Name: Zay Hernandes Position: S RN Member Role: Primary Care Nurse Name: Laquita Franklin RN Position: S RN Member Role: Primary Care Nurse Care Team Related Persons Name: JESSICA SAAVEDRA Address: home [address] [place] [address]
--- OUTSIDE RECORDS SUMMARY | 2024-02-15 00:41 | XMS_ITS | Continuity of Care Document ---
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 Name Role Phone Dana Arriaga Primary Care Physician Encounter [facility] Date(s): 01/18/24 - 01/18/[address] [address]- Encounter Diagnosis Abdominal wall pain(Final) - 01/18/24 Discharge Disposition: A-D/C Home Attending Physician: Maria Elena Zafar DO Admitting Physician: Maria Elena Zafar DO Referring Physician: Not on Staff, Referring MD [...] influenza virus vaccine, inactivated 01/05/16 Vazquez rded [id number] bivalent booster vax 01/15/22 Recorded tetanus-diphtheria toxoids [...] pneumococcal 23-valent vaccine 09/15/00 Recorded 1Result Comment: [id number] 2Result Comment: SCREENING CHECKLIST REVIEWED. [facility] [id number] 3Result Comment: Screening checklist reviewed. [facility] [id number] 4Result Comment: [facility] [id number] Medications acetaminophen 325 mg oral tablet = 650 mg, By Mouth, Every 4 hours, Greater than 101 F or Mild Pain, 0 Refills, Maintenance, 08/09/14 14:49:05, Tablet Start Date: 08/09/14 Status: Ordered amLODIPine 2.5 mg oral tablet 2.5 mg, 1, tablet, By Mouth, Daily, # 90 tablet, Refills 1, Tot. Refills 1, Maintenance, 08/20/22 9:10:00 EDT, Route to Pharmacy Electronically, [facility], Partial fill upon patient request if the prescription is for a schedule II opioid . Start Date: 08/20/22 Status: Ordered amLODIPine 5 mg oral tablet 180 each, 0 Refill(s), TAKE 2 TABLETS BY MOUTH ONCE DAILY, 0 Refills, 01/17/24 10:29:00 EDT, Partial fill upon patient request if the prescription is for a schedule II opioid drug. Start Date: 01/17/24 Status: Ordered amLODIPine 5 mg oral tablet 5 mg, 1, tablet, By Mouth, Daily, # 90 tablet, Refills 1, Tot. Refills 1, Maintenance, 07/05/23 11:38:00 EDT, Route to Pharmacy Electronically, [facility], Partial fill upon patient request if the prescription is for a schedule II opioid . Start Date: 07/05/23 Status: Ordered amoxicillin 500 mg oral capsule 15 each, 0 Refill(s), TAKE 1 CAPSULE BY MOUTH EVERY 8 HOURS FOR 5 DAYS, 0 Refills, 01/17/24 10:29:00 EDT, Partial fill upon patient request if the prescription is for a schedule II opioid drug. Start Date: 01/17/24 Status: Ordered Aspirin Tablet 81 mg, By [...] 13:33:00 EST, ER Tablet, [facility], Partial fill upon patient request if the prescription is for a scheduleII opioid drug., 180, cm, 01/24/23 13:10:00 EST, He... Start Date: 01/24/23 Status: Ordered Humalog Inj Subcutaneous Infusion, 0 Refills, Maintenance, 12/03/23 10:33:00 EDT, Partial fill upon patient request if the prescription is for a schedule II opioid drug. Start Date: 12/03/23 Status: Ordered lidocaine 5% topical film 1 patch, Topically, Daily, PRN Pain , Mild, for 30 days, remove after 12 hours, # 30 patch, 0 Refills, Acute 02/17/24 21:10:00 EST, 01/18/24 21:10:00 EDT, Film, [facility] 1966, Partial fill upon patient request if the prescription is for a sche... Start Date: 01/18/24 Stop Date: 02/17/24 Status: Ordered LORazepam 0.5 mg oral tablet 1 tablet = 0.5 mg, By Mouth, Daily, PRN as needed for anxiety, # 30 tablet, 0 Refills, Maintenance,06/20/23 14:55:00 EDT, Tablet, [facility] 1966, 181, cm, 06/20/23 14:26:00 EDT, Height, 80.5,kg, [...] Dry Weight Start Date: 06/24/23 Status: Ordered Miscellaneous Rx 0 Refills, 2 each, 0 Refill(s), USE DIRECTED, 01/17/24 10:29:00 EDT Start Date: 01/17/24 Status: Ordered NovoLOG FlexPen 100 units/mL injectable [...] Replace Required Details, Route to Pharmacy Electronically, Retrophin... Start Date: 09/17/22 Status: Ordered Vitamin B12 [...] Active Type 2 diabetes mellitus Confirmed Active Results Radiology Reports * Exam Date Time Procedure Performing Provider Status 01/18/24 7:[address] Abd/Pelvis W/ IV Contrast Only Mame Anthony T; Auth (Verified) Notes: (CT Abd/Pelvis W/ IV Contrast Only) Reason For Exam: Pain RESULT: CT Abd/Pelvis W/ IV Contrast Only CT Abd/Pelvis W/ IV Contrast Only Hx of Present Illness: LLQ pain x3 weeks. Pt denies N V diarrhea fever. Reports normal po intake and bowel movements.; Reason: Pain; Clinical Question(s): Diverticulitis TECHNIQUE: Spiral CT through the abdomen and pelvis with IV contrast formatted in 3 planes. 100 cc of Isovue 300 was administered intravenously. This study was performed without oral contrast. Weight-based protocol using automatic tube modulation was used to optimize exposure parameters. COMPARISON: CT abdomen pelvis 09/30/2023 FINDINGS: Pig Machine Operator Helper View Findings, Lines and Tubes: None. Visualized Chest: Lung bases are clear. No pleural effusion. The heart is normal in size. No pericardial effusion. Diaphragm: Normal. Liver: Normal. Gallbladder: No CT evidence of gallbladder pathology. Bile ducts: No biliary ductal dilation. Spleen: Normal. Pancreas: Normal. Adrenal glands: Normal. Kidneys and ureters: No hydronephrosis, stones, or suspicious masses. Vascular calcifications in both kidneys. Simple appearing renal cysts and hypodensities that are too small to characterize are noted, requiring no dedicated follow up. Bladder: Normal. Reproductive organs: Vaginal pessary in place. The uterus unremarkable. No suspicious adnexal lesion. Stomach, small bowel, and large bowel: Stomach, small bowel and large bowel are normal in caliber. No evidence of bowel obstruction. No acute inflammatory process of the bowel. Appendix: Normal. Peritoneum and retroperitoneum: No ascites or pneumoperitoneum. No omental or mesenteric lesions. Lymph nodes: No enlarged lymph nodes. Blood vessels: Severe atherosclerotic vascular calcification but no aneurysm. Moderate multifocal atherosclerotic calcification of the SMA with mild stenoses. No evidence of venous thrombosis. Abdominal and pelvic wall: Unremarkable. Bones: No acute abnormality. Mild degenerative changes of the lumbar spine. IMPRESSION: No acute process in the abdomen or pelvis. No evidence of diverticulitis as questioned. WSN: [id number] Ordering Physician: Maria Elena Zafar Dictated By: Faheem Shelby MD Dictated Date/Time: 01/18/24 7:46 pm Reviewed By: Faheem Shelby MD Signed By: Faheem Shelby MD Signed Date/Time: 01/18/24 7:46 pm Transcribed By: GLENNY Transcribed Date/Time: 01/18/24 7:40 pm Vital Signs Most recent to oldest [Reference Range]: 1 2 3 Height 181 cm (01/18/24 6:26 PM) 181 cm (01/18/24 2:30 PM) 181 cm (01/18/24 2:28 PM) Weight 81.1 kg (01/18/24:26 PM) 81.1 kg (01/18/24 2:30 PM) 81.1 kg (01/18/24: PM) Oxygen Saturation [94-100 %] 96 % (01/18/24: PM) 96 % (01/18/24:30 PM) Pulse Rate [55-90 bpm] 60 bpm (01/18/24: PM) 71 bpm (01/18/24:30 PM) Body Mass Index [18.5-24.99 kg/m2] 24.76 kg/m2 (01/18/24: PM) 24.76 kg/m2 (01/18/24: PM) Blood Pressure [90-138/55-84 mm Hg] 157/68mm Hg *H* (01/18/24: PM) 189/83mm Hg *H* (01/18/24: PM) Respiratory Rate [16-30 br/min] 18 br/min (01/18/24: PM) 16 br/min (01/18/24:30 PM) Temperature [96.8-100.4 DegF] 97.3 DegF (01/18/24:30 PM) Mode of Delivery (Oxygen) Room air (01/18/24 6:26 PM) Room air (01/18/24 2:30 PM) Blood pressure sites Arm, right (01/18/24: PM) Arm, left (01/18/24:30 PM) Temperature Route Temporal (01/18/24 2:30 PM) Dry Weight 81.1 kg (01/18/24 6:26 PM) 81.1 kg (01/18/24 2:30 PM) 81.1 kg (01/18/24 2:28 PM) Weight Obtained Via Standing scale (01/18/24 2:30 PM) Standing scale (01/18/24 2:28 PM) Dry Weight Obtained Via Standing scale (01/18/24 2:30 PM) Standing scale (01/18/24 2:28 PM) Social History Social History Type Response Smoking Status Former smoker, quit more than 30 days ago; Other: quit 2004; Started at age: 16; entered on: 10/26/22 Sex Note * Maria Elena Zafar DO: PERFORM, SIGN, VERIFY Event Display: Patient Education Handout Authored Date: * Maria Elena Zafar DO: PERFORM Event Display: Patient Education Leaflets Authored Date: Unknown Causes of Abdominal Pain (Adult) ?? [id number] Unknown Causes of Abdominal Pain (Adult) The exact cause of your belly (abdominal) pain is not clear. Your exam and tests don't suggest a dangerous cause at this time. This does not mean that this is something to worry about. Everyone likesto know the exact cause of the problem. But sometimes with belly pain, there is no clear-cut cause,and this could be a good thing. Your symptoms can be treated, and you should feel better.?? Your condition does not seem serious now. But sometimes the signs of a serious problem may take more time to appear. For this reason,??it's important for you to watch for any new symptoms, problems,??or if your condition gets worse. Over the next few days, the abdominal pain may come and go. Or it may be constant. Other common symptoms can include nausea and vomiting. Sometimes it can be difficult to tell if you feel nauseous. You may just feel bad and not connect that feeling to nausea. Constipation, diarrhea, and a fever maygo along with the pain. The pain may continue even if treated correctly over the following days. Depending on how things go, sometimes the cause can become clear and you may need more??or different treatment. You may also need other evaluations, medicines, or tests. Home care Your healthcare provider may prescribe medicine for pain, symptoms, or an infection. ??Follow the healthcare provider's instructions for taking these medicines. General care ??? Rest as much as you can until your next exam. No strenuous activities. ??? Try to not do anything that may have caused your symptoms. This might be not taking any medicines unless otherwise directed by your healthcare provider. It might be not eating certain foods or doing certain activities. ??? Find positions that ease discomfort. A small pillow placed on your belly may help relieve pain. ??? Something warm on your belly, such as a heating pad, may help, but be careful not to burn yourself. Diet ??? Don???t??force yourself to eat, especially if having cramps, vomiting, or diarrhea. ??? Water is important so you don't get dehydrated. Soup may also be good. Sports drinks may also help, especially if they are not too acidic. Don't drink sugary drinks as this can make things worse. Take liquids in small amounts. Don???t??guzzle them. ??? Caffeine sometimes makes the pain and cramping worse. ??? Don???t take??dairy products if you have vomiting or diarrhea. ??? Don't eat large amounts at a time. Eat several small meals during the day instead of 2 or 3 larger meals. Wait a few minutesbetween bites. ??? Eat a diet low in fiber (called a low-residue diet). Foods allowed include refined breads, white rice, fruit and vegetable juices without pulp, tender meats. These foods will pass more easily through the intestine. ??? Don???t have??whole-grain foods, whole fruits and vegetables,meats, seeds, and nuts, fried or fatty foods, dairy, alcohol and spicy foods until your symptoms goaway. ?? Follow-up care Follow up with your healthcare provider, or as advised, if your pain does not begin to improve in the next 24 hours. ?? Call 911 Call?? 911 if any of these occur: ??? Trouble breathing ??? Confusion ??? Fainting or loss of consciousness ??? Rapid heart rate ??? Seizure ?? When to get medical advice Call your healthcare provider right away if any of these occur: ??? Pain gets worse or moves to theright lower abdomen ??? Vomiting or diarrhea that is new or gets worse ??? Swelling of the abdomen ??? Unable to pass stool for more than??3 days ??? Fever of 100.4??F (38??C) or higher, or as directed by your healthcare provider ??? Blood in vomit or bowel movements (dark red or black color) ??? Ye llow color of eyes and skin (jaundice) ??? Weakness, dizziness ??? Chest, arm, back, neck, or jaw pain ??? Can't keep down medicines, liquids, or water because of too much vomiting ??? If you have a vagina: unexpected vaginal bleeding or missed period ?? Last Reviewed Date: 2023 ?? [id number] [employer]. All rights reserved. This information is not intended as a substitute for professional medical care. Always follow your healthcare professional's instructions. ?? Patient Care team information Care Team Personnel Name: Nelli Esquivel RN Position: S RN Member Role: Primary Care Nurse Name: Gasper Palumbo MD Position: [facility] NUCLEAR PHARMACIST MD Member Role: Lifetime NUCLEAR PHARMACIST Physician Address: Address: [address] [place] [address] [address] [facility] [place] [address]- [place] Name: Bal Henderson MD Position: [facility] Cardiology MD Member Role: Lifetime Consulting Physician Address: Address: [address] [place] [address]- Name: Dana Arriaga Position: Reference Physician Member Role: PCP Address: Address: [address] [facility] [place] [address]- Name: Daquan Sykes MD Position: [facility] Renal MD Member Role: Lifetime Consulting Physician Address: Address: [address] [place] [address] [address] [facility] [address]- [place] Name: Lourdes Porter RN Position: S RN Member Role: Primary Care Nurse Name: Zay Hernandes Position: S RN Member Role: Primary Care Nurse Name: Laquita Franklin RN Position: S RN Member Role: Primary Care Nurse Care Team Related Persons Name: JESSICA SAAVEDRA Address: home [address] [place] [address]
--- OUTSIDE RECORDS SUMMARY | 2024-02-15 00:41 | XMS_ITS | Continuity of Care Document ---
Author Organization [facility] Address [address] [place] [address]- Care Team Providers Care Supervisor Cabinetmaker Name Role Phone Dana Arriaga Primary Care Physician Encounter [facility] Date(s): 08/13/23 - 08/20/23 [facility] [address] [place], [place] [address] Attending Physician: Martha Hernandez NP Admitting Physician: Martha Hernandez NP Referring Physician: Dana Arriaga Allergies, Adverse Reactions, Alerts Substance Reaction Severity Status baclofen Drowsiness Active polyethylene glycol 3350 Vomiting <not entered> Ac tive atorvastatin Muscle cramps Other Active Immunizations Given and Recorded Vaccine Date Status [...] influenza virus vaccine, inactivated 01/05/16 Vazquez rded [id number] bivalent booster vax 01/15/22 Recorded tetanus-diphtheria toxoids [...] pneumococcal 23-valent vaccine 09/15/00 Recorded 1Result Comment: [id number] 2Result Comment: SCREENING CHECKLIST REVIEWED. [facility] [id number] 3Result Comment: Screening checklist reviewed. [facility] 48096-203-04 4Result Comment: [facility] [id number] Medications acetaminophen 325 mg oral tablet = 650 mg, By Mouth, Every 4 hours, Greater than 101 F or Mild Pain, 0 Refills, Maintenance, 08/09/14 14:49:05, Tablet Start Date: 08/09/14 Status: Ordered amLODIPine 2.5 mg oral tablet 2.5 mg, 1, tablet, By Mouth, Daily, # 90 tablet, Refills 1, Tot. Refills 1, Maintenance, 08/20/22 9:10:00 EDT, Route to Pharmacy Electronically, [facility], Partial fill upon patient request if the prescription is for a schedule II opioid Start Date: 08/20/22 Status: Ordered amLODIPine 5 mg oral tablet 5 mg, 1, tablet, By Mouth, Daily, # 90 tablet, Refills 1, Tot. Refills 1, Maintenance, 07/05/23 11:38:00 EDT, Route to Pharmacy Electronically, [facility] 1967, Partial fill upon patient request if [...] Refills, Maintenance, 06/24/23 10:09:00 EDT, [facility], 181, cm, 06/20/23 14:26:00 EDT, Height, 80.5, [...] tablet, 0 Refills, Maintenance,06/20/23 14:55:00 EDT, Tablet, [facility], 181, cm, 06/20/23 14:26:00 EDT, Height, 80.5,kg, 06/14/23 12:37:00 EDT, Dry Weight Start Date: 06/20/23 Status: Ordered metFORMIN 1000 mg oral tablet 1 tablet, By Mouth, 2 times a day with meals, # 14 tablet, 0 Refills, Maintenance, 08/20/22 9:11:00EDT, [facility], 180, cm, 08/12/22 21:42:00 EDT, Height, 81.1, kg, 08/12/22 21:42:00 EDT, Dry Weight Start Date: 08/20/22 Status: Ordered metFORMIN 1000 mg oral tablet 1 tablet, By Mouth, 2 times a day with meals, # 180 tablet, 1 Refills, Maintenance, 06/24/23 10:03:00 EDT, [facility], 181, cm, 06/20/23 14:26:00 EDT, Height, 80.5, [...] Replace Required Details, Route to Pharmacy Electronically, [facility]... Start Date: 09/17/22 Status: Ordered Trulicity Pen [...] recent to oldest [Reference Range]: 1 Height 181 cm (08/13/23 9:34 AM) Weight 79.83 kg (08/13/23 9:34 AM) Oxygen Saturation [94-100 %] 97 % (08/13/23 9:34 AM) Pulse Rate [55-90 bpm] 70 bpm (08/13/23 9:34 AM) Body Mass Index [18.5-24.99 kg/m2] 24.37 kg/m2 (08/13/23 9:34 AM) Blood Pressure [90-138/55-84 mm Hg] 118/ 62mm Hg (08/13/23 9:34 AM) Blood pressure sites Arm, left (08/13/23 9:34 AM) Weight Obtained Via Patient/family state d (08/13/23 9:34 AM) Social History Social History Type Response Smoking Status Former smoker, quit more than 30 days ago; Other: quit 2004; Started at age: 16; entered on: 10/26/22 Sex Note * Mayo Jarrett: PERFORM Event Display: Patient Education/Instruction Authored Date: [id number] Ambulatory Adult Visit Summary [facility] [address] [facility] [address] [address] Name: GARRY SAAVEDRA : 1955?? Visit: 08/13/2023 09:29?? Ambulatory Visit Instructions ?? Your Care Team Primary Care Provider Dana Arriaga? This Visit Provider Martha Hernandez NP Your Diagnosis PVD (peripheral vascular disease) with claudication Carotid stenosis Vitals Signs Pulse Rate: 70 bpm Height: 181 cm Systolic Blood Pressure: 118 mm Hg Weight: 79.83 kg Diastolic Blood Pressure: 62 mm Hg Body Mass Index: 24.37 kg/m2 Oxygen Saturation: 97 % Body surface area: 2 Medications The list below reflects the information [...] Greater than 101 F or Mild Pain Contact prescribing physician if questions or concerns ?? Unchanged Amlodipine (amLODIPine 2.5 mg oral tablet) 1 tab(s) Oral Daily Contact prescribing physician if questions or concerns ?? Unchanged Amlodipine (amLODIPine 5 mg oral tablet) 1 tab(s) Oral Daily Contact prescribing physician if questions or concerns ?? Unchanged Aspirin (Aspirin Tablet) 81 Milligram Oral Daily in the morning Contact prescribing physician if questions or concerns ?? Unchanged Carvedilol (carvedilol 25 mg oral tablet) 1 tab(s) Oral Twice a day Duration: 30 Days Contact prescribing physician if questions or concerns ?? Unchanged Cyanocobalamin (Vitamin B12 1000 mcg oral tablet) 1 tab(s) Oral Daily Contact prescribing physician if questions or concerns ?? Unchanged dapagliflozin (Farxiga 10 mg oral tablet) 1 tab(s) Oral Daily Contact prescribing physician if questions or concerns ?? Unchanged dulaglutide (Trulicity Pen) Subcutaneous Infusion Contact prescribing physician if questions or concerns ?? Unchanged Durable Medical Equipment (Contour Next EZ Test Strips) See instructions use to check fingerstick blood sugar twice a day Diagnosis E11.9 Contact prescribing physician if questions or concerns ?? Unchanged Durable Medical Equipment (please fit patient for diabetic shoes) See instructions diabetic shoes Contact prescribing physician if questions or concerns ?? Unchanged Ezetimibe (ezetimibe 10 mg oral tablet) 1 tab(s) Oral Daily Duration: 90 Days Contact prescribing physician if questions or concerns ?? Unchanged Ezetimibe (ezetimibe 10 mg oral tablet) 1 tab(s) Oral Daily Contact prescribing physician if questions or concerns ?? Unchanged GlipiZIDE (glipiZIDE 5 mg oral tablet, extended release) 3 tab(s) Oral Daily Contact prescribing physician if questions or concerns ?? Unchanged Lisinopril (lisinopril 40 mg oral tablet) 1 tab(s) Oral Daily Contact prescribing physician if questions or concerns ?? Unchanged Lorazepam (LORazepam 0.5 mg oral tablet) 1 tab(s) Oral Daily as needed for as needed for anxiety Anxiety Contact prescribing physician if questions or concerns ?? Unchanged Metformin (metFORMIN 1000 mg oral tablet) 1 tab(s) Oral Two times a day with meals Contact prescribing physician if questions or concerns ?? Unchanged Metformin (metFORMIN 1000 mg oral tablet) 1 tab(s) Oral Two times a day with meals Contact prescribing physician if questions or concerns ?? Unchanged Pantoprazole (pantoprazole 40 mg oral delayed release tablet) 1 tab(s) Oral Daily Contact prescribing physician if questions or concerns ?? Unchanged Pravastatin (pravastatin 80 mg oral tablet) 1 tab(s) Oral Daily at Bedtime Contact prescribing physician if questions or concerns ?? Unchanged rivaroxaban (Xarelto 2.5 mg oral tablet) 1 tab(s) Oral Twice a day Contact prescribing physician if questions or concerns ?? Unchanged sitagliptin (Januvia 100 mg oral tablet) 1 tab(s) Oral Daily Contact prescribing physician if questions or concerns ?? Unchanged Tizanidine (tiZANidine 2 mg oral tablet) See instructions Take 1-2 tab PO every 8 to 12 hours as needed for muscle spasm/ pain. Contact prescribing physician if questions or concerns ?? Medications and Immunizations Administered Medications Given During Visit No medications given during this visit.?? Allergies (NKA means No Known Allergies) polyethylene glycol 3350??(Vomiting) atorvastatin??(Muscle cramps, Other) baclofen??(Drowsiness) Common Emergency Awareness [...] are strongly encouraged to quit. Please call [facility] at [phone] or [phone] ([phone]) or log in to [email or web address] for referrals to smoking cessation programs. ?? The National Suicide Prevention Hotline is available 08/10 if you or someone you know needs to find a reason to keep living. By calling 7-972-779-Beaker (7065) you'll be connected to a skilled, trained counselor at a crisis center in your area. [facility] Portal You can view and manage your care through the patient portal or by using a health care sherry of your choosing. [employer] is a website that allows you to securely view your medical information including your hospital discharge summary, office visit summaries, medications and follow-up visits. You can also request appointments, renew medications, and request access to your medical information using a health care sherry of your choosing, or just ask a question. You can enroll at [email or web address] or register during your next office visit. [facility], in keeping with [facility] guidance, no longer requires face masks [...] primary care provider, you may find a [facility] provider by calling [facility] at [phone]. Patient Care team information Care Team Personnel Name: Nelli Esquivel RN Position: S RN Member Role: Primary Care Nurse Name: Bal Henderson MD Position: [facility] Cardiology MD Member Role: Lifetime Consulting Physician Address: Address: [address] [place] [address]- [place] Name: Dana Arriaga Position: [facility] Associate Professional Member Role: PCP Address: Address: [address] [facility] [address]- [place] Name: Daquan Sykes MD Position: [facility] Renal MD Member Role: Lifetime Consulting Physician Address: Address: [address] [facility] [address] [facility] [facility] [place] [address]- [place] Name: Lourdes Porter RN Position: S RN Member Role: Primary Care Nurse Name: Zay Hernandes Position: S RN Member Role: Primary Care Nurse Name: Laquita Franklin RN Position: S RN Member Role: Primary Care Nurse Care Team Related Persons Name: JESSICA SAAVEDRA Address: home [address] [place] [address]
--- OUTSIDE RECORDS SUMMARY | 2024-02-15 00:41 | XMS_ITS | Continuity of Care Document ---
Author Organization [facility] Address [address] [place] [address]- Care Team Providers Care Physiological Chemist Name Role Phone Paris Cartagena MD Primary Care Physician Encounter [facility] Date(s): 11/04/19 - 11/11/19 [facility] [address] [place] [address] [facility] Attending Physician: Martha Hernandez NP Admitting Physician: Martha Hernandez NP Referring Physician: Paris Cartagena MD Allergies, Adverse Reactions, Alerts Substance Reaction Severity Status baclofen Drowsiness Active atorvastatin Muscle cramps Other Active polyethylene glycol 3350 Vomiting <not entered> Ac tive Immunizations Given and Recorded Vaccine Date Status Refusal Reason influenza virus vaccine, inactivated 1 01/20/19 Gi bettye influenza virus vaccine, inactivated 2 01/20/19 Gi bettye Influenza Virus Vaccine (oldterm) 12/14/16 Recorde d pneumococcal 13-valent vaccine 03/09/16 Recorded tetanus/diphtheria/pertussis, acel(Tdap) 10/24/11 Recorded tetanus-diphtheria toxoids (Td) 05/16/01 Recorded pneumococcal 23-valent vaccine 09/15/00 Recorded 1Result Comment: SCREENING CHECKLIST REVIEWED. [facility] [id number] 2Result Comment: Screening checklist reviewed. [facility] [id number] Medications acetaminophen 325 mg oral tablet = 650 mg, By Mouth, Every 4 hours, Greater than 101 F or Mild Pain, 0 Refills, Maintenance, 08/09/14 14:49:05, Tablet Start Date: 08/09/14 Status: Ordered amLODIPine 2.5 mg oral tablet 2.5 mg, 1, tablet, By Mouth, Daily, # 90 tablet, Refills 1, Tot. Refills 1, Maintenance, 10/19/19 20:55:00 EDT, Route to Pharmacy Electronically, [facility], 178, cm, 10/16/19 9:39:00 EDT, Height, 83, kg, 11/16/18 13:47:00 EDT, Dry Weight Start Date: 10/19/19 Status: Ordered Aspirin Tablet 81 mg, By [...] BLOOD SUGAR 3-4 TIMES A DAY,[facility] Start Date: 07/01/18 Status: Ordered Emergen-C 0 Refills, Maintenance, 11/08/19 18:19:00 EDT Start Date: 11/08/19 Status: Ordered glipiZIDE 5 mg oral tablet, extended release 1 tablet = 5 mg, By Mouth, Daily, with breakfast, # 90 tablet, 0 Refills, Maintenance, 10/19/19 20:56:00 EDT, ER Tablet, [facility], 178, cm, 10/16/19 9:39:00 EDT, Height, 83, kg, 11/16/18 13:47:00 EDT, Dry Weight Start Date: 10/19/19 Status: Ordered hydrochlorothiazide 25 mg oral tablet 1, tablet, By Mouth, Daily, # 90 Unknown, Refills 1, Tot. Refills 0, Maintenance, 08/31/19 20:31:00EDT, Route to Pharmacy Electronically, [facility], 180, cm, 01/20/19 11:01:00 EST, Height, 83, kg, 11/16/18 13:47:00 EDT, Dry Weight Start Date: 08/31/19 Status: Ordered ibuprofen 800 mg oral tablet See Instructions, 1 tablet By Mouth 2- 3 times a day with food, # 30 tablet, Refills 0, Tot. Refills 0, Maintenance, 11/19/18 11:13:25 EDT, Instructions Replace Required Details, Route to Pharmacy Electronically, [id number],... Start Date: 11/19/18 Status: Ordered Januvia 100 mg oral tablet 1 tablet = 100 mg, By Mouth, Daily, # 90 tablet, 1 Refills, Maintenance, 10/19/19 20:56:00 EDT, Tablet, [facility], 178, cm, 10/16/19 9:39:00 EDT, Height, 83, kg, 11/16/18 13:47:00 EDT, DryWeight Start Date: 10/19/19 Status: Ordered Lidoderm 5% film 1 patch, [...] for anxiety, # 30 tablet, 0 Refills, Maintenance,10/20/19 11:58:00 EDT, [facility]t, [facility], 178, cm, 10/16/19 9:39:00 EDT, Height, 83, kg, 11/16/18 13:47:00 EDT, Dry Weight Start Date: 10/20/19 Status: Ordered metFORMIN 1000 mg oral tablet 1 tablet, By Mouth, 2 times a day with meals, # 180 tablet, 0 Refills, Maintenance, 10/19/19 20:54:00 EDT, [facility], 178, cm, 10/16/19 9:39:00 EDT, Height, 83, kg, 11/16/18 13:47:00 EDT, Dry Weight Start Date: 10/19/19 Status: Ordered Milk Thistle 0 Refills, Maintenance, 11/08/19 18:18:00 EDT Start Date: 11/08/19 Status: Ordered pantoprazole 40 mg oral enteric coated tablet 1 tablet = 40 mg, By Mouth, Daily, # 30 tablet, 0 Refills, Maintenance, 08/09/14 15:00:31, EC Tablet Start Date: 08/09/14 Status: Ordered pravastatin 80 mg oral tablet 1 tablet, By Mouth, Daily at bedtime, # 90 Unknown, 2 Refills, Maintenance, 08/31/19 20:30:00 EDT, [facility], 180, cm, 01/20/19 11:01:00 EST, Height, 83, kg, 11/16/18 13:47:00 EDT, Dry Weight Start Date: 08/31/19 Status: Ordered Zetia 10 mg oral tablet 1 tablet, By Mouth, Daily, # 90 tablet, 2 Refills, Maintenance, 10/19/19 20:54:00 EDT, [facility], 178, cm, 10/16/19 9:39:00 EDT, Height, 83, [...] hyperthyroidism(Confirmed) Active Type 2 diabetes mellitus(Confirmed) Active Vital Signs Most recent to oldest [Reference Range]: 1 Height 178 cm (11/04/19 8:51 AM) Weight 81.65 kg (11/04/19 8:51 AM) Oxygen Saturation [94-100 %] 97 % (11/04/19 8:51 AM) Pulse Rate [55-90 bpm] 68 bpm (11/04/19 8:51 AM) Body Mass Index [18.5-24.99] 25.77 *H* (11/04/19 8:51 AM) Blood Pressure [90-138/55-84 mm Hg] 122/ 90mm Hg (11/04/19 8:51 AM) Blood pressure sites Arm, right (11/04/19 8:51 AM) Weight Obtained Via Patient/family state d (11/04/19 8:51 AM) Social History Social History Type Response Smoking Status Former smoker entered on: 01/18/15 Sex
--- OUTSIDE RECORDS SUMMARY | 2024-02-15 00:41 | XMS_ITS | Continuity of Care Document ---
Author Organization [facility] Address [address] [place] [address]- Care Team Providers Care Tying Machine Operator Name Role Phone Paris Cartagena MD Primary Care Physician [phone] Encounter [facility] Date(s): 05/11/20 - 05/18/20 [facility] [address] [place] [address] Attending Physician: Martha Hernandez NP Admitting Physician: [...] pneumococcal 23-valent vaccine 09/15/00 Recorded 1Result Comment: [id number] 2Result Comment: SCREENING CHECKLIST REVIEWED. [facility] [id number] 3Result Comment: Screening checklist reviewed. [facility] 60933-013-74 Medications acetaminophen 325 mg oral tablet = [...] TO TEST BLOOD SUGAR 3-4 TIMES A DAY,[facility] Start Date: 07/01/18 Status: Ordered Emergen-C 0 Refills, Maintenance, 11/08/19 18:19:00 EDT Start Date: 11/08/19 Status: Ordered glipiZIDE 5 mg oral tablet, extended release 1 tablet = 5 mg, By Mouth, 2 times a day, before meals, # 180 tablet, 1 Refills, Maintenance, 02/12/20 10:49:00 EST, ER Tablet, [facility], 178, cm, 01/27/20 10:40:00 EST, Height, 83, kg, 11/16/18 13:47:00 EDT, Dry Weight Start Date: 02/12/20 Status: Ordered hydrochlorothiazide 25 mg oral tablet 1, tablet, By Mouth, Daily, # 90 tablet, Refills 0, Tot. Refills 0, Maintenance, 03/31/20 14:36:00 EST, Route to Pharmacy Electronically, [facility] 178, cm, 03/31/20 10:25:00 EST, Height,83, kg, 11/16/18 13:47:00 EDT, Dry Weight Start Date: 03/31/20 Status: Ordered ibuprofen 800 mg oral tablet See Instructions, 1 tablet By Mouth 2- 3 times a day with food, # 30 tablet, Refills 0, Tot. Refills 0, Maintenance, 11/19/18 11:13:25 EDT, Instructions Replace Required Details, Route to Pharmacy Electronically, [id number],... Start Date: 11/19/18 Status: Ordered Januvia 100 mg oral tablet 1 tablet = 100 mg, By Mouth, Daily, # 90 tablet, 0 Refills, Maintenance, 03/31/20 14:37:00 EST, Tablet, [facility] CONNOLLY, cm, 03/31/20 10:25:00 EST, Height, 83, kg, [...] tablet, 0 Refills, Maintenance,01/28/20 19:08:00 EST, Tablet, [facility], 178, cm, 01/27/20 10:40:00 EST, Height, 83, [...]
--- OUTSIDE RECORDS SUMMARY | 2024-02-15 00:41 | XMS_ITS | Continuity of Care Document ---
Author Organization [facility] Address [address] [place] [address]- Care Team Providers Care Plastic Maker Name Role Phone Dana Arriaga Primary Care Physician [phone] Encounter [facility] Date(s): 01/28/23 - 02/27/23 [facility] [address] [place] [address]- Attending Physician: Samantha Carrion Admitting Physician: Samantha Carrion Referring Physician: AdmtrSamantah Allergies, Adverse Reactions, Alerts Substance Reaction Severity [...] influenza virus vaccine, inactivated 01/05/16 Vazquez rded [id number] bivalent booster vax 01/15/22 Recorded tetanus-diphtheria toxoids [...] pneumococcal 23-valent vaccine 09/15/00 Recorded 1Result Comment: [id number] 2Result Comment: SCREENING CHECKLIST REVIEWED. [facility] [id number] 3Result Comment: Screening checklist reviewed. [facility] 04126-350-25 4Result Comment: [facility] [id number] Medications acetaminophen 325 mg oral tablet = 650 mg, By Mouth, Every 4 hours, Greater than 101 F or Mild Pain, 0 Refills, Maintenance, 08/09/14 14:49:05, Tablet Start Date: 08/09/14 Status: Ordered amLODIPine 2.5 mg oral tablet 2.5 mg, 1, tablet, By Mouth, Daily, # 90 tablet, Refills 1, Tot. Refills 1, Maintenance, 08/20/22 9:10:00 EDT, Route to Pharmacy Electronically, [facility], Partial fill upon patient request if the prescription is for a schedule II opioid Start Date: 08/20/22 Status: Ordered amLODIPine 5 mg oral tablet 5 mg, 1, tablet, By Mouth, Daily, # 90 tablet, Refills 1, Tot. Refills 1, Maintenance, 01/14/23 16:32:00 EDT, Route to Pharmacy Electronically, [facility], Partial fill upon patient request [...] Refills, Maintenance, 09/24/14 8:32:05, Tablet Start Date: 7/10/15 Stop Date: 10/24/14 Status: Ordered Contour Next [...] tablet, 0 Refills, Maintenance,12/27/22 12:32:00 EDT, Tablet, [facility], 180, cm, 10/26/22 [...] 14 tablet, 0 Refills, Maintenance, 08/20/22 9:11:00EDT, [facility], 180, cm, 08/12/22 [...] Replace Required Details, Route to Pharmacy Electronically, [facility] Start Date: 09/17/22 Status: Ordered Vitamin B12 [...] at age: 16; entered on: 10/26/22 Sex Cardiology * Daniela Madrigal: PERFORM Event Display: Cardiovascular Results Scanned Authored Date: [id number] Patient Care team information Care Team Personnel Name: Nelli Esquivel RN Position: S RN Member Role: Primary Care Nurse Name: Bal Henderson MD Position: [facility] Cardiology MD Member Role: Lifetime Consulting Physician Address: Address: [address] [place] [address]- [place] Name: Dana Arriaga Position: [facility] Associate Professional Member Role: PCP Address: Address: [address] [facility] [place] [address]- [place] Name: Daquan Sykes MD Position: [facility] Renal MD Member Role: Lifetime Consulting Physician Address: Address: [address] [facility] [address] [facility] [place] [address]- [place] Name: Lourdes Porter RN Position: S RN Member Role: Primary Care Nurse Name: Zay Hernandes Position: S RN Member Role: Primary Care Nurse Name: Laquita Franklin RN Position: S RN Member Role: Primary Care Nurse Care Team Related Persons Name: JESSICA SAAVEDRA Address: home [address] [place] [address]
--- OUTSIDE RECORDS SUMMARY | 2024-02-15 00:41 | XMS_ITS | Continuity of Care Document ---
Author Organization [facility] Address [address] [place] [address]- Care Team Providers Care Talent Buyer Name Role Phone Dana Arriaga Primary Care Physician Encounter [facility] Date(s): 01/28/23 - 02/04/23 [facility] [address] [place] [address]- Encounter Diagnosis Atherosclerotic PVD with intermittent claudication(Discharge Diagnosis) - 01/25/23 Carotid artery stenosis(Discharge Diagnosis) - 01/25/23 Attending Physician: Martha Hernandez NP Admitting Physician: [...] influenza virus vaccine, inactivated 01/05/16 Vazquez rded [id number] bivalent booster vax 01/15/22 Recorded tetanus-diphtheria toxoids (Td) 4 01/01/22 Given tetanus-diphtheria toxoids (Td) 05/16/01 Recorded zoster vaccine, inactivated 12/25/21 Recorded zoster vaccine, inactivated 10/23/21 Recorded SARS-CoV-2 (COVID-19) mRNA-1273 vaccine 5/23/22 R ecorded SARS-CoV-2 (COVID-19) mRNA-1273 vaccine 01/12/21 R ecorded SARS-CoV-2 (COVID-19) mRNA-1273 vaccine 06/23/20 R ecorded SARS-CoV-2 (COVID-19) mRNA-1273 vaccine 05/27/20 R ecorded Influenza Virus Vaccine (oldterm) 12/14/16 Recorde d pneumococcal 13-valent vaccine 03/09/16 Recorded tetanus/diphtheria/pertussis, acel(Tdap) 10/24/11 Recorded pneumococcal 23-valent vaccine 09/15/00 Recorded 1Result Comment: [id number] Comment: SCREENING CHECKLIST REVIEWED. [facility] 45651-021-82 3Result Comment: Screening checklist reviewed. [facility] 21714-229-20 4Result Comment: [facility] 65486-212-03 Medications acetaminophen 325 mg oral tablet = 650 mg, By Mouth, Every 4 hours, Greater than 101 F or Mild Pain, 0 Refills, Maintenance, 08/09/14 14:49:05, Tablet Start Date: 08/09/14 Status: Ordered amLODIPine 2.5 mg oral tablet 2.5 mg, 1, tablet, By Mouth, Daily, # 90 tablet, Refills 1, Tot. Refills 1, Maintenance, 08/20/22 9:10:00 EDT, Route to Pharmacy Electronically, [facility], Partial fill upon patient request if the prescription is for a schedule II opioid Start Date: 08/20/22 Status: Ordered amLODIPine 5 mg oral tablet 5 mg, 1, tablet, By Mouth, Daily, # 90 tablet, Refills 1, Tot. Refills 1, Maintenance, 01/14/23 16:32:00 EDT, Route to Pharmacy Electronically, [facility], Partial fill upon patient request if [...] tablet, 0 Refills, Maintenance,12/27/22 12:32:00 EDT, Tablet, [facility] 1967, 180, cm, 10/26/22 13:43:00 [...] 14 tablet, 0 Refills, Maintenance, 08/20/22 9:11:00EDT, [facility], 180, cm, 08/12/22 21:42:00 [...] Replace Required Details, Route to Pharmacy Electronically, [facility]... Start Date: 09/17/22 Status: Ordered Vitamin [...] Effective Dates Health Status Clinical Service Informant Atherosclerotic PVD with intermittent claudication Discharge Diagnosis 01/25/23 Carotid artery stenosis Discharge Diagnosis 01/25/23 Vital Signs Most recent to oldest [Reference Range]: 1 2 Height 180 cm (01/28/23 9:28 AM) 180 cm (01/28/23 9:24 AM) Weight 83.01 kg (01/28/23 9:24 AM) Oxygen Saturation [94-100 %] 99 % (01/28/23 9:24 AM) Pulse Rate [55-90 bpm] 72 bpm (01/28/23 9:24 AM) Body Mass Index [18.5-24.99 kg/m2] 25.62 kg/m2 *H* (01/28/23 9:24 AM) Blood Pressure [90-138/55-84 mm Hg] 160/ 72mm Hg *H* (01/28/23 9:28 AM) 160/64mm Hg *H* (01/28/23 9:24 AM) Blood pressure sites Arm, right (01/28/23 9:28 AM) Arm, left (01/28/23 9:24 AM) Weight Obtained Via Patient/family state d (01/28/23 9:24 AM) Social History Social History Type Response Smoking Status Former smoker, quit more than 30 days ago; Other: quit 2004; Started at age: 16; entered on: 10/26/22 Sex Note * Mayo Jarrett: PERFORM, SIGN, VERIFY Event Display: Patient Education/Instruction Authored Date: [id number] [facility] *[facility] [address] Clinical Summary Name GARRY SAAVEDRA Age 67 Years 1955 PCP Dana Arriaga PCP Visit Date 01/28/2023 09:17:00 Additional Instructions: Scheduled Appointments?? Future Appointments ?[facility] ?[address]??[place],??[place],??[address] ?Phone:??[phone]?Fax:??-- ?Appt. Date:??03/07/2023?9:30 AM ?Scheduled Provider:??[facility] Rm 3 Follow-Up Instructions ?? With: Address: When: Martha Hernandez NP In 6 months Comments: with Martha or Lizzeth Diagnosis Occlusion and stenosis of unspecified carotid artery; Atherosclerosis of nulato arteries of extremities with intermittent claudication, unspecified extremity Medications: Please continue your medications until treatment is completed or stopped by your provider. Discuss any questions related to medications with your provider. Medications to Continue with No Changes These medications were not printed or sent to your pharmacy Acetaminophen (acetaminophen 325 mg oral tablet) 650 Milligram Oral every 4 hours. Greater than 101F or Mild Pain. Next Dose: Amlodipine (amLODIPine 2.5 mg oral tablet) 1 tab(s) Oral Daily. Refills: 1. Next Dose: Amlodipine (amLODIPine 5 mg oral tablet) 1 tab(s) Oral Daily. Refills: 1. Next Dose: Aspirin (Aspirin Tablet) 81 Milligram Oral Daily in the morning. Next Dose: Carvedilol (carvedilol 25 mg oral tablet) 1 tab(s) Oral twice a day for 30 Days. Refills: 0. Next Dose: Cyanocobalamin (Vitamin B12 1000 mcg oral tablet) 1 tab(s) Oral Daily. Next Dose: dapagliflozin (Farxiga 10 mg oral tablet) 1 tab(s) Oral Daily. Next Dose: Durable Medical Equipment (Contour Next EZ Test Strips) use to check fingerstick blood sugar twice a day Diagnosis E11.9. Refills: 0. Next Dose: Durable Medical Equipment (please fit patient for diabetic shoes) diabetic shoes. Refills: 0. Next Dose: Ezetimibe (ezetimibe 10 mg oral tablet) 1 tab(s) Oral Daily for 90 Days. Refills: 3. Next Dose: Ezetimibe (ezetimibe 10 mg oral tablet) 1 tab(s) Oral Daily. Refills: 1. Next Dose: GlipiZIDE (glipiZIDE 5 mg oral tablet, extended release) 3 tab(s) Oral Daily. Refills: 3. Next Dose: Lisinopril (lisinopril 40 mg oral tablet) 1 tab(s) Oral Daily. Next Dose: Lorazepam (LORazepam 0.5 mg oral tablet) 1 tab(s) Oral Daily as needed as needed for anxiety. Refills: 0. Next Dose: Metformin (metFORMIN 1000 mg oral tablet) 1 tab(s) Oral two times a day with meals. Refills: 1. Next Dose: Metformin (metFORMIN 1000 mg oral tablet) 1 tab(s) Oral two times a day with meals. Refills: 0. Next Dose: Pantoprazole (pantoprazole 40 mg oral delayed release tablet) 1 tab(s) Oral Daily. Refills: 3. Next Dose: Pravastatin (pravastatin 80 mg oral tablet) 1 tab(s) Oral Daily at Bedtime. Refills: 3. Next Dose: rivaroxaban (Xarelto 2.5 mg oral tablet) 1 tab(s) Oral twice a day. Next Dose: sitagliptin (Januvia 100 mg oral tablet) 1 tab(s) Oral Daily. Refills: 1. Next Dose: Tizanidine (tiZANidine 2 mg oral tablet) Take 1-2 tab PO every 8 to 12 hours as needed for muscle spasm/pain.. Refills: 3. Next Dose: Allergy Info:?? polyethylene glycol 3350; atorvastatin; baclofen Medications Given This Visit Future Orders ?VL Ankle Brachial Indices? Order Date:07/29/23?- Complete by?08/26/23 Vital Signs Height 180 cm Weight 83.01 kg BMI 25.62 kg/m2 Blood Pressure 160 mm Hg/72 mm Hg Temperature Pulse Rate 72 bpm Respiratory Rate 02 Sat Mode of Delivery 99 %/ You can now view a summary of your hospital visit from the comfort of your home through a free online portal called [employer]. [employer] is a website that allows you to securely view your medical information including discharge summary, medications and follow-up visits. ??You can alsosend a secure electronic message to your doctor???s office to request appointments, renew medications or just ask a question. You can enroll at [email or web address] or register during your next office visit. Disclaimer:?? The information provided is of a general nature and is intended to be used in conjunction with the recommendations and advice of your health care practitioner. ??Every effort has been made to ensure that the information provided is accurate and complete at the time it is provided to you however, as your needs change, or, as new ??information becomes available, different or additional instructions may be required. If you have questions, please consult with your primary care provider or pharmacist, as appropriate. ??This information is not intended to serve as substitution for assessment and evaluation by a qualified health care provider. If you do not have a primary care provider, you may find a [facility] provider by calling [facility] [employer] Link at [phone]. [facility], in keeping with [facility] guidance, no longer requires face masks for staff, patientsor visitors in most situations. Similar to time spent indoors at other locations, there is the chance that you were exposed to respiratory viruses during your time with us (such as flu or COVID-19).? If you develop symptoms concerning for a viral respiratory infection, please seek testing (and treatment if indicated) from your medical provider or home test kit. For information about the plan of care including goals and instructions for your diagnosis, please see the patient education orders section of this document. Patient Education Materials?? The content of this educational material or handout may have been modified, supplemented, or adapted from its original content and format to support your individualized medical care. Patient Care team information Care Team Personnel Name: Nelli Esquivel RN Position: [facility] RN Member Role: Primary Care Nurse Name: Bal Henderson MD Position: [facility] Cardiology MD Member Role: Lifetime Consulting Physician Address: Address: [address] [place] [address] Name: Dana Arriaga Position: [facility] Associate Professional Member Role: PCP Address: Address: [address] [place] [address] [address] [facility] [place] [address]- [place] Name: Daquan Sykes MD Position: [facility] Renal MD Member Role: Lifetime Consulting Physician Address: Address: [address] [facility] [facility] [address] [facility] [place] [address]- [place] Name: Lourdes Porter RN Position: S RN Member Role: Primary Care Nurse Name: Zay Hernandes Position: S RN Member Role: Primary Care Nurse Name: Laquita Franklin RN Position: S RN Member Role: Primary Care Nurse Care Team Related Persons Name: JESSICA SAAVEDRA Address: home [address] [place] [address]
--- OUTSIDE RECORDS SUMMARY | 2024-02-15 00:41 | XMS_ITS | Continuity of Care Document ---
Author Organization [facility] Address [address] [place] [address]- Care Team Providers Care Cell Operator Name Role Phone Osiel NIÑO, Paris Primary Care Physician Encounter [facility] Date(s): 08/12/22 - 08/13/[address] [address]- Discharge Disposition: A-D/C Home Attending Physician: Jono Puri MD Admitting Physician: Jono Puri MD Referring Physician: Not on Staff, Referring MD Allergies, Adverse Reactions, Alerts Substance Reaction Severity Status baclofen Drowsiness Active atorvastatin Muscle cramps Other Active polyethylene glycol 3350 Vomiting <not entered> Ac tive Immunizations Given and Recorded Vaccine Date Status Refusal Reason [id number] bivalent booster vax 01/15/22 Recorded tetanus-diphtheria toxoids (Td) 1 01/01/22 Given tetanus-diphtheria [...] pneumococcal 23-valent vaccine 09/15/00 Recorded 1Result Comment: [facility] [id number] 2Result Comment: [id number] Comment: SCREENING CHECKLIST REVIEWED. [facility] [id number] 4Result Comment: Screening checklist reviewed. [facility] 26008-377-67 Medications acetaminophen 325 mg oral tablet = 650 mg, By Mouth, Every 4 hours, Greater than 101 F or Mild Pain, 0 Refills, Maintenance, 08/09/14 14:49:05, Tablet Start Date: 08/09/14 Status: Ordered amLODIPine 2.5 mg oral tablet 2.5 mg, 1, tablet, By Mouth, Daily, # 90 tablet, Refills 0, Tot. Refills 0, Maintenance, 04/30/22 11:32:00 EST, Route to Pharmacy Electronically, [facility] , Partial fill upon patient request if the prescription is for a schedule II opioid d... Start Date: 04/30/22 Status: Ordered Aspirin Tablet 81 mg, By [...] Daily, # 90 tablet, 0 Refills, Maintenance, 03/28/22 11:54:00 EST, [facility] 177, cm, 01/17/22 8:58:00 EDT, Height, 81.65, kg, 01/17/22 8:58:00 EDT, Dry Weight Start Date: 03/28/22 Status: Ordered Farxiga 10 mg oral tablet [...] Daily, # 90 tablet, 0 Refills, Maintenance, 04/06/22 22:30:00 EST, ER Tablet, Partial fill upon patient request if the prescription is for a schedule II opioid drug. Start Date: 04/06/22 Status: Ordered Januvia 100 mg oral tablet 1 tablet = 100 mg, By Mouth, Daily, # 90 tablet, 1 Refills, Maintenance, 03/28/22 15:31:00 EST, Tablet, [facility] 177, cm, 01/17/22 8:58:00 EDT, Height, 81.65, [...] for anxiety, # 30 tablet, 0 Refills, Maintenance,03/28/22 15:31:00 EST, Tablet, [facility] 177, cm, 01/17/22 8:58:00 EDT, Height, 81.65, kg, 01/17/22 8:58:00 EDT, Dry Weight Start Date: 03/28/22 Status: Ordered metFORMIN 1000 mg oral tablet 1 tablet, By Mouth, 2 times a day with meals, # 180 tablet, 1 Refills, Maintenance, 03/28/22 15:31:00 EST, [facility], 177, cm, 01/17/22 8:58:00 EDT, Height, 81.65, kg, 01/17/22 8:58:00 EDT, Dry Weight Start Date: 03/28/22 Status: Ordered pantoprazole 40 mg oral delayed [...] bedtime, # 90 tablet, 2 Refills, Maintenance, 03/28/22 15:31:00 EST, [facility], 177, cm, 01/17/22 8:58:00 EDT, Height, 81.65, kg, 01/17/22 8:58:00 EDT, Dry Weight Start Date: 03/28/22 Status: Ordered Vitamin B12 1000 mcg oral [...] Exam Date Time Procedure Performing Provider Status 08/12/22 11:[address] Head/Brain W/O Contrast Anisa Cano; Auth (Verified) Notes: (CT Head/Brain W/O Contrast) Reason For Exam: Trauma RESULT: CT Head/Brain W/O Contrast CT Head/Brain W/O Contrast INDICATION: Head trauma, on anticoagulation. TECHNIQUE: Noncontrast head CT using axial technique and reconstructed in axial and coronal planes.Iterative reconstruction techniques are used to optimize dose and image quality. 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 BRAIN AND EXTRA-AXIAL SPACES: No parenchymal hemorrhage, midline shift, or mass effect. Sierra-white matter differentiation is wellpreserved. No acute infarct. Mild prominence of the ventricles and sulci consistent with parenchymal volume loss. Mild low-density white matter changes. No subarachnoid hemorrhage. No subdural or epidural collection. CALVARIUM, SKULL BASE, AND SOFT TISSUES: No fractures or suspicious bony lesions. The paranasal sinuses and mastoid air cells are clear. Visualized orbits and globes are intact. The extracranial soft tissues are unremarkable. IMPRESSION: No acute intracranial pathology. vRad concur. WSN: [id number] Ordering Physician: Jono Puri Dictated By: Yogesh Garcia MD Dictated Date/Time: 08/13/22 8:07 am Reviewed By: Yogesh Garcia MD Signed By: Yogesh Garcia MD Signed Date/Time: 08/13/22 8:07 am Transcribed By: GLENNY Transcribed Date/Time: 08/13/22 8:05 am Vital Signs Most recent to oldest [Reference Range]: 1 2 Height 180 cm (08/12/22 9:31 PM) Weight 81.1 kg (08/12/22 9:31 PM) Oxygen Saturation [94-100 %] 96 % (08/12/22 9:31 PM) 96 % (08/12/22 9:30 PM) Pulse Rate [55-90 bpm] 84 bpm (08/12/22:31 PM) 84 bpm (08/12/22 9:30 PM) Blood Pressure [90-138/55-84 mm Hg] 217/ 93mm Hg *H* (08/12/22 9:31 PM) Respiratory Rate [16-30 br/min] 16 br/mi n (08/12/22:31 PM) 16 br/min (08/12/22 9:30 PM) Temperature [96.8-100.4 DegF] 97.2 DegF (08/12/22 9:31 PM) Mode of Delivery (Oxygen) Room air (08/12/22 9:31 PM) Room air (08/12/22 9:30 PM) Blood pressure sites Arm, left (08/12/22 9:31 PM) Temperature Route Temporal (08/12/22 9:31 PM) Dry Weight 81.1 kg (08/12/22 9:31 PM) Weight Obtained Via Standing scale (08/12/22 9:31 PM) Dry Weight Obtained Via Standing scale (08/12/22 9:31 PM) Social History Social History Type Response Smoking Status Former smoker, quit more than 30 days ago; Other: quit 2004; entered on: 07/19/21 Sex Note * Jaxson NIÑO, Jono Smith: PERFORM Event Display: Patient Education Leaflets Authored Date: [id number] Head Injury (Adult) ?? [id number] Head Injury (Adult) You have a head injury. It doesn't appear serious at this time. But symptoms of a more serious problem, such as a mild brain injury (concussion) or bruising or bleeding in the brain, may appear later. For this reason, you or someone caring for you will need to watch for the symptoms listed below. Once you???re home, also be sure to follow any care directions you???re given. Home care Watch??for the following symptoms Seek emergency medical care if you have any of these symptoms over the next hours to days:? Headache that gets worse or doesn't go away ??? Nausea or vomiting ??? Dizziness ??? Sensitivity to light or noise ??? Unusual sleepiness or grogginess ??? Trouble falling asleep ??? Personality changes ??? Vision changes ??? Memory loss ??? Confusion ??? Trouble walking or clumsiness ??? Loss of consciousness (even for a short time) ??? Inability to be awakened ??? Stiff neck ??? Weakness ornumbness in any part of the body ??? Seizures General care ??? If you were prescribed medicines for pain, use them as directed. Note: Don???t take other medicines for pain without talking to your healthcare provider first. ??? To help reduce swelling and pain, apply a cold source to the injured area for up to 20 minutes at a time. Do this as often??as directed. Use a cold pack or bag of ice wrapped in a thin towel. Never apply a cold source directly to the skin. ??? If you are on a blood thinner for a health condition and have a head injury, follow your healthcare provider's specific directions. You are at a higher risk for bleeding fromthe blood thinner, so your provider will talk to you about taking extra precautions. ??? If you have cuts or scrapes as a result of your head injury, care for them as directed. ??? For the next 24 hours??(or longer, if directed): o Don???t drink alcohol or use sedatives or other medicines that makeyou sleepy. o Don???t drive or operate machinery. o Don???t do anything strenuous, such as heavy lifting or straining. o Limit tasks that need concentration. This includes reading, using a smartphone or computer, watching TV, and playing video games. o Don???t return to sports or other activities that could result in another head injury until approved by your healthcare provider. ?? Follow-up care Follow up with your healthcare provider, or as directed.??If imaging tests were done, they will be reviewed by a healthcare provider. You will be told the results and any new findings that may affectyour care. ?? When to seek medical advice Call your healthcare provider right away if any of the following occur: ??? Pain doesn???t get better or gets worse ??? New or increased swelling or bruising ??? Increased redness,??warmth,??drainage, or bleeding from the injured area ??? Fluid drainage or bleeding from the nose or ears ??? Any depression or bony abnormality in the injured area ??? Persistent confusion or lethargy ??? Personalitychanges ??? Bruising behind the ears or bruising around the eyes ?? Last Reviewed Date: 2022 ?? [id number] [employer]. All rights reserved. This information is not intended as a substitute for professional medical care. Always follow your healthcare professional's instructions. ?? CT Head WO contrast * BHSPowerscribe , CIS S: TRANSCRIBE Yogesh Garcia MD: VERIFY Event Display: Result: Authored Date: [id number] CT Head/Brain W/O Contrast INDICATION: Head trauma, on anticoagulation. TECHNIQUE: Noncontrast head CT using axial technique and reconstructed in axial and coronal planes.Iterative reconstruction techniques are used to optimize dose and image quality. 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 BRAIN AND EXTRA-AXIAL SPACES: No parenchymal hemorrhage, midline shift, or mass effect. Sierra-white matter differentiation is wellpreserved. No acute infarct. Mild prominence of the ventricles and sulci consistent with parenchymal volume loss. Mild low-density white matter changes. No subarachnoid hemorrhage. No subdural or epidural collection. CALVARIUM, SKULL BASE, AND SOFT TISSUES: No fractures or suspicious bony lesions. The paranasal sinuses and mastoid air cells are clear. Visualized orbits and globes are intact. The extracranial soft tissues are unremarkable. IMPRESSION: No acute intracranial pathology. [facility]Rad concur. WSN: [id number] Ordering Physician: Jono Puri Dictated By: Yogesh Garcia MD Dictated Date/Time: 08/13/22 8:07 am Reviewed By: Yogesh Garcia MD Signed By: Yogesh Garcia MD Signed Date/Time: 08/13/22 8:07 am Transcribed By: GLENNY Transcribed Date/Time: 08/13/22 8:05 am Patient Care team information Care Team Personnel Name: Nelli Esquivel RN Position: [facility] RN Member Role: Primary Care Nurse Name: Bal Henderson MD Position: [facility] Cardiology MD Member Role: Lifetime Consulting Physician Address: Address: [address] [place] [address]- [place] Name: Paris Cartagena MD Position: [facility] Physician - Primary Care Member Role: PCP Address: Address: [address] [place] [address]- [place] Name: Daquan Sykes MD Position: [facility] Renal MD Member Role: Lifetime Consulting Physician Address: Address: [address] [facility] [address] [facility] [place] [address]- [place] Name: Lourdes Porter RN Position: [facility] RN Member Role: Primary Care Nurse Name: Zay Hernandes Position: [facility] RN Member Role: Primary Care Nurse Name: Laquita Franklin RN Position: [facility] RN Member Role: Primary Care Nurse Name: Jono Puri MD Position: [facility] ED Medicine MD Member Role: Admitting Physician Address: Address: [address] [place] [address] [place] [address]- [place] Name: Estelle Gibson RN Position: [facility] ED RN W/OE and Tasks Member Role: Patient Care Provider Care Team Related Persons Name: JESSICA SAAVEDRA Address: home [address] [place] [address]
--- OUTSIDE RECORDS SUMMARY | 2024-02-15 00:41 | XMS_ITS | Continuity of Care Document ---
Author Organization [facility] Address [address] [place] [address]- Care Team Providers Care Parakeet Raiser Name Role Phone Osiel NIÑO, Paris Primary Care Physician [phone] Encounter [facility] [place] Date(s): 12/15/21 - 01/18/22 [facility] [address] [place] [id number] Attending Physician: Martha Hernandez NP Admitting Physician: Martha Hernandez NP Referring Physician: Martha Hernandez NP Allergies, Adverse Reactions, Alerts Substance Reaction Severity [...] pneumococcal 23-valent vaccine 09/15/00 Recorded 1Result Comment: [facility] [id number] 2Result Comment: [id number] 3Result Comment: SCREENING CHECKLIST REVIEWED. [facility] [id number] 4Result Comment: Screening checklist reviewed. [facility] [id number] Medications acetaminophen 325 mg oral tablet = [...] Refills, Maintenance, 12/25/21 11:07:00 EDT, [facility], 177, cm, 12/08/21 8:38:00 EDT, Height, 83, kg, [...] 9:15:00 EDT, ER Tablet, [facility]HS[facility] 177, cm, 07/19/21 11:12:00 EDT, Height, 83, kg, 08/05/20 8:41:00 EDT, Dry Weight Start Date: 08/21/21 Status: Ordered Januvia 100 mg oral tablet 1 tablet = 100 mg, By Mouth, Daily, # 90 tablet, 1 Refills, Maintenance, 08/21/21 9:12:00 EDT, Tablet, [facility] 177, cm, 07/19/21 11:12:00 EDT, Height, 83, [...] Maintenance,12/08/21 9:13:00 EDT, Tablet, [facility] 177, cm, 12/08/21 8:38:00 EDT, Height, 83, kg, [...] Maintenance, 08/22/21 12:00:00 EDT, [facility] 177, cm, 07/19/21 11:12:00 EDT, Height, 83, [...] Other: quit 2004; entered on: 07/19/21 Sex Patient Care team information Personnel Name: Paris Cartagena MD Address: Address: [address] [place] [id number]
--- OUTSIDE RECORDS SUMMARY | 2024-02-15 00:41 | XMS_ITS | Continuity of Care Document ---
Author Organization [facility] Address [address] [place] [address], [address] [place] [address]- Care Team Providers Care Child Caregiver Name Role Phone Kat Stafford Primary Care Physician [phone] En[place] [facility] Date(s): 09/17/23 - 10/17/23 [facility] [address] [facility], [address] [place], [place] [address] Allergies, Adverse Reactions, Alerts Substance Reaction Severity Status baclofen Drowsiness Active polyethylene glycol 3350 Vomiting <not entered> Ac tive atorvastatin Muscle cramps Other Active Immunizations Given and Recorded Vaccine Date Status Refusal Reason influenza virus vaccine, inactivated 12/24/22 Vazquez rded influenza virus vaccine, inactivated 12/19/21 Vazquez rded influenza virus vaccine, inactivated 12/20/20 Vazquez rded influenza virus vaccine, inactivated 1 12/23/19 Gi ebttye influenza virus vaccine, inactivated 2 01/20/19 Gi bettye influenza virus vaccine, inactivated 3 01/20/19 Gi bettye influenza virus vaccine, inactivated 12/03/17 Vazquez rded influenza virus vaccine, inactivated 01/05/16 Vazquez rded [id number] bivalent booster vax 01/15/22 Recorded tetanus-diphtheria toxoids [...] pneumococcal 23-valent vaccine 09/15/00 Recorded 1Result Comment: [id number] 2Result Comment: SCREENING CHECKLIST REVIEWED. [facility] [id number] 3Result Comment: Screening checklist reviewed. [facility] [id number] 4Result Comment: [facility] [id number] Medications acetaminophen 325 mg oral tablet = 650 mg, By Mouth, Every 4 hours, Greater than 101 F or Mild Pain, 0 Refills, Maintenance, 08/09/14 14:49:05, Tablet Start Date: 08/09/14 Status: Ordered amLODIPine 2.5 mg oral tablet 2.5 mg, 1, tablet, By Mouth, Daily, # 90 tablet, Refills 1, Tot. Refills 1, Maintenance, 08/20/22 9:10:00 EDT, Route to Pharmacy Electronically, [facility], Partial fill upon patient request if the prescription is for a schedule II opioid Start Date: 08/20/22 Status: Ordered amLODIPine 5 mg oral tablet 5 mg, 1, tablet, By Mouth, Daily, # 90 tablet, Refills 1, Tot. Refills 1, Maintenance, 07/05/23 11:38:00 EDT, Route to Pharmacy Electronically, [facility] 1967, Partial fill upon patient request if [...] Refills, Maintenance, 06/24/23 10:09:00 EDT, [facility], 181, cm, 06/20/23 14:26:00 EDT, Height, 80.5, kg, 06/14/23 12:37:00 EDT, Dry Weight Start Date: 06/24/23 Status: Ordered ezetimibe 10 mg oral tablet 1 tablet, By Mouth, Daily, # 90 tablet, 3 Refills, Maintenance, 01/24/23 13:32:00 EST, [facility], 180, cm, 01/24/23 13:10:00 EST, Height, 81.1, [...] tablet, 0 Refills, Maintenance,06/20/23 14:55:00 EDT, Tablet, [facility], 181, cm, 06/20/23 14:26:00 EDT, Height, 80.5,kg, 06/14/23 12:37:00 EDT, Dry Weight Start Date: 06/20/23 Status: Ordered metFORMIN 1000 mg oral tablet 1 tablet, By Mouth, 2 times a day with meals, # 14 tablet, 0 Refills, Maintenance, 08/20/22 9:11:00EDT, [facility], 180, cm, 08/12/22 21:42:00 [...] Replace Required Details, Route to Pharmacy Electronically, [facility]... Start Date: 09/17/22 Status: Ordered Trulicity Pen [...] Team Personnel Name: Nelli Esquivel RN Position: [facility] RN Member Role: Primary Care Nurse Name: Bal Henderson MD Position: [facility] Cardiology MD Member Role: Lifetime Consulting Physician Address: Address: [address] [place] [address]- Name: Kat Stafford Position: [facility] Associate Professional Member Role: PCP Address: Address: [address] [facility] [place] [address]- [place] Name: Daquan Sykes MD Position: [facility] Renal MD Member Role: Lifetime Consulting Physician Address: Address: [address] [facility] [address] [facility], [place] [address]- [place] Name: Lourdes Porter RN Position: S RN Member Role: Primary Care Nurse Name: Zay Hernandes Position: S RN Member Role: Primary Care Nurse Name: Laquita Franklin RN Position: [facility] RN Member Role: Primary Care Nurse Care Team Related Persons Name: JESSICA SAAVEDRA Address: home [address] [place] [id number]
--- OUTSIDE RECORDS SUMMARY | 2024-02-15 00:41 | XMS_ITS | Continuity of Care Document ---
Author Organization [facility] Address [address] [place] [address]- Care Team Providers Care Shank Carrier Name Role Phone Paris Cartagena MD Primary Care Physician [phone] [place] [facility] 05/11/21 - 05/18/21 [facility] [address] [place] [address] Attending Physician: Martha Hernandez NP Admitting Physician: Martha Hernandez NP Referring Physician: Paris Cartagena MD Allergies, Adverse Reactions, Alerts Substance Reaction Severity Status baclofen Drowsiness Active polyethylene glycol 3350 Vomiting <not entered> Ac tive atorvastatin Muscle cramps Other Active Immunizations Given and Recorded Vaccine Date Status Refusal Reason SARS-CoV-2 (COVID-19) mRNA-1273 vaccine 01/12/21 R ecorded [...] pneumococcal 23-valent vaccine 09/15/00 Recorded 1Result Comment: [id number] 2Result Comment: SCREENING CHECKLIST REVIEWED. [facility] [id number] 3Result Comment: Screening checklist reviewed. [facility] [id number] Medications acetaminophen 325 mg oral tablet = 650 mg, By Mouth, Every 4 hours, Greater than 101 F or Mild Pain, 0 Refills, Maintenance, 08/09/14 14:49:05, Tablet Start Date: 08/09/14 Status: Ordered amLODIPine 2.5 mg oral tablet 1 tablet, By Mouth, Daily, # 90 tablet, 2 Refills, Maintenance, 02/13/21 10:31:00 EST, [facility] 177, cm, 01/17/21 10:22:00 EDT, Height, 83, [...] Date: 09/24/14 Stop Date: 10/24/14 Status: Ordered cinacalcet 30 mg oral tablet 1 tablet = 30 mg, By Mouth, Daily, # 30 tablet, 0 Refills, Maintenance, 03/24/21 8:54:00 EST, Tablet, Partial fill upon patient request if the prescription is for a schedule II opioid drug. Start Date: 03/24/21 Status: Ordered Colace sodium 100 mg oral capsule 200 mg, 2, capsule, By Mouth, Daily, Refills 0, Maintenance, 11/08/19 18:19:00 EDT Start Date: 11/08/19 Status: Ordered ezetimibe 10 mg oral tablet 1 tablet, By Mouth, Daily, # 90 tablet, 1 Refills, Maintenance, 02/13/21 9:02:00 EST, [facility] 177, cm, 01/17/21 10:22:00 EDT, Height, 83, kg, 08/05/20 8:41:00 EDT, Dry Weight Start Date: 02/13/21 Status: Ordered Farxiga 10 mg oral tablet [...] meals, # 180 tablet, 1 Refills, Maintenance, 02/13/21 9:02:00 EST, ER Tablet, [facility], cm, 01/17/21 10:22:00 EDT, Height, 83, kg, 08/05/20 8:41:00 EDT, Dry Weight Start Date: 02/13/21 Status: Ordered hydrochlorothiazide 25 mg oral tablet 1, tablet, By Mouth, Daily, # 90 tablet, Refills 1, Tot. Refills 1, Maintenance, 02/13/21 9:01:00 EST, Route to Pharmacy Electronically, [facility], cm, 01/17/21 10:22:00 EDT, Height, 83, kg, 08/05/20 8:41:00 EDT, Dry Weight Start Date: 02/13/21 Status: Ordered ibuprofen 800 mg oral tablet See Instructions, 1 tablet By Mouth 2- 3 times a day with food, # 30 tablet, Refills 0, Tot. Refills 0, Maintenance, 11/19/18 11:13:25 EDT, Instructions Replace Required Details, Route to Pharmacy Electronically, [id number],... Start Date: 11/19/18 Status: Ordered Januvia 100 mg oral tablet 1 tablet = 100 mg, By Mouth, Daily, # 90 tablet, 1 Refills, Maintenance, 02/13/21 9:04:00 EST, Tablet, [facility], cm, 01/17/21 10:22:00 EDT, Height, 83, kg, 08/05/20 8:41:00 EDT, Dry Weight Start Date: 02/13/21 Status: Ordered Lidoderm 5% film 1 patch, [...] for anxiety, # 30 tablet, 0 Refills, Maintenance,11/29/20 20:34:00 EDT, Tablet, [facility], 177, cm, 10/17/20 14:18:00 EDT, Height, 83, kg, 08/05/20 8:41:00 EDT, Dry Weight Start Date: 11/29/20 Status: Ordered metFORMIN 1000 mg oral tablet 1 tablet, By Mouth, 2 times a day with meals, # 180 tablet, 1 Refills, Maintenance, 02/13/21 9:03:00 EST, [facility], 177, cm, 01/17/21 10:22:00 EDT, Height, 83, kg, 08/05/20 8:41:00 EDT, Dry Weight Start Date: 02/13/21 Status: Ordered pantoprazole 40 mg oral delayed [...] Mouth, Daily at bedtime, # 90 tablet, 0 Refills, Maintenance, 02/13/21 10:32:00 EST, [facility], 177, cm, 01/17/21 10:22:00 EDT, Height, 83, kg, 08/05/20 8:41:00 EDT, Dry Weight Start Date: 02/13/21 Status: Ordered Vitamin B12 500 mcg oral tablet 2 tablet = 1,000 mcg, By Mouth, Daily, # 30 tablet, 0 Refills, Maintenance, 03/24/21 8:55:00 EST, Tablet, Partial fill upon patient request if the prescription is for a schedule II opioid drug. Start Date: 03/24/21 Status: Ordered Xarelto 2.5 mg oral tablet [...] recent to oldest [Reference Range]: 1 Height 177 cm (05/11/21 1:28 PM) Weight 83.1 kg (05/11/21 1:28 PM) Oxygen Saturation [94-100 %] 96 % (05/11/21 1:28 PM) Pulse Rate [55-90 bpm] 78 bpm (05/11/21 1:28 PM) Body Mass Index [18.5-24.99] 26.52 *H* (05/11/21 1:28 PM) Blood Pressure [90-138/55-84 mm Hg] 150/ 70mm Hg *H* (05/11/21 1:28 PM) Mode of Delivery (Oxygen) Room air (05/11/21 1:28 PM) Blood pressure sites Arm, left (05/11/21 1:28 PM) Weight Obtained Via Patient/family state d (05/11/21 1:28 PM) Social History Social History Type Response Smoking Status Former smoker entered on: 01/18/15 Sex
--- OUTSIDE RECORDS SUMMARY | 2024-02-15 00:41 | XMS_ITS | Continuity of Care Document ---
Author Organization [facility] Address [address] [place] [address]- Care Team Providers Care Travel Manager Name Role Phone Kat Stafford Primary Care Physician Encounter [facility] Date(s): 09/30/23 - 09/30/[address] [address]- Discharge Disposition: A-D/C Home Attending Physician: Aroldo Riojas DO Admitting Physician: Aroldo Riojas DO Referring Physician: Not on Staff, Referring [...] influenza virus vaccine, inactivated 01/05/16 Vazquez rded [id number] bivalent booster vax 01/15/22 Recorded tetanus-diphtheria toxoids [...] pneumococcal 23-valent vaccine 09/15/00 Recorded 1Result Comment: [id number] 2Result Comment: SCREENING CHECKLIST REVIEWED. [facility] [id number] 3Result Comment: Screening checklist reviewed. [facility] [id number] 4Result Comment: [facility] [id number] Medications acetaminophen 325 mg oral tablet = 650 mg, By Mouth, Every 4 hours, Greater than 101 F or Mild Pain, 0 Refills, Maintenance, 08/09/14 14:49:05, Tablet Start Date: 08/09/14 Status: Ordered amLODIPine 2.5 mg oral tablet 2.5 mg, 1, tablet, By Mouth, Daily, # 90 tablet, Refills 1, Tot. Refills 1, Maintenance, 08/20/22 9:10:00 EDT, Route to Pharmacy Electronically, [facility], Partial fill upon patient request if the prescription is for a schedule II opioid Start Date: 08/20/22 Status: Ordered amLODIPine 5 mg oral tablet 5 mg, 1, tablet, By Mouth, Daily, # 90 tablet, Refills 1, Tot. Refills 1, Maintenance, 07/05/23 11:38:00 EDT, Route to Pharmacy Electronically, [facility], Partial fill upon patient request [...] tablet, 0 Refills, Maintenance,06/20/23 14:55:00 EDT, Tablet, [facility], 181, cm, 06/20/23 14:26:00 EDT, Height, 80.5,kg, 06/14/23 12:37:00 EDT, Dry Weight Start Date: 06/20/23 Status: Ordered metFORMIN 1000 mg oral tablet 1 tablet, By Mouth, 2 times a day with meals, # 14 tablet, 0 Refills, Maintenance, 08/20/22 9:11:00EDT, [facility], 180, cm, 08/12/22 [...] Replace Required Details, Route to Pharmacy Electronically, [facility]... Start Date: 09/17/22 Status: Ordered Trulicity Pen [...] Exam Date Time Procedure Performing Provider Status 09/30/23 7:[address] Abd/Pelvis W/ IV Contrast Only Juany Duffy; Auth (Verified) Notes: (CT Abd/Pelvis W/ IV Contrast Only) Reason For Exam: Pain RESULT: CT Abd/Pelvis W/ IV Contrast Only CT Abd/Pelvis W/ IV Contrast Only Hx of Present Illness: RUQ pain x3 weeks. Denies any other symptoms.; Reason: Pain; Clinical Question(s): Pancreatitis TECHNIQUE: Spiral CT through the abdomen and pelvis with IV contrast formatted in 3 planes. 100 cc of Omnipaque 300 was administered intravenously. This study was performed without oral contrast. Weight-based protocol using automatic tube modulation was used to optimize exposure parameters. CTDIvol Body: 15.53 mGy, DLP Body: 747 mGy*cm. COMPARISON: None. 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 Visualized Chest: Lung bases are clear. No pleural effusion. The heart is normal in size. No pericardial effusion. Diaphragm: Normal. Liver: Normal. Gallbladder: No CT evidence of gallbladder pathology. Bile ducts: No biliary ductal dilation. Spleen: Normal. Pancreas: Normal. Adrenal glands: Normal. Kidneys and ureters: No hydronephrosis, stones, or suspicious masses. Vascular calcifications are noted. Subcentimeter hypodensities in both kidneys likely representing tiny cysts. Bladder: Normal. Reproductive organs: There is a pessary. No adnexal mass or suspicious. Atrophic uterus. Stomach, small bowel, and large bowel: Evaluation is limited without enteric contrast. There is no evidence for bowel obstruction. There is mild wall thickening within the stomach and several left mid abdominal jejunal and ileal small bowel loops which could be due to gastroenteritis. No findings of acute diverticulitis or colitis. Appendix: Normal. Peritoneum and retroperitoneum: No ascites or pneumoperitoneum. No omental or mesenteric lesions. Lymph nodes: No enlarged lymph nodes. Blood vessels: Moderate atherosclerotic vascular calcification. No aortic aneurysm. No evidence of venous thrombosis. Abdominal and pelvic wall: Unremarkable. Bones: No acute abnormality. IMPRESSION: Mild gastric and left mid abdominal small bowel wall thickening. Gastroenteritis cannot be excluded. WSN: [id number] Ordering Physician: Aroldo Riojas Dictated By: Mir Escalante MD Dictated Date/Time: 09/30/23 8:10 pm Reviewed By: Mir Escalante MD Signed By: Mir Escalante MD Signed Date/Time: 09/30/23 8:10 pm Transcribed By: GELNNY Transcribed Date/Time: 09/30/23 8:04 pm Vital Signs Most recent to oldest [Reference Range]: 1 2 3 Height 183 cm (09/30/23 8:59 PM) 183 cm (09/30/23 6:49 PM) 183 cm (09/30/23 3:05 PM) Weight 81.1 kg (09/30/23 3:05 PM) Oxygen Saturation [94-100 %] 93 % *L* (09/30/23 8:59 PM) 98 % (09/30/23 6:49 PM) 98 % (09/30/23 3:05 PM) Pulse Rate [55-90 bpm] 67 bpm (09/30/23 8:59 PM) 62 bpm (09/30/23 6:49 PM) 71 bpm (09/30/23 3:05 PM) Blood Pressure [90-138/55-84 mm Hg] 198/74mm Hg *H* (09/30/23 8:59 PM) 178/76mm Hg *H* (09/30/23 6:49 PM) 185/80mm Hg *H* (09/30/23 3:05 PM) Respiratory Rate [16-30 br/min] 16 br/min (09/30/23 6:49 PM) 18 br/min (09/30/23 3:05 PM) Temperature [96.8-100.4 DegF] 98.1 DegF (09/30/23 8:59 PM) 97.0 DegF (09/30/23 3:05 PM) Mode of Delivery (Oxygen) Room air (09/30/23 8:59 PM) Room air (09/30/23 6:49 PM) Room air (09/30/23 3:05 PM) Blood pressure sites Arm, left (09/30/23 8:59 PM) Arm, left (09/30/23 6:49 PM) Arm, left (09/30/23 3:05 PM) Temperature Route Oral (09/30/23 8:59 PM) Oral (09/30/23 3:05 PM) Dry Weight 81.1 kg (09/30/23 3:05 PM) Weight Obtained Via Standing scale (09/30/23 3:05 PM) Social History Social History Type Response Smoking Status Former smoker, quit more than 30 days ago; Other: quit 2004; Started at age: 16; entered on: 10/26/22 Sex EKG study * Event Display: ECG 12-Lead Authored Date: Please click on pdf link to open report * Event Display: ECG 12-Lead Authored Date: Ventricular Rate: 62 BPM Atrial Rate: 62 BPM P-R Interval: 134 ms QRS Duration: 96 ms Q-T Interval: 406 ms QTC Calculation(Bazett): 412 ms P [place]: 65 degrees R [place]: 44 degrees T [place]: 80 degrees Normal sinus rhythm Poor R wave progression in V1-V3 may be normal variant or due to anteroseptal infarct or misplaced leads Abnormal ECG Confirmed by LORENE FLOWERS MD ([id number]) on 09/30/2023 9:12:44 PM [place]: LORENE FLOWERS MD Note * Aroldo Riojas DO: PERFORM Event Display: Patient Education Leaflets Authored Date: Unknown Causes of Abdominal Pain(Adult) ?? [id number] Unknown Causes of Abdominal Pain(Adult) The exact cause of your belly (abdominal) [...] to watch for any new symptoms, problems,??or worsening of your condition. Over the next few days, the abdominal [...] relieve pain. ??? Something warm on your belly such as a heating pad may help, but be careful not to [...] Don???t have??whole-grain foods, whole fruits and vegetables,meats, seeds and nuts, fried or fatty foods, dairy, alcohol and spicy foods until your symptoms go away. ?? Follow-up care Follow up with your healthcare provider, or as advised, if your pain does not begin to improve in the next 24 hours. ?? Call 911 Call?? 911 if any of these occur: ??? Trouble breathing ??? Confusion ??? Fainting or loss of consciousness ??? Rapid heart rate ??? Seizure ?? When to seek medical advice Call your healthcare provider right away if any of these occur: ??? Pain gets worse or moves to theright lower abdomen ??? New or worsening vomiting or diarrhea ??? Swelling of the abdomen ??? Unable to pass stool for more than??3 days ??? Fever of 100.4??F (38??C) or higher, or as directed by your healthcare provider ??? Blood in vomit or bowel movements (dark red or black color) ??? Yellow color of eyes and skin (jaundice) ??? Weakness, dizziness ??? Chest, arm, back, neck, or jaw pain ??? Can't keep down medicines, liquids, or water because of too much vomiting ??? If you have a vagina: unexpected vaginal bleeding or missed period ?? Last Reviewed Date: 2021 ?? [id number] [employer]. All rights reserved. This information is not intended as a substitute for professional medical care. Always follow your healthcare professional's instructions. ?? Patient Care team information Care Team Personnel Name: Nelli Esquivel RN Position: S RN Member Role: Primary Care Nurse Name: Bal Henderson MD Position: [facility] Cardiology MD Member Role: Lifetime Consulting Physician Address: Address: [address] [place] [address] Name: Kat Stafford Position: [facility] Associate Professional Member Role: PCP Address: Address: [address] [facility] [place] [address]- [place] Name: Daquan Sykes MD Position: [facility] Renal MD Member Role: Lifetime Consulting Physician Address: Address: [address] [facility] [address] [facility] [address] [facility] [place] [address]- [place] Name: Lourdes Porter RN Position: [facility] RN Member Role: Primary Care Nurse Name: Zay Hernandes Position: [facility] RN Member Role: Primary Care Nurse Name: Laquita Franklin RN Position: [facility] RN Member Role: Primary Care Nurse Care Team Related Persons Name: JESSICA SAAVEDRA Address: home [address] [place] [address]
--- OUTSIDE RECORDS SUMMARY | 2024-02-15 00:42 | XMS_ITS | Continuity of Care Document ---
Author Organization [facility] Address [address] [place] [address]- Care Team Providers Care Club Licensee Name Role Phone Osiel NIÑO, Paris Primary Care Physician [facility] Date(s): 05/11/20 - 06/10/20 [facility] [address] [place] [id number] Attending Physician: Samantha Carrion Admitting Physician: AdmtrSamantha Referring Physician: Admtr, Ar8 Allergies, Adverse Reactions, Alerts Substance Reaction Severity [...] pneumococcal 23-valent vaccine 09/15/00 Recorded 1Result Comment: [id number] 2Result Comment: SCREENING CHECKLIST REVIEWED. [facility] [id number] 3Result Comment: Screening checklist reviewed. [facility] [id number] Medications acetaminophen 325 mg oral tablet = 650 mg, By Mouth, Every 4 hours, Greater than 101 F or Mild Pain, 0 Refills, Maintenance, 08/09/14 14:49:05, Tablet Start Date: 08/09/14 Status: Ordered amLODIPine 2.5 mg oral tablet 1 tablet, By Mouth, Daily, # 90 tablet, 1 Refills, Maintenance, 03/16/21 19:16:00 EDT, [facility], 178, cm, 03/31/20 10:25:00 EST, Height, 83, kg, 11/16/18 13:47:00 EDT, Dry Weight Start Date: 05/31/20 Status: Ordered Aspirin Tablet 81 mg, By [...] BLOOD SUGAR 3-4 TIMES A DAY,[facility] Start Date: 07/01/18 Status: Ordered Emergen-C 0 Refills, Maintenance, 11/08/19 18:19:00 EDT Start Date: 11/08/19 Status: Ordered ezetimibe 10 mg oral tablet 1 tablet, By Mouth, Daily, # 90 tablet, 0 Refills, Maintenance, 05/31/20 19:14:00 EDT, [facility]A, 178, cm, 03/31/20 10:25:00 EST, Height, 83, kg, 11/16/18 13:47:00 EDT, Dry Weight Start Date: 05/31/20 Status: Ordered glipiZIDE 5 mg oral tablet, extended release 1 tablet = 5 mg, By Mouth, 2 times a day, before meals, # 180 tablet, 1 Refills, Maintenance, 02/12/20 10:49:00 EST, ER Tablet, [facility] Rico CONNOLLY, cm, 01/27/20 10:40:00 EST, Height, 83, kg, 11/16/18 13:47:00 EDT, Dry Weight Start Date: 02/12/20 Status: Ordered hydrochlorothiazide 25 mg oral tablet 1, tablet, By Mouth, Daily, # 90 tablet, Refills 0, Tot. Refills 0, Maintenance, 03/31/20 14:36:00 EST, Route to Pharmacy Electronically, [facility] GROVES, cm, 03/31/20 10:25:00 EST, Height,83, kg, 11/16/18 13:47:00 EDT, Dry Weight Start Date: 03/31/20 Status: Ordered ibuprofen 800 mg oral tablet See Instructions, 1 tablet By Mouth 2- 3 times a day with food, # 30 tablet, Refills 0, Tot. Refills 0, Maintenance, 11/19/18 11:13:25 EDT, Instructions Replace Required Details, Route to Pharmacy Electronically, [id number],... Start Date: 11/19/18 Status: Ordered Januvia 100 mg oral tablet 1 tablet = 100 mg, By Mouth, Daily, # 90 tablet, 0 Refills, Maintenance, 03/31/20 14:37:00 EST, Tablet, [facility] GROVES, cm, 03/31/20 10:25:00 EST, Height, 83, kg, [...] tablet, 0 Refills, Maintenance,01/28/20 19:08:00 EST, Tablet, [facility] 1967, 178, cm, 01/27/20 10:40:00 EST, Height, 83, kg, 11/16/18 13:47:00 EDT, Dry Weight Start Date: 01/28/20 Status: Ordered METFORMIN HCL 1,000 MG TAB METFORMIN HCL 1,000 MG TAB, 1, tablet, By Mouth, 2 times a day with meals, # 180 tablet, 0 Refills,Maintenance, 05/31/20 19:16:00 EDT, 178, cm, 03/31/20 10:25:00 EST, Height, 83, kg, 11/16/18 13:47:00 EDT, Dry Weight Start Date: 05/31/20 Status: Ordered metFORMIN 1000 mg oral tablet 1 tablet, By Mouth, 2 times a day with meals, # 180 tablet, 0 Refills, Maintenance, 03/31/20 14:36:00 EST, [facility] MOHSEN, 178, cm, 03/31/20 10:25:00 EST, Height, 83, [...] Refills, Maintenance, 03/31/20 14:38:00 EST, [facility] MOHSEN, 178, cm, 03/31/20 10:25:00 EST, Height, 83, kg, 11/16/18 13:47:00 EDT, Dry Weight Start Date: 03/31/20 Status: Ordered Problem List Condition Effective Dates [...]
--- OUTSIDE RECORDS SUMMARY | 2024-02-15 00:42 | XMS_ITS | Continuity of Care Document ---
Author Organization [facility] Address [address] [place] [address]- Care Team Providers Care Staff Command And Control Officer Name Role Phone Osiel NIÑO, Paris Primary Care Physician [phone] [facility] Date(s): 01/17/22 - 01/24/22 [facility] [address] [place] [address] Attending Physician: Martha Hernandez NP Admitting Physician: David NEWSOME, Martha Rose Allergies, Adverse Reactions, Alerts Substance Reaction Severity [...] influenza virus vaccine, inactivated 4 01/20/19 Gi betyte influenza virus vaccine, inactivated 12/03/17 Vazquez rded [...] pneumococcal 23-valent vaccine 09/15/00 Recorded 1Result Comment: [facility] [id number] 2Result Comment: [id number] 3Result Comment: SCREENING CHECKLIST REVIEWED. [facility] 20526-063-83 4Result Comment: Screening checklist reviewed. [facility] 09518-315-08 Medications acetaminophen 325 mg oral tablet = [...] oldest [Reference Range]: 1 Height 177 cm (01/17/22 8:58 AM) Weight 81.65 kg (01/17/22 8:58 AM) Oxygen Saturation [94-100 %] 97 % (01/17/22 8:58 AM) Pulse Rate [55-90 bpm] 73 bpm (01/17/22 8:58 AM) Body Mass Index [18.5-24.99 kg/m2] 26.06 kg/m2 *H* (01/17/22 8:58 AM) Blood Pressure [90-138/55-84 mm Hg] 148/ 70mm Hg *H* (01/17/22 8:58 AM) Mode of Delivery (Oxygen) Room air (01/17/22 8:58 AM) Blood pressure sites Arm, left (01/17/22 8:58 AM) Dry Weight 81.65 kg (01/17/22 8:58 AM) Weight Obtained Via Patient/family state d (01/17/22 8:58 AM) Dry Weight Obtained Via Patient/family s tated (01/17/22 8:58 AM) Social History Social History Type Response Smoking Status Former smoker, quit more than 30 days ago; Other: quit 2004; entered on: 07/19/21 Sex Note * Mayo Jarrett: PERFORM, SIGN, VERIFY Event Display: Patient Education/Instruction Authored Date: [id number] [facility] *[facility] [address] Clinical Summary Name GARRY SAAVEDRA Age 66 Years 1955 PCP Osiel NIÑO, Paris PCP Visit Date 01/17/2022 08:45:00 Additional Instructions: Scheduled Appointments?? Future Appointments ?[facility] ?[address]??[place],??[place],??[address] ?Phone:??[phone]?Fax:??-- ?Appt. Date:??02/19/2022?7:15 AM ?Scheduled Provider:??[facility] 3D Mammo Rm 4 ?*WF??[facility] ?[address] ?[address] ?[place],??[place],??[address] ?Phone:??--?Fax:??-- ?Appt. Date:??04/03/2022?10:45 AM ?Scheduled Provider:??Shahnaz Faria Follow-Up Instructions ?? Diagnosis Medications: Please continue your medications until treatment [...] tablet) 1 tab(s) Oral Daily. Next Dose: Aspirin (Aspirin Tablet) 81 Milligram [...] oral tablet) 1 tab(s) Oral Daily. Refills: 0. Next Dose: GlipiZIDE (glipiZIDE 5 mg oral tablet, extended release) 1 tab(s) Oral twice a day. before meals. Refills: 1. Next Dose: Lisinopril (lisinopril 40 mg oral tablet) 1 tab(s) Oral Daily. Next Dose: Lorazepam (LORazepam 0.5 mg oral tablet) 1 tab(s) Oral Daily as needed as needed for anxiety. Refills: 0. Next Dose: Metformin (metFORMIN 1000 mg oral tablet) 1 tab(s) Oral two times a day with meals. Refills: 1. Next Dose: Pantoprazole (pantoprazole 40 mg oral delayed release tablet) 1 tab(s) Oral Daily. Refills: 3. Next Dose: Pravastatin (pravastatin 80 mg oral tablet) 1 tab(s) Oral Daily at Bedtime. Refills: 2. Next Dose: rivaroxaban (Xarelto 2.5 mg oral tablet) 1 tab(s) Oral twice a day. Next Dose: sitagliptin (Januvia 100 mg oral tablet) 1 tab(s) Oral Daily. Refills: 1. Next Dose: Allergy Info:?? polyethylene glycol 3350; atorvastatin; baclofen Medications Given This Visit Future Orders ?No future orders Vital Signs Height 177 cm Weight 81.65 kg BMI 26.06 kg/m2 Blood Pressure 148 mm Hg/70 mm Hg Temperature Pulse Rate 73 bpm Respiratory Rate 02 Sat Mode of Delivery 97 %/Room air You can now view a summary of your hospital visit from the comfort of your home through a free online portal called [employer]. [employer] is a website that allows you to securely view your medical information including discharge summary, medications and follow-up visits. ??You can alsosend a secure electronic message to your doctor???s office to request appointments, renew medications or just ask a question. You can enroll at [email or web address] or register during your next office visit. [...] primary care provider, you may find a [facility] provider by calling [facility] Link at [phone]. For information about the plan of care [...] Member Role: Lifetime Consulting Physician Address: Address: [address] [place] [address]- [place] Name: [place] Cartagena MD Position: [facility] Primary Care Physician Member Role: PCP Address: Address: [address] [place] [address]- [place] Name: Daquan Sykes MD Position: [facility] Renal MD Member Role: Lifetime Consulting Physician Address: Address: [address] [place] [address] [address] [facility] [place] [address]- Name: Lourdes Porter RN Position: S RN Member Role: Primary Care Nurse Name: Zay Hernandes Position: S RN Member Role: Primary Care Nurse Name: Laquita Franklin RN Position: S RN Member Role: Primary Care Nurse Care Team Related Persons Name: JESSICA SAAVEDRA Address: home [address] [place] [address]
--- OUTSIDE RECORDS SUMMARY | 2024-02-15 00:42 | XMS_ITS | Continuity of Care Document ---
Author Organization [facility] Address [address] [place] [address]- Care Team Providers Care Sewing Line Baler Name Role Phone Dana Arriaga Primary Care Physician [facility] Date[place]s): 01/17/24 - 01/24/24 [facility] [address] [place] [address]- Encounter Diagnosis Atherosclerotic PVD with intermittent claudication(Discharge Diagnosis) - 01/17/24 Attending Physician: Eduardo NEWSOME, Kimberly Arredondo Admitting Physician: Eduardo NEWSOME, Kimberly Arredondo Referring Physician: Dana Arriaga Allergies, Adverse Reactions, Alerts Substance Reaction Severity Status baclofen Drowsiness Active polyethylene glycol 3350 Vomiting Res olved atorvastatin Muscle cramps Other Active Immunizations Given [...] influenza virus vaccine, inactivated 01/05/16 Vazquez rded [id number] bivalent booster vax 01/15/22 Recorded tetanus-diphtheria toxoids [...] pneumococcal 23-valent vaccine 09/15/00 Recorded 1Result Comment: [id number] 2Result Comment: SCREENING CHECKLIST REVIEWED. [facility] [id number] 3Result Comment: Screening checklist reviewed. [facility] 98426-644-56 4Result Comment: [facility] 94910-649-62 Medications acetaminophen 325 mg oral tablet = 650 mg, By Mouth, Every 4 hours, Greater than 101 F or Mild Pain, 0 Refills, Maintenance, 08/09/14 14:49:05, Tablet Start Date: 08/09/14 Status: Ordered amLODIPine 2.5 mg oral tablet 2.5 mg, 1, tablet, By Mouth, Daily, # 90 tablet, Refills 1, Tot. Refills 1, Maintenance, 08/20/22 9:10:00 EDT, Route to Pharmacy Electronically, [facility], Partial fill upon patient request if [...] EDT, Route to Pharmacy Electronically, [facility] 1966, Partial fill upon patient request if [...] 13:33:00 EST, ER Tablet, [facility], Partial fill upon patient request if [...] 02/17/24 21:10:00 EST, 01/18/24 21:10:00 EDT, Film, [facility] 1966, Partial fill upon patient request if the prescription is for a sche... Start Date: 01/18/24 Stop Date: 02/17/24 Status: Ordered LORazepam 0.5 mg oral tablet 1 tablet = 0.5 mg, By Mouth, Daily, PRN as needed for anxiety, # 30 tablet, 0 Refills, Maintenance,06/20/23 14:55:00 EDT, Tablet, [facility] 1967, 181, cm, 06/20/23 14:26:00 EDT, Height, 80.5,kg, 06/14/23 12:37:00 EDT, Dry Weight Start Date: 06/20/23 Status: Ordered metFORMIN 1000 mg oral tablet 1 tablet, By Mouth, 2 times a day with meals, # 14 tablet, 0 Refills, Maintenance, 08/20/22 9:11:00EDT, [facility] 1967, 180, cm, 08/12/22 21:42:00 [...] Replace Required Details, Route to Pharmacy Electronically, [facility]... Start Date: 09/17/22 Status: Ordered Vitamin B12 [...] Atherosclerotic PVD with intermittent claudication Discharge Diagnosis 01/17/24 Vital Signs Most recent to oldest [Reference Range]: 1 Height 183 cm (01/17/24 10:28 AM) Weight 79 kg (01/17/24 10:28 AM) Oxygen Saturation [94-100 %] 80 % *L* (01/17/24 10:28 AM) Body Mass Index [18.5-24.99 kg/m2] 23.59 kg/m2 (01/17/24 10:28 AM) Blood Pressure [90-138/55-84 mm Hg] 158/ 90mm Hg *H* (01/17/24 10:28 AM) Mode of Delivery (Oxygen) Room air (01/17/24 10:28 AM) Blood pressure sites Arm, right (01/17/24 10:28 AM) Social History Social History Type Response Smoking Status Former smoker, quit more than 30 days ago; Other: quit 2004; Started at age: 16; entered on: 10/26/22 Sex Note * Mayo Jarrett: PERFORM Event Display: Patient Education/Instruction Authored Date: [id number] Ambulatory Adult Visit Summary [facility] [address] [place] [address] [address] Name: GARRY SAAVEDRA : 1955?? Visit: 01/17/2024 10:21?? Ambulatory Visit Instructions ?? Your Care Team Primary Care Provider Dana Arriaga? This Visit Provider Kimberly Clark NP Your Diagnosis Atherosclerotic PVD with intermittent claudication Vitals Signs Systolic Blood Pressure:??158 mm Hg??High Height: 183 cm Diastolic Blood Pressure:??90 mm Hg??High Weight: 79 kg Oxygen Saturation:??80 %??Low Body Mass Index: 23.59 kg/m2 ?? Body surface area: 2 What to do next Scheduled Follow-Up Appointments Saturday 10:40 AM EST ?? With: Linwood NIÑO, Gasper Adams Where: [facility] [address] [place] [address]- Status: Pending Saturday 1:00 PM EST ?? Where: [facility] [address] [address]- Status: Pending 2023 10:15 AM EST ?? With: Martha Hernandez NP Where: [facility] [address] [address]- Status: Pending Medications The list below reflects [...] Unchanged Amlodipine (amLODIPine 5 mg oral tablet) 180 each, 0 Refill(s), TAKE 2 TABLETS BY MOUTH ONCE DAILY ?? Unchanged Amlodipine (amLODIPine 5 mg oral tablet) 1 tab(s) Oral Daily Unchanged Amoxicillin (amoxicillin 500 mg oral capsule) 15 each, 0 Refill(s), TAKE 1 CAPSULE BY MOUTH EVERY 8 HOURS FOR 5 DAYS ?? Unchanged Aspirin (Aspirin Tablet) 81 Milligram Oral Daily in the morning Unchanged Carvedilol (carvedilol 25 mg oral tablet) 1 tab(s) Oral Twice a day Duration: 30 Days Unchanged Cholecalciferol (D3) Oral Daily Unchanged Cyanocobalamin (Vitamin B12 1000 mcg oral tablet) 1 tab(s) Oral Daily Unchanged dapagliflozin (Farxiga 10 mg oral tablet) 1 tab(s) Oral Daily Unchanged Dexamethasone / Tobramycin Ophthalmic (TobraDex ST 0.3%-0.05% ophthalmic suspension) 5 mL, 0 Refill(s), INSTILL 1 DROPS INTO EACH EYE 4 TIMES DAILY ?? Unchanged dulaglutide (Trulicity Pen) Subcutaneous Infusion Unchanged [...] Two times a day with meals Unchanged Miscellaneous Rx 2 each, 0 Refill(s), USE DIRECTED ?? Unchanged Pantoprazole (pantoprazole 40 mg oral [...] are strongly encouraged to quit. Please call [facility] Link at [phone] or [phone] ([phone]) or log in to [email or web address] for referrals to smoking cessation programs. ?? The National Suicide Prevention Hotline is available 08/10 if you or someone you know needs to find a reason to keep living. By calling 2-472-668-jyig (5551) you'll be connected to a skilled, trained counselor at a crisis center in your area. [facility] Health Portal You can view and manage your care through the patient portal or by using a health care sherry of your choosing. [employer] is a website that allows you to securely view your medical information including your hospital discharge summary, office visit summaries, medications and follow-up visits. You can also request appointments, renew medications, and request access to your medical information using a health care sherry of your choosing, or just ask a question. You can enroll at [email or web address] or register during your next office visit. [facility], in keeping with [facility] guidance, no longer requires face masks for [...] primary care provider, you may find a [facility] provider by calling [facility] Link at [phone]. Patient Care team information Care Team Personnel Name: Nelli Esquivel RN Position: S RN Member Role: Primary Care Nurse Name: Gasper Palumbo MD Position: [facility] ENGLISH TEACHER MD Member Role: Lifetime ENGLISH TEACHER Physician Address: Address: [address] [place] [address] [facility] [address]- [place] Name: Bal Henderson MD Position: [facility] Cardiology MD Member Role: Lifetime Consulting Physician Address: Address: [address] [place] [address]- [place] Name: Dana Arriaga Position: Reference Physician Member Role: PCP Address: Address: [address] [place] [address]- [place] Name: Daquan Sykes MD Position: [facility] Renal MD Member Role: Lifetime Consulting Physician Address: Address: [address] [place] [address] [address] [facility] [place] [address]- [place] Name: Lourdes Porter RN Position: S RN Member Role: Primary Care Nurse Name: Zay Hernandes Position: S RN Member Role: Primary Care Nurse Name: Laquita Franklin RN Position: S RN Member Role: Primary Care Nurse Care Team Related Persons Name: JESSICA SAAVEDRA Address: home [address] [place] [address]
--- OUTSIDE RECORDS SUMMARY | 2024-02-15 00:42 | XMS_ITS | Continuity of Care Document ---
Author Organization [facility] ter Address [address] [place] [address]- Care Team Providers Care Environmental Health Officer Name Role Phone Paris Cartagena MD Primary Care Physician [facility] Date[facility]s): 08/[facility]/20 - 08/05/[address] [address] Discharge Disposition: A-D/C Home Attending Physician: Kalin Aguillon MD Admitting Physician: Kalin Aguillon MD Referring Physician: Kalin Aguillon MD Allergies, Adverse Reactions, Alerts Substance Reaction Severity Status baclofen Drowsiness Active atorvastatin Muscle cramps Other Active polyethylene glycol 3350 Vomiting <not entered> Ac tive Immunizations Given and Recorded Vaccine Date Status Refusal Reason SARS-CoV-2 (COVID-19) mRNA-1273 vaccine 06/23/20 R ecorded SARS-CoV-2 (COVID-19) mRNA-1273 vaccine 05/27/20 R ecorded influenza virus vaccine, inactivated 1 12/23/19 Gi bettye influenza virus vaccine, inactivated 2 01/20/19 Gi bettye influenza virus vaccine, inactivated 3 01/20/19 Gi bettye Influenza Virus Vaccine (oldterm) 12/14/16 Recorde d pneumococcal 13-valent vaccine 03/09/16 Recorded tetanus/diphtheria/pertussis, acel(Tdap) 10/24/11 Recorded tetanus-diphtheria toxoids (Td) 05/16/01 Recorded pneumococcal 23-valent vaccine 09/15/00 Recorded 1Result Comment: [id number] 2Result Comment: SCREENING CHECKLIST REVIEWED. [facility] 74441-467-20 3Result Comment: Screening checklist reviewed. [facility] 11827-664-61 Medications acetaminophen 325 mg oral tablet = 650 mg, By Mouth, Every 4 hours, Greater than 101 F or Mild Pain, 0 Refills, Maintenance, 08/09/14 14:49:05, Tablet Start Date: 08/09/14 Status: Ordered amLODIPine 2.5 mg oral tablet 1 tablet, By Mouth, Daily, # 90 tablet, 1 Refills, Maintenance, 05/31/20 19:16:00 EDT, [facility], 178, cm, [...] TO TEST BLOOD SUGAR 3-4 TIMES A DAY,[facility] Start Date: 07/01/18 Status: Ordered Emergen-C 0 Refills, Maintenance, 11/08/19 18:19:00 EDT Start Date: 11/08/19 Status: Ordered ezetimibe 10 mg oral tablet 1 tablet, By Mouth, Daily, # 90 tablet, 0 Refills, Maintenance, 05/31/20 19:14:00 EDT, [facility] ALMAZAN, cm, 03/31/20 10:25:00 EST, Height, 83, kg, 11/16/18 13:47:00 EDT, Dry Weight Start Date: 05/31/20 Status: Ordered glipiZIDE 5 mg oral tablet, extended release 1 tablet = 5 mg, By Mouth, 2 times a day, before meals, # 180 tablet, 1 Refills, Maintenance, 02/12/20 10:49:00 EST, ER Tablet, [facility] GROVES, cm, 01/27/20 10:40:00 EST, Height, 83, kg, [...] Replace Required Details, Route to Pharmacy Electronically, [id number],... Start Date: 11/19/18 Status: Ordered Januvia 100 [...] tablet, 0 Refills, Maintenance,01/28/20 19:08:00 EST, Tablet, [facility] 1967, 178, cm, 01/27/20 10:40:00 EST, Height, [...] Maintenance, 03/31/20 14:36:00 EST, [facility] , 178, cm, 03/31/20 [...] to oldest [Reference Range]: 1 2 3 Oxygen Saturation [94-100 %] 100 % (08/05/20 9:46 AM) 100 % (08/05/20 9:35 AM) 100 % (08/05/20 8:41 AM) Blood Pressure [90-138/55-84 mm Hg] 148/72mm Hg *H* (08/05/20 9:46 AM) 143/72mm Hg *H* (08/05/20 9:35 AM) Systolic Blood Pressure [90-138 mm Hg] 179 mm Hg *H* (08/05/20 8:41 AM) Respiratory Rate [16-30 br/min] 18 br/min (08/05/20 9:46 AM) 18 br/min (08/05/20 9:35 AM) 201 br/min *H* (08/05/20 8:41 AM) Temperature [96.8-100.4 DegF] 98.2 DegF (08/05/20 8:41 AM) Mode of Delivery (Oxygen) Room air (08/05/20 9:46 AM) Room air (08/05/20 9:35 AM) Nasal cannula (08/05/20 8:41 AM) Temperature Route Tympanic (08/05/20 8:41 AM) Dry Weight 83 kg (08/05/20 8:41 AM) Social History Social History Type Response Smoking Status Former smoker entered on: 01/18/15 Sex
--- OUTSIDE RECORDS SUMMARY | 2024-02-15 00:42 | XMS_ITS | Continuity of Care Document ---
Author Organization [facility] Address [address] [place] [id number]- Care Team Providers Care Patients Transporter Name Role Phone Paris Cartagena MD Primary Care Physician [phone] Encounter [facility] Date(s): 11/09/21 - 11/16/21 [facility] [address] [place] [id number]- Attending Physician: Martha Hernandez NP Admitting Physician: [...] pneumococcal 23-valent vaccine 09/15/00 Recorded 1Result Comment: [id number] 2Result Comment: SCREENING CHECKLIST REVIEWED. [facility] [id number] 3Result Comment: Screening checklist reviewed. [facility] [id number] Medications acetaminophen 325 mg oral tablet = [...] Refills, Maintenance, 06/08/21 11:35:00 EDT, MEDS BY THA 177, cm, 05/11/21 13:28:00 EST, Height, 83, [...] 9:15:00 EDT, ER Tablet, MEDS BY MAIL MOHSEN, 177, cm, 07/19/21 [...] for anxiety, # 30 tablet, 0 Refills, Maintenance,08/22/21 12:01:00 EDT, [facility], cm, 07/19/21 11:12:00 EDT, Height, 83, kg, 08/05/20 8:41:00 EDT, Dry Weight Start Date: 08/22/21 Status: Ordered metFORMIN 1000 mg oral tablet [...] oldest [Reference Range]: 1 2 3 Height 177 cm (11/09/21 11:38 AM) 177 cm (11/09/21 10:12 AM) 177 cm (11/09/21 9:45 AM) Weight 82.10 kg (11/09/21 9:45 AM) Oxygen Saturation [94-100 %] 97 % (11/09/21 9:45 AM) Pulse Rate [55-90 bpm] 80 bpm (11/09/21 9:45 AM) Body Mass Index [18.5-24.99] 26.21 *H* (11/09/21 9:45 AM) Blood Pressure [90-138/55-84 mm Hg] 150/70mm Hg *H* (11/09/21 11:38 AM) 166/82mm Hg *H* (11/09/21 10:12 AM) 168/80mm Hg *H* (11/09/21 9:45 AM) Mode of Delivery (Oxygen) Room air (11/09/21 9:45 AM) Blood pressure sites Arm, left (11/09/21 11:38 AM) Arm, left (11/09/21 10:12 AM) Arm, right (11/09/21 9:45 AM) Weight Obtained Via Patient/family state d (11/09/21 9:45 AM) Social History Social History Type Response Smoking Status Former smoker, quit more than 30 days ago; Other: quit 2004; entered on: 07/19/21 Sex Care Team Personnel Name: Paris Cartagena MD Address: [address] [place] [address]
--- OUTSIDE RECORDS SUMMARY | 2024-02-15 00:42 | XMS_ITS | Continuity of Care Document ---
Author Organization [facility] Address [address] [place] [id number]- Care Team Providers Care Record Press Tender Name Role Phone Dana Arriaga Primary Care Physician Encounter [facility] Date(s): 05/22/22 - 05/29/22 [facility] [address] [place] [address]- Attending Physician: Martha Hernandez NP Admitting Physician: Martha Hernandez NP Referring Physician: Paris Cartagena MD Allergies, Adverse Reactions, Alerts Substance Reaction Severity Status baclofen Drowsiness Active polyethylene glycol 3350 Vomiting <not entered> Ac tive atorvastatin Muscle cramps Other Active Immunizations Given and Recorded Vaccine Date Status Refusal Reason [id number] bivalent booster vax 01/15/22 Recorded tetanus-diphtheria toxoids [...] pneumococcal 23-valent vaccine 09/15/00 Recorded 1Result Comment: [facility] [id number] 2Result Comment: [id number] 3Result Comment: SCREENING CHECKLIST REVIEWED. [facility] [id number] 4Result Comment: Screening checklist reviewed. [facility] [id number] Medications acetaminophen 325 mg oral tablet = [...] Refills, Maintenance, 03/28/22 11:54:00 EST, MEDS BY Bruce ALMAZAN, cm, 01/17/22 8:58:00 EDT, Height, 81.65, kg, [...] Maintenance, 03/28/22 15:31:00 EST, Tablet, MEDS BY Bruce GROVES, cm, 01/17/22 8:58:00 EDT, Height, 81.65, kg, [...] Refills, Maintenance,03/28/22 15:31:00 EST, Tablet, MEDS BY Bruce GROVES, cm, 01/17/22 8:58:00 EDT, Height, 81.65, kg, [...] Maintenance, 03/28/22 15:31:00 EST, MEDS BY MAIL MOHSEN 177, cm, 01/17/22 8:58:00 EDT, Height, 81.65, [...] oldest [Reference Range]: 1 Height 177 cm (05/22/22 7:41 AM) Weight 81.65 kg (05/22/22 7:41 AM) Oxygen Saturation [94-100 %] 97 % (05/22/22 7:41 AM) Pulse Rate [55-90 bpm] 76 bpm (05/22/22 7:41 AM) Body Mass Index [18.5-24.99 kg/m2] 26.06 kg/m2 *H* (05/22/22 7:41 AM) Blood Pressure [90-138/55-84 mm Hg] 138/ 50mm Hg (05/22/22 7:41 AM) Mode of Delivery (Oxygen) Room air (05/22/22 7:41 AM) Blood pressure sites Arm, left (05/22/22 7:41 AM) Weight Obtained Via Patient/family state d (05/22/22 7:41 AM) Social History Social History Type Response Smoking Status Former smoker, quit more than 30 days ago; Other: quit 2004; entered on: 07/19/21 Sex Patient Care team information Care Team Personnel Name: Nelli Esquivel RN Position: [facility] RN Member Role: Primary Care Nurse Name: Bal Henderson MD Position: [facility] Cardiology MD Member Role: Lifetime Consulting Physician Address: Address: [address] [place] [address] Name: Dana Arriaga Position: [facility] Associate Professional Member Role: PCP Address: Address: [facility] [address] [facility] [place] [address]- [place] Name: Daquan Sykes MD Position: [facility] Renal MD Member Role: Lifetime Consulting Physician Address: Address: [address] [facility] [address] [facility], [place] [address]- [place] Name: Lourdes Porter RN Position: S RN Member Role: Primary Care Nurse Name: Zay Hernandes Position: S RN Member Role: Primary Care Nurse Name: Laquita Franklin RN Position: S RN Member Role: Primary Care Nurse Care Team Related Persons Name: JESSICA SAAVEDRA Address: home [address] [place] [address]
--- NOTE | 2024-02-15 00:50 | ED_ITS ---
HPI - General Adult General Chief complaint: General Medical Stated complaint: gen med Time Seen by Provider: 02/15/24 00:49 Source: patient Mode of arrival: ambulatory Limitations: no limitations History of Present Illness ED Provider: HPI narrative: Patient is 68 years old with history of CAD status post CABG x3, HLD, HTN, T2 DM and PAD on Xarelto 2.5 mg twice a day accelerated took her p.m. medication twice once at 18:30 at the another at 2200 medication include amlodipine 5 mg atorvastatin Xarelto and carvedilol patient is asymptomatic as such blood pressure currently is 163/70 pulse rate of 68 Related Data Home Medications ?Medication ?Instructions ?Recorded ?Confirmed aspirin 81 mg capsule 81 mg PO DAILY 09/05/23 carvedilol 25 mg tablet 25 mg PO BID 09/05/23 cyanocobalamin (vitamin B-12) 1,000 mcg PO DAILY 09/05/23 1,000 mcg tablet (Vitamin B-12) dapagliflozin propanediol 10 mg 10 mg PO DAILY 09/05/23 tablet (Farxiga) insulin aspart U-100 100 unit/mL 12 unit subcut TID 09/05/23 subcutaneous solution (Novolog U-100 Insulin aspart) metformin 1,000 mg tablet 1,000 mg PO BID 09/05/23 rivaroxaban 2.5 mg tablet (Xarelto) 2.5 mg PO BID 09/05/23 amlodipine 5 mg tablet 10 mg PO DAILY 02/06/24 lisinopril 20 mg tablet 20 mg PO DAILY 02/06/24 Previous Rx's ?Medication ?Instructions ?Recorded lorazepam 0.5 mg tablet 0.5 mg PO DAILY PRN anxiety #30 09/05/23 tabs flash glucose sensor (FreeStyle #2 kits 11/11/23 Bob 2 Sensor kit) camphor-menthol 0.5 %-0.5 % lotion 1 appl topical BID-TID PRN itching 12/05/23 (Nathen Hayes) #222 mL pantoprazole 40 mg tablet,delayed 40 mg PO BID 90 days #180 tabs 12/23/23 release ezetimibe 10 mg tablet (Zetia) 10 mg PO DAILY #90 tabs 01/07/24 gabapentin 100 mg capsule 100 mg PO TID 14 days #42 caps 11/21/24 Allergies Allergy/AdvReac Type Severity Reaction Status Date / Time atorvastatin Allergy Unknown Muscle Verified 02/14/24 23:34 cramps baclofen Allergy Unknown drowsiness Verified 02/14/24 23:34 Review of Systems Review of Systems: Yes all other systems are reviewed and are negative [facility] Past Medical History Medical History Neuralgia Abdominal pain Pruritus CKD (chronic kidney disease) Hypercalcemia Hyperparathyroidism Type 2 diabetes mellitus with vascular disease Subclinical hyperthyroidism Sciatica Pneumothorax, left Essential hypertension Hyperlipidemia Hyperkalemia Lumbar degenerative disc disease Female cystocele Colon adenomas B12 deficiency Coronary artery stenosis CAD (coronary artery disease) Atherosclerotic PVD with intermittent claudication Anxiety Surgical History History of right-sided carotid endarterectomy History of back surgery S/P CABG x 3 Family History Family History Mother Hyperlipidemia HTN (hypertension) Sister Stroke Brother Chondrosarcoma Prostate cancer Social History Social History Housing: House Patient Tobacco Use Status: Former Tobacco user Cigarette Packs Per Day: 1 Years Smoked: 15 Smoked in Last 30 Days: No e-Cigarette/Vaping Use: Never Used Second Hand Smoke Exposure: No Use of substances other than those prescribed or required for medical reasons: No Advance Directives: No Advance Directives Information Provided: Yes Do you have a plan to hurt others: No Plan service: No Current occupational status: retired Cognitive needs: No Hearing needs: No Vision needs: Yes (glasses) Physical Exam ED Vital Signs: Vital Signs - 24 hr 02/14/24 23:27 02/14/24 23:43 02/15/24 00:22 Temperature 98.2 F 98.0 F Pulse Rate 81 74 68 Respiratory Rate 18 22 H 17 Blood Pressure 115/92 H 173/72 H 152/65 H Pulse Oximetry 94 94 92 Oxygen Delivery Method Room Air Room Air Room Air 02/15/24 00:58 02/15/24 01:03 Temperature 98.0 F Pulse Rate 67 68 Respiratory Rate 13 15 Blood Pressure 149/65 H 163/70 H Pulse Oximetry 93 93 Oxygen Delivery Method Room Air Room Air BMI result Body Mass Index 25.8 Appearance: Alert. Oriented X3. No acute distress. Eyes: PERRLA, No Nystagmus ENT: Pharynx normal. Oral Mucosa moist Neck: Normal inspection. Neck supple. CVS: Normal heart rate and rhythm. Pulses normal. Respiratory: No respiratory distress. Equal air entry bilateral, no wheezing/rales/rhonchi Abdomen: Soft and nontender. Bowel sounds are present, no mass palpable, no CVA tenderness Skin: Skin warm and dry. Normal skin color. Normal skin turgor. Extremities: No lower extremity edema. No calf tenderness Neuro: Oriented X 3. No motor deficit. No sensory deficit.No cerebellar signs , cranial nerves II-XII intact Medical Decision Making Medical Decision Making MDM Narrative: Patient accidental ingestion of medications which were not toxic vitals are stable advised patient to be more cautious and taking medication follow up with PCP Discharge Plan Discharge Clinical Impression: Accidental overdose Patient Disposition: Home, Self-Care Instructions: Adult Overdose (ED) Additional Instructions: Be careful in taking your medications Check blood pressure before you take the morning medication if it is lower than 110/60 you may skip blood pressure medications Prescriptions: No Action (DME) FreeStNordex Online Bob 2 Sensor Kit See Rx Instructions .ROUTE .MEDSUPPLY Qty: 2 0RF Rx Instructions: As directed ezetimibe [Zetia] 10 mg tablet 10 mg PO DAILY Qty: 90 3RF carvedilol 25 mg tablet 25 mg PO BID Rx Instructions: must administer with a meal/food aspirin 81 mg capsule 81 mg PO DAILY insulin aspart U-100 [Novolog U-100 Insulin aspart] 100 unit/mL solution 12 unit subcut TID Patient Comments: 12 units in the am. 14 units in pm cyanocobalamin (vitamin B-12) [Vitamin B-12] 1,000 mcg tablet 1,000 mcg PO DAILY metformin 1,000 mg tablet 1,000 mg PO BID Xarelto 2.5 mg tablet 2.5 mg PO BID dapagliflozin propanediol [Farxiga] 10 mg tablet 10 mg PO DAILY lorazepam 0.5 mg tablet 0.5 mg PO DAILY PRN (Reason: anxiety) Qty: 30 0RF amlodipine 5 mg tablet 10 mg PO DAILY pantoprazole 40 mg tablet,delayed release (DR/EC) 40 mg PO BID 90 Days Qty: 180 0RF lisinopril 20 mg tablet 20 mg PO DAILY gabapentin 100 mg capsule 100 mg PO TID 14 Days Qty: 42 0RF Sarna Original 0.5-0.5 % lotion 1 appl topical BID-TID PRN (Reason: itching) Qty: 222 3RF Print Language: Wolof
[2024-02-15 00:58] VITALS: BP 149/65; PULSE 67; RESP 13; O2SAT 93
[2024-02-15 01:03] VITALS: BP 163/70; PULSE 68; RESP 15; TEMP 36.7; O2SAT 93
[2024-02-15 01:28] VITALS: BP 163/70; PULSE 68; RESP 15; TEMP 36.7; O2SAT 93
== END 2024-02-15 01:30 | disposition home or self-care (01) ==
PROVIDERS: Emergency Provider Internal Medicine
DX: T50.901A Poisoning by unspecified drugs, medicaments and biological substances, accidental (unintentional), initial encounter (principal); Y92.9 Unspecified place or not applicable; E11.22 Type 2 diabetes mellitus with diabetic chronic kidney disease; I12.9 Hypertensive chronic kidney disease with stage 1 through stage 4 chronic kidney disease, or unspecified chronic kidney disease; N18.9 Chronic kidney disease, unspecified; E78.5 Hyperlipidemia, unspecified; Z95.1 Presence of aortocoronary bypass graft; Z79.82 Long term (current) use of aspirin; Z79.4 Long term (current) use of insulin; Z79.01 Long term (current) use of anticoagulants; Z79.899 Other long term (current) drug therapy; Z87.891 Personal history of nicotine dependence
CPT/HCPCS: 99284

== ENCOUNTER 2024-03-30 11:40 | Outpatient (AMB) | payer MEDICARE, OTHER, SELFPAY ==
--- NOTE | 2024-03-30 11:55 | MHC.PC.OV ---
Vital Signs 03/30/24 12:01 Height 5 ft 11 in BP 134/76 Blood Pressure Location Rt brachial Position Sitting Pulse 62 Pulse Source Pulse Oximeter Pulse Oximetry (%) 94 Oxygen Delivery Method Room Air Intake Visit Reasons: med review Intake Note: Medication follow up. Needs refill on Pravastatin, Pantoprazole, Carvedilol, Amlodipine, Lorazepam. Swelling in left foot since around Jean-Pierre time. Allergies atorvastatin Allergy (Unknown, Verified 03/30/24 11:55) Muscle cramps baclofen Allergy (Unknown, Verified 03/30/24 11:55) drowsiness Dental Screening Dental Screen Date: 09/05/23 HPI HPI Comments History of Present Illness Details This is a 68-year-old female with a past medical history of coronary artery disease, peripheral arterial disease, hyperlipidemia, hypertension and type 2 diabetes presenting for follow up. Cardiovascular-followed by cardiology. Compliant with medications. Denies chest pain or shortness of breath. Followed at [facility] vascular. She had a recent carotid artery u/s, and was told she does have some stenosis on one side, and they will repeat the ultrasound in July this year. She has intermittent claudication in the right lower extremity. She is on Xarelto. Endocrine- Dr. Christie for hyperparathyroidism and diabetes. She checks her glucose readings at home. She has an eye exam yearly with Dr. Angel. Her hemoglobin A1c is down to 7.6% today. She has chronic knee and back pain treated with physical therapy. She has taken Zanaflex muscle relaxant as needed in the past. She requests a new referral for PT. She is seen Podiatry for a right heel spur for which she received cortisone injections. She uses lorazepam 0.5 mg daily as needed for anxiety. She had an abnormal mammogram on September 07, 2022. There were suspected benign calcifications. Patient reports having the mammogram repeated in February with no suspicious findings, and she was instructed to repeat it in a year. She had a mammogram done 03/19/23, and it was normal. Repeat screening in 1 year was recommended. We discussed RSV and pneumonia vaccines today. She will get them at the pharmacy if she wants to proceed. Patient was seen in office in at ED for abdominal pain. She saw [facility] gastro 12/23/23. She is going to have EGD and colonoscopy. She had an abdominal ultrasound completed on 01/01/2024 which was unremarkable aside from a midpole benign-appearing left kidney cyst that required no follow up imaging. She has a history of colon adenomas. Her last colonoscopy was in 2020. She denies current abdominal pain. She is being treated with pantoprazole 40 mg twice daily. Reports having bone density exam at [facility] recently. Result requested. ROS: Constitutional: No unexplained weight loss, fever, chills or night sweats. Eyes: No vision change Respiratory: No shortness of breath, cough or sputum production. Cardiovascular: No chest pain, chest pressure or chest discomfort. No palpitations or pedal edema. Gastrointestinal: No anorexia, nausea, vomiting or diarrhea. No abdominal pain or blood in stool. Neurologic: No headache, dizziness, syncope Skin: No rash Physical exam: Constitutional: Alert, in no distress. Neck: Supple, Full range of motion. No lymphadenopathy. Respiratory: Clear to auscultation. Cardiovascular: S1 S2 regular. No murmurs. Extremities: Warm and well perfused. No clubbing, cyanosis or edema. Psychiatric: Normal mood and affect [facility] Medical History Neuralgia Abdominal pain Pruritus CKD (chronic kidney disease) Hypercalcemia Hyperparathyroidism Type 2 diabetes mellitus with vascular disease Subclinical hyperthyroidism Sciatica Pneumothorax, left Essential hypertension Hyperlipidemia Hyperkalemia Lumbar degenerative disc disease Female cystocele Colon adenomas B12 deficiency Coronary artery stenosis CAD (coronary artery disease) Atherosclerotic PVD with intermittent claudication Anxiety Surgical History History of right-sided carotid endarterectomy History of back surgery S/P CABG x 3 Family History Mother Hyperlipidemia HTN (hypertension) Sister Stroke Brother Chondrosarcoma Prostate cancer Social History Housing: House Patient Tobacco Use Status: Former Tobacco user Cigarette Packs Per Day: 1 Years Smoked: 15 e-Cigarette/Vaping Use: Never Used Second Hand Smoke Exposure: No service: No Current occupational status: retired Cognitive needs: No Hearing needs: No Vision needs: Yes (glasses) Questionnaire PHQ-9 Over the last 2 weeks, how often have you been bothered by any of the following problems? 3. Trouble falling or staying asleep, or sleeping too much: several days 8. Moving or speaking so slowly that other people could have noticed. Or the opposite - being so fidgety or restless that you have been moving around a lot more than usual: not at all 9. Thoughts that you would be better off or of hurting yourself in some way: not at all Source: Developed by Drs. Mohit Villagomez, Alpa Clark, Aiden Pearson and colleagues, with an educational jamey from [employer]. Thrive Questionnaire Date Thrive assessed: 03/26/24 I am a: Patient What is your living situation today?: I have a steady place to live Within the past 12 months, did the food you bought not last and you didn't have the money to get more?: I choose not to answer this question Within the past 12 months, did you worry whether your food would run out before you got money to buy more?: I choose not to answer this question Do you have trouble paying for medicines?: No Do you have trouble getting transportation to medical appointments?: No Do you have trouble paying your heating and electricity bill?: I choose not to answer this question Do you have trouble taking care of your child, family member or friend?: No Do you have trouble with day-to-day activities such as bathing, preparing meals, shopping, managing finances, etc.?: No Are you currently unemployed and looking for a job?: No Are you interested in more education?: No Please select the resources that you would like help with: None Currently or been in a relationship where the following occur: No concerns reported THRIVE Score: 0 AUDIT C Alcohol Use Questionnaire (AUDIT-C) 1. How often do you have a drink containing alcohol?: Never 3. How often do you have six or more drinks on one occasion?: Never Total Score: 0 CANDE-7 AMB Questionnaire CANDE-7 Feeling nervous, anxious, or on edge: 1 = Several days Not being able to stop or control worryin = Not at all Worrying too much about different things: 0 = Not at all Trouble relaxin = Not at all Being so restless that it is hard to sit still: 0 = Not at all Becoming easily annoyed or irritable: 1 = Several days Feeling afraid as if something awful might happen: 0 = Not at all Total CANDE-7 score (0-4 normal; 5-9 mild; 10-14 moderate; 15-21 severe): 2 Source: Developed by Drs. Mohit Villagomez, Alpa Clark, Aiden Pearson and colleagues, with an educational jamey from [employer]. Physical exam (Primary Care) Vital Signs: Last Vital Signs Pulse 62 03/30/24 12:01 BP 134/76 03/30/24 12:01 Pulse Ox 94 03/30/24 12:01 Oxygen Delivery Method Room Air 03/30/24 12:01 Tobacco/Smoking Status: Tobacco use Status Patient Tobacco Use Status Former Tobacco user 03/30/24 11:57 e-Cigarette/Vaping Use Never Used 03/30/24 11:57 Thrive Assessment: Date of Thrive Assessment Date Thrive assessed 03/26/24 03/30/24 11:57 Currently or been in a relationship where the following occur: No concerns reported Results AMB Hemoglobin A1c AMB Hemoglobin A1c 7.6 % Last Edit by Eliza Shultz CMA on 03/30/24 13:53 Results Reviewed Results Reviewed: Laboratory Last Values Hgb A1c (Clinic) 7.6 % (4.0-6.0) H 03/30/24 13:51 Coding Level of Care Code Est Pt Level 4 (88624) Complex EM visit Add On G2211 Diagnoses Abdominal pain R10.9 Type 2 diabetes mellitus with vascular disease E11.59 Hyperparathyroidism E21.3 Subclinical hyperthyroidism E05.90 S/P CABG x 3 Z95.1 B12 deficiency E53.8 Coronary artery stenosis I25.10 Atherosclerotic PVD with intermittent claudication I70.219 Anxiety F41.9 Assessment & Plan Assessment & Plan (1) Abdominal pain: Code(s): R10.9 - Unspecified abdominal pain Category: Medical (2) Type 2 diabetes mellitus with vascular disease: Code(s): E11.59 - Type 2 diabetes mellitus with other circulatory complications Category: Medical (3) Hyperparathyroidism: Code(s): E21.3 - Hyperparathyroidism, unspecified Category: Medical (4) Subclinical hyperthyroidism: Code(s): E05.90 - Thyrotoxicosis, unspecified without thyrotoxic crisis or storm Category: Medical (5) S/P CABG x 3: Code(s): Z95.1 - Presence of aortocoronary bypass graft Category: Surgical (6) B12 deficiency: Code(s): E53.8 - Deficiency of other specified B group vitamins Category: Medical (7) Coronary artery stenosis: Code(s): I25.10 - Atherosclerotic heart disease of elem coronary artery without angina pectoris Category: Medical (8) Atherosclerotic PVD with intermittent claudication: Code(s): I70.219 - Atherosclerosis of elem arteries of extremities with intermittent claudication, unspecified extremity Category: Medical (9) Anxiety: Code(s): F41.9 - Anxiety disorder, unspecified Category: Medical Plan Improved glycemic control. Followed by endocrinology. No medication changes made at this visit today. She will continue her current regimen. She is followed by multiple specialists and staying up-to-date with the appointments. She is going to proceed with endoscopy/colonoscopy with Gastroenterology. She will have lab work completed. Provided PT referral for ongoing knee and back pain. Follow up in 4 months. Orders: Orders Lipid Panel 03/30/24 E11.59 - Type 2 diabetes mellitus with other circulatory complications, E21.3 - Hyperparathyroidism, unspecified, E78.5 - Hyperlipidemia, unspecified, E83.52 - Hypercalcemia, N18.9 - Chronic kidney disease, unspecified Comprehensive Met. Panel 03/30/24 E11.59 - Type 2 diabetes mellitus with other circulatory complications, E21.3 - Hyperparathyroidism, unspecified, E83.52 - Hypercalcemia, N18.9 - Chronic kidney disease, unspecified AMB Hemoglobin A1c 03/30/24 E11.59 - Type 2 diabetes mellitus with other circulatory complications Complete Blood Count no Diff 03/30/24 E11.59 - Type 2 diabetes mellitus with other circulatory complications, E21.3 - Hyperparathyroidism, unspecified, E83.52 - Hypercalcemia, N18.9 - Chronic kidney disease, unspecified Vitamin B12 03/30/24 E11.59 - Type 2 diabetes mellitus with other circulatory complications, E21.3 - Hyperparathyroidism, unspecified, E83.52 - Hypercalcemia, N18.9 - Chronic kidney disease, unspecified, Z91.89 - Other specified personal risk factors, not elsewhere classified PT Evaluation and Treatment 03/30/24 G89.29 - Other chronic pain, M25.561 - Pain in right knee, M25.562 - Pain in left knee, M54.50 - Low back pain, unspecified
[2024-03-30 12:01] VITALS: BP 134/76; PULSE 62; O2SAT 94
== END 2024-03-30 12:26 | disposition home or self-care (01) ==
PROVIDERS: PCP Physician Assistant Medical; Visit Provider Physician Assistant Medical
DX: E11.59 Type 2 diabetes mellitus with other circulatory complications (principal)

== ENCOUNTER → 2024-03-30 11:40 | Outpatient (BNVA) | payer MEDICARE, OTHER, SELFPAY | PROVIDERS: PCP Physician Assistant Medical; Visit Provider Physician Assistant Medical | DX: R10.9 Unspecified abdominal pain (principal); E11.59 Type 2 diabetes mellitus with other circulatory complications; E21.3 Hyperparathyroidism, unspecified; E05.90 Thyrotoxicosis, unspecified without thyrotoxic crisis or storm; E53.8 Deficiency of other specified B group vitamins; I25.10 Atherosclerotic heart disease of native coronary artery without angina pectoris; I70.219 Atherosclerosis of native arteries of extremities with intermittent claudication, unspecified extremity; F41.9 Anxiety disorder, unspecified; I10 Essential (primary) hypertension; Z79.899 Other long term (current) drug therapy; Z95.1 Presence of aortocoronary bypass graft | CPT/HCPCS: 83036; 99212 ==

== ENCOUNTER 2024-07-30 11:28 | Outpatient (AMB) | payer MEDICARE, OTHER, SELFPAY ==
--- NOTE | 2024-07-30 11:50 | MHC.PC.OV ---
Vital Signs 07/30/24 12:00 Height 5 ft 11 in Weight 179 lb 2 oz BMI 25.0 BP 126/62 Blood Pressure Location Lt brachial Position Sitting Pulse 69 Pulse Source Pulse Oximeter Temp 97.9 F Temp Source Temporal Artery Scan Pulse Oximetry (%) 95 Oxygen Delivery Method Room Air Intake Visit Reasons: med review Intake Note: Marcel presents in the office today for a medication review. Allergies atorvastatin Allergy (Unknown, Verified 07/30/24 11:52) Muscle cramps baclofen Allergy (Unknown, Verified 07/30/24 11:52) drowsiness Tobacco use date assessed: 07/30/24 Fall risk assessment: No Falls in past year Last assessed Fall Risk: 07/30/24 Dental Screening Dental Screen Date: 07/30/24 Did you have a dental visit in the last 12 months?: No Did you have a dental problem in the last 6 months where you did not have access to dental care?: No Was dental information given to patient?: No HPI HPI Comments History of Present Illness Details This is a 69-year-old female with a past medical history of coronary artery disease, peripheral arterial disease, hyperlipidemia, hypertension and type 2 diabetes presenting for follow up. Cardiovascular-followed by cardiology, Dr. Fernández. Compliant with medications. Denies chest pain or shortness of breath. Followed at [facility]. On the last carotid artery u/s, and was told she does have some stenosis on the left side, and they will repeat the ultrasound in August. Endocrine- Dr. Christie for hyperparathyroidism and diabetes. She checks her glucose readings at home. She has had occasional lows in the 60s overnight. She does not have symptoms, but her Bob 3 alerts her. She has an eye exam yearly with Dr. Angel. She had blood work done at lab [facility] yesterday, but we have not received the results yet. She has chronic knee and back pain treated with physical therapy. She has taken Zanaflex muscle relaxant as needed in the past. She is seen Podiatry for a right heel spur for which she received cortisone injections. She uses lorazepam 0.5 mg daily as needed for anxiety. She had an abnormal mammogram on September 07, 2022. There were suspected benign calcifications. Patient reports having the mammogram repeated in February with no suspicious findings, and she was instructed to repeat it in a year. She had a mammogram done 1/2/24, and it was normal. Repeat screening in 1 year was recommended. We discussed RSV and pneumonia vaccines again today. She will get them at the pharmacy if she wants to proceed. Patient was seen in office in at ED for abdominal pain. She saw [facility] gastro 12/23/23. She is in the process of scheduling EGD/colonoscopy. She had an abdominal ultrasound completed on 01/01/2024 which was unremarkable aside from a midpole benign-appearing left kidney cyst that required no follow up imaging. She has a history of colon adenomas. Her last colonoscopy was in 2020. She denies current abdominal pain. She is being treated with pantoprazole 40 mg twice daily. Denies abdominal pain recently. We have not received the results of her bone density exam from [facility]. ROS: Constitutional: No unexplained weight loss, fever, chills or night sweats. Eyes: No vision change Respiratory: No shortness of breath, cough or sputum production. Cardiovascular: No chest pain, chest pressure or chest discomfort. No palpitations or pedal edema. Gastrointestinal: No anorexia, nausea, vomiting or diarrhea. No abdominal pain or blood in stool. Neurologic: No headache, dizziness, syncope Skin: No rash Physical exam: Constitutional: Alert, in no distress. Neck: Supple, Full range of motion. No lymphadenopathy. Respiratory: Clear to auscultation. Cardiovascular: S1 S2 regular. No murmurs. Abdomen: Soft, nontender, normoactive bowel sounds in 4 quadrants, no palpable masses Extremities: Warm and well perfused. No clubbing, cyanosis or edema. Psychiatric: Normal mood and affect [facility] Medical History (Updated 05/11/24 @ 17:12 by JAZ Krishna) Osteopenia Neuralgia Abdominal pain Pruritus CKD (chronic kidney disease) Hypercalcemia Hyperparathyroidism Type 2 diabetes mellitus with vascular disease Subclinical hyperthyroidism Sciatica Pneumothorax, left Essential hypertension Hyperlipidemia Hyperkalemia Lumbar degenerative disc disease Female cystocele Colon adenomas B12 deficiency Coronary artery stenosis CAD (coronary artery disease) Atherosclerotic PVD with intermittent claudication Anxiety Surgical History History of right-sided carotid endarterectomy History of back surgery S/P CABG x 3 Family History Mother Hyperlipidemia HTN (hypertension) Sister Stroke Brother Chondrosarcoma Prostate cancer Social History (Updated 07/30/24 @ 11:57 by Kathy Flores MA) Housing: House Alcohol intake: never Patient Tobacco Use Status: Former Tobacco user Cigarette Packs Per Day: 1 Years Smoked: 15 e-Cigarette/Vaping Use: Never Used Second Hand Smoke Exposure: No service: No Current occupational status: retired Cognitive needs: No Hearing needs: No Vision needs: Yes (glasses) Questionnaire PHQ-9 Over the last 2 weeks, how often have you been bothered by any of the following problems? 1. Little interest or pleasure in doing things: nearly every day 2. Feeling down, depressed, or hopeless: nearly every day 4. Feeling tired or having little energy: several days 5. Poor appetite or overeating: not at all 6. Feeling bad about yourself - or that you are a failure or have let yourself or your family down: not at all 7. Trouble concentrating on things, such as reading the newspaper or watching television: not at all Depression Screening Interpretation: Negative Depression Screening Done: Yes 87947 - PHQ-9 Billing: Yes Source: Developed by Drs. Mohit Villagomez, Alpa Clark, Aiden Pearson and colleagues, with an educational jamey from [facility]. Thrive Questionnaire Date Thrive assessed: 07/30/24 I am a: Patient What is your living situation today?: I have a steady place to live Within the past 12 months, did the food you bought not last and you didn't have the money to get more?: I choose not to answer this question Within the past 12 months, did you worry whether your food would run out before you got money to buy more?: I choose not to answer this question Do you have trouble paying for medicines?: No Do you have trouble getting transportation to medical appointments?: No Do you have trouble paying your heating and electricity bill?: I choose not to answer this question Do you have trouble taking care of your child, family member or friend?: No Do you have trouble with day-to-day activities such as bathing, preparing meals, shopping, managing finances, etc.?: No Are you currently unemployed and looking for a job?: No Are you interested in more education?: No Please select the resources that you would like help with: None Currently or been in a relationship where the following occur: No concerns reported THRIVE Score: 0 AUDIT C Alcohol Use Questionnaire (AUDIT-C) 1. How often do you have a drink containing alcohol?: Never Total Score: 0 CANDE-7 AMB Questionnaire CANDE-7 Date CANDE - 7 assessed: 07/30/24 Feeling nervous, anxious, or on edge: 1 = Several days Not being able to stop or control worryin = Nearly every day Worrying too much about different things: 1 = Several days Trouble relaxin = Several days Being so restless that it is hard to sit still: 1 = Several days Becoming easily annoyed or irritable: 1 = Several days Feeling afraid as if something awful might happen: 1 = Several days Total CANDE-7 score (0-4 normal; 5-9 mild; 10-14 moderate; 15-21 severe): 9 Source: Developed by Drs. Mohit Villagomez, Alpa Clark, Aiden Pearson and colleagues, with an educational jamey from [facility]. CANDE-7 Assessment Billing CANDE-7 Assessment Tool: CANDE-7 Assessment 56602 Physical exam (Primary Care) Vital Signs: Last Vital Signs Temp 97.9 F 07/30/24 12:00 Pulse 69 07/30/24 12:00 BP 126/62 07/30/24 12:00 Pulse Ox 95 07/30/24 12:00 Oxygen Delivery Method Room Air 07/30/24 12:00 BMI result Body Mass Index 25.0 Tobacco/Smoking Status: Tobacco use Status Tobacco use date assessed 07/30/24 07/30/24 12:05 Patient Tobacco Use Status Former Tobacco user 07/30/24 11:57 e-Cigarette/Vaping Use Never Used 07/30/24 11:57 Depression Screening Interpretation: Negative Thrive Assessment: Date of Thrive Assessment Date Thrive assessed 07/30/24 07/30/24 12:05 Currently or been in a relationship where the following occur: No concerns reported Coding Level of Care Code Est Pt Level 4 (27231) Complex EM visit Add On G2211 Diagnoses Abdominal pain R10.9 Type 2 diabetes mellitus with vascular disease E11.59 Hyperparathyroidism E21.3 Subclinical hyperthyroidism E05.90 S/P CABG x 3 Z95.1 B12 deficiency E53.8 Coronary artery stenosis I25.10 Atherosclerotic PVD with intermittent claudication I70.219 Anxiety F41.9 Additional Codes CANDE-7 Assessment Billing - CANDE-7 Assessment Tool: CANDE-7 Assessment 05643 ([id number]) PHQ-9 - 49327 - PHQ-9 Billing: Yes ([id number]) Assessment & Plan Assessment & Plan (1) Abdominal pain: Code(s): R10.9 - Unspecified abdominal pain Category: Medical (2) Type 2 diabetes mellitus with vascular disease: Code(s): E11.59 - Type 2 diabetes mellitus with other circulatory complications Category: Medical (3) Hyperparathyroidism: Code(s): E21.3 - Hyperparathyroidism, unspecified Category: Medical (4) Subclinical hyperthyroidism: Code(s): E05.90 - Thyrotoxicosis, unspecified without thyrotoxic crisis or storm Category: Medical (5) S/P CABG x 3: Code(s): Z95.1 - Presence of aortocoronary bypass graft Category: Surgical (6) B12 deficiency: Code(s): E53.8 - Deficiency of other specified B group vitamins Category: Medical (7) Coronary artery stenosis: Code(s): I25.10 - Atherosclerotic heart disease of [place] coronary artery without angina pectoris Category: Medical (8) Atherosclerotic PVD with intermittent claudication: Code(s): I70.219 - Atherosclerosis of [place] arteries of extremities with intermittent claudication, unspecified extremity Category: Medical (9) Anxiety: Code(s): F41.9 - Anxiety disorder, unspecified Category: Medical Plan Awaiting lab results. Followed by endocrinology. Recommended avoidance of sugary foods and following a low-carbohydrate diet. Reviewed portion sizes. Advised patient to check a fingerstick glucose if Bob 3 alerts her to hypoglycemia at night and she is asymptomatic. I also asked her to message me over the patient portal the next time this happens. Reviewed treatment of hypoglycemia with the patient. No medication changes made at this visit today. She will continue her current regimen. She is followed by multiple specialists and staying up-to-date with the appointments. She is going to proceed with endoscopy/colonoscopy with Gastroenterology. Continue PT for ongoing knee and back pain. Strongly recommended receiving pneumonia vaccine and RSV vaccine at her pharmacy. Follow up in 4 months.
[2024-07-30 12:00] VITALS: BP 126/62; PULSE 69; TEMP 36.6; O2SAT 95; BMI 25.0
--- OUTSIDE RECORDS SUMMARY | 2024-07-30 12:36 | XMS_ITS | Clinical Summary ---
Author Organization [facility] Address [address] [place] [address] Care Team Providers Care Component Lab Tech Name Role Phone Dana Polo Primary Care Provider [phone] Social History Tobacco Use Types Packs/Day Years Used Date Smoking Tobacco: Never Assessed Comments Unknown Sex and Gender Information Value Date Recorded Sex Assigned at Not on file Legal Sex Female 3:16 PM EDT Gender Identity Not on file Sexual Orientation Not on file Plan of Treatment Upcoming Encounters Date Type Department Care Team (Late st Contact Info) Description 09/21/2024 1:30 PM EDT Office Visit [address] [phone] Paris Cartagena MD [address] [place] [phone] Health Maintenance Due Date Last Done Comments Hepatitis C Virus Screening 1955 DTaP/Tdap/Td Vaccines (1 - Tdap) 1972 Mammogram 1993 Colonoscopy 1998 Pneumococcal Vaccines 50+ (1 of 1 - PCV) 2003 Zoster (Shingles) Vaccine (1 of 2) 2003 RSV Vaccine 60 years and older and Patients (1 - Risk 60-74 years 1-dose series) 2013 DXA Bone Density (Females,Ages 65 and older) 2018 COVID-19 Vaccine ( - 2023- season) 2023 08/07/2021, 01/12/2021, 06/23/2020, Additional history exists Influenza Vaccine 10/16/2024 12/24/2022, , 12/20/2020, Additional history exists Hepatitis B Vaccines Aged Out No long er eligible based on patient's age to complete this topic Insurance MEDICARE PART A & B [facility] MEDICARE PART A & B [facility] Care Teams Component Lab Tech Relationship Specialty Start Date End Date Dana Polo PA [address] [place] [phone] PCP - General General Medicine 12/09/23
--- OUTSIDE RECORDS SUMMARY | 2024-07-30 12:36 | XMS_ITS ---
Author Name [facility] Organization Unknown Problems Problem Status Onset Date Problem Type Date of Resoluti on Source Chronic kidney disease, unspecified CKD stage active EncounterDiagnosisAct CCT Care Team Organization Name Specialty Phone Email Start Date End Da [facility] Primary [facility] 12/20/2023
--- OUTSIDE RECORDS SUMMARY | 2024-07-30 12:36 | XMS_ITS | Encounter Summary ---
Author Organization [facility] Address [address] [place] [address] Care Team Providers Care [employer] Name Role Phone Dana Polo Primary Care Provider [phone] Reason for Visit * Reason Onset Date Comments Abdominal Pain 02/04/2024 Encounter Details Date Type Department Care Team (Late st Contact Info) Description 02/04/2024 Nurse Triage [facility] [address] [place] [phone] Dana Polo PA [address] [place] [id number] Social History Tobacco Use Types Packs/Day Years Used Date Smoking Tobacco: Never Assessed Comments Unknown Sex and Gender Information Value Date Recorded Sex Assigned at Not on file Legal Sex Female 3:16 PM EDT Gender Identity Not on file Sexual Orientation Not on file documented as of this encounter Miscellaneous Notes * Telephone Encounter - Aniyah Farfan RN - 02/04/2024 12:47 PM EST Spoke with: Patient Reason for call: Abdominal Pain Escalation needed: Yes Appointment Scheduled: No Pt calling with sudden severe stomach pains on left side x 1 month states started on right side andhas moved to her left side. States was seen in ED 2 weeks ago and had CT scan and ultrasound and nothing was found, Looking to establish care with DR. Cartagena as this was her PCP prior to her joining [facility]. Adivised to return to ED but refuses stating they found nothing wrong with her. Offered first available with DR. Cartagena in August but pt wants to see if she will make an exception and see her. Again explained she would need to establish care with DrDean To be seen and there are no openings until August, Pt insists message be sent to PCP requesting her to take her on as a new patient and to be seen sooner than August. Advised will message office to discuss with DR. Cartagena. Triage Disposition See Today in Office Triage care advice: Reason for Disposition MODERATE pain (e.g., interferes with normal activities that comes and goes (cramps) lasts > 24 hours (Exception: Pain with Vomiting or Diarrhea - see that Protocol.) Answer Assessment - Initial Assessment Questions 1. LOCATION: Where does it hurt? Abd pain x month, right now in front on left side and wraps around to side, 2. RADIATION: Does the pain shoot anywhere else? (e.g., chest, back) None, 3. ONSET: When did the pain begin? (e.g., minutes, hours or days ago) 1 month, 4. SUDDEN: Gradual or sudden onset? Had on right side and htat went away and now on left side, 5. PATTERN Does the pain come and go, or is it constant? - If it comes and goes: How long does it last? Do you have pain now? (Note: Comes and goes means the pain is intermittent. It goes away completely between bouts.) - If constant: Is it getting better, staying the same, or getting worse? (Note: Constant means the pain never goes away completely; most serious pain is constant and gets worse.) Constant, sometimes fel stabby, sharp sensitive to touch 6. SEVERITY: How bad is the pain? (e.g., Scale 1-10; mild, moderate, or severe) - MILD (1-3): Doesn't interfere with normal activities, abdomen soft and not tender to touch. - MODERATE (4-7): Interferes with normal activities or awakens from sleep, abdomen tender to touch. - SEVERE (8-10): Excruciating pain, doubled over, unable to do any normal activities. Severe 7. RECURRENT SYMPTOM: Have you ever had this type of stomach pain before? If Yes, ask: When was the last time? and What happened that time? None, 8. CAUSE: What do you think is causing the stomach pain? Unknown, 9. RELIEVING/AGGRAVATING FACTORS: What makes it better or worse? (e.g., antacids, bending or twisting motion, bowel movement) Lift breast off feels better, 10. OTHER SYMPTOMS: Do you have any other symptoms? (e.g., back pain, diarrhea, fever, urination pain, vomiting) none Protocols used: Abdominal Pain - Female-A-[place] documented in this encounter Plan of Treatment Upcoming Encounters Date Type Department Care Team (Late st Contact Info) Description 09/21/2024 1:30 PM EDT Office Visit [address] [place] [phone] Paris Cartagena MD [address] [place] [phone] documented as of this encounter Visit Diagnoses Not on filedocumented in this encounter Care Teams [employer] Relationship Specialty Start Date End Date Dana Polo PA [address] [place] [phone] PCP - General General Medicine 12/09/23 documented as of this encounter
--- OUTSIDE RECORDS SUMMARY | 2024-07-30 12:36 | XMS_ITS | Clinical Summary ---
Author Organization [facility] 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 Role Phone Dana Polo PA-C Primary Care Provider [phone] Allergies Active Allergy Reactions Criticality Noted Date Comments Atorvastatin 11/04/2020 Baclofen 11/04/2020 Polyethyl Glycol-Propyl Glycol 11/04 Medications LORazepam (ATIVAN) 0.5 MG tablet Take 1 tablet by mouth if needed Active acetaminophen (TYLENOL) 325 MG tablet Take 2 mg by mouth every 6 (six) hours if needed for mild pain Active aspirin (ST MARY) 81 MG EC tablet Take 81 mg by mouth 1 (one) time each day Active carvedilol (COREG) 25 MG tablet Take 25 mg by mouth 2 (two) times a day with meals Active metFORMIN (GLUMETZA) 1000 MG 24 hr tablet Take 1,000 mg by mouth in the morning and 1,000 mg in the evening. Do not crush, chew, or split. . Active pantoprazole (PROTONIX) 40 MG EC tablet Take 40 mg by mouth 1 (one) time each day before breakfast Do not crush, chew, or split. Active pravastatin (PRAVACHOL) 80 MG tablet Take 80 mg by mouth 1 (one) time each day Active ezetimibe (ZETIA) 10 MG tablet Take 10 mg by mouth 1 (one) time each day Active Rivaroxaban (Xarelto) 2.5 MG tablet Take 1 tablet by mouth 2 (two) times a day Active amLODIPine (NORVASC) 2.5 MG tablet Take 1 tablet (2.5 mg total) by mouth 1 (one) time each day 90 tablet 5 05/17/202 3 Active Injection Device for Insulin device Inject under the skin 4 Active Cholecalciferol (Vitamin D3) 50 MCG (1999 UT) tabletIndicatio ns:Stage 3a chronic kidney disease (HCC),Vitamin D deficiency, not otherwise specified Take 2,000 Units by mouth 1 (one) time each day 90 tablet 3 5 05/20/19 26 Active Dapagliflozin Propanediol (Farxiga) 10 MG tabletIndicatio ns:Chronic kidney disease, stage 2 (mild),Type 2 diabetes mellitus with diabetic chronic kidney disease (HCC),Persisten t proteinuria Take 10 mg by mouth 1 (one) time each day 90 tablet 3 5 09/24/19 25 Active lisinopril-hydr oCHLOROthiazide (PRINZIDE,ZESTO RETIC) 20-25 MG per tablet Take 1 tablet by mouth 1 (one) time each day 30 tablet 5 08/10/19 25 Active lisinopril-hydr oCHLOROthiazide (PRINZIDE,ZESTO RETIC) 20-25 MG per tablet Take 1 tablet by mouth 1 (one) time each day 07/11/19 25 Discontinu ed(Reorder (does not appear on AVS)) Active Problems Problem Noted Date Diagnosed Date Stage 3a chronic kidney disease 01/29/2024 Primary hyperparathyroidism 01/29/2024 Proteinuria 11/04/2020 Anxiety 11/04/2020 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 11/04/2020 Adenoma of ascending colon 11/04/2020 Type 2 diabetes mellitus wit h diabetic autonomic (poly)neuropathy 11/04/2020 Hypertension 11/04/2020 Hypercalcemia 11/04/2020 Peripheral vascular disease 11/04/2020 Hyperlipidemia 11/04/2020 Loss of hair 11/04/2020 Coronary artery bypass graft occlusion 1 Hyperthyroidism 11/04/2020 Type 2 diabetes mellitus with diabetic nephropat hy 11/04/2020 Chronic kidney disease, stage 2 (mild) 1 Hypertensive heart and chron ic 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 heart failure, with stage 1 through stage 4 chronic kidney disease, or unspecified chronic kidney disease 11/04/2020 Encounters Date Type Department Care Team Description 07/16/2024 Orders Only [facility] [address] [phone] Gracia Macdonald ARNP Stage 3a chronic kidney disease (HCC); Hypertension; Persistent proteinuria; Primary hyperparathyroidism (HCC) 07/10/2024 Refill [facility] [address] [phone] Danyel Valente 06/25/2024 Refill [facility] [address] [phone] Ana María Ahumada Chronic kidney disease, stage 2 (mild); Type 2 diabetes mellitus with diabetic chronic kidney disease (HCC); Persistent proteinuria 05/19/2024 3:30 PM EST Office Visit [facility] [address] [phone] Gracia Macdonald ARNP Stage 3a chronic kidney disease (HCC) (Primary Dx); Hypertension; Persistent proteinuria; Vitamin D deficiency, not otherwise specified 05/06/2024 Orders Only [facility] [address] [phone] Gracia Macdonald ARNP 05/06/2024 Office Communication [facility] [address] [phone] Bere Aldridge MA from Last 3 Months Family History Medical History Relation Comments Cancer Brother Hypertension Mother Heart disease Sister Relation Status Comments Brother Mother Sister Social History Tobacco Use Types Packs/Day Years Used Date Smoking Tobacco: Former Smokeless Tobacco: Never Tobacco Cessation:Counseling Given: Not Answered Alcohol Use Standard Drinks/Week Comments Never 0 (1 standard drink = 0.6 oz pur e alcohol) Comments Unknown Sex and Gender Information Value Date Recorded Sex Assigned at Not on file Legal Sex Female 4:48 PM EST Gender Identity Not on file Sexual Orientation Not on file Last Filed Vital Signs Vital Sign Reading Time Taken Comments Blood Pressure 124/60 05/19/2024 4:14 PM EST Pulse 65 05/19/2024 4:14 PM EST Temperature - - Respiratory Rate - - Oxygen Saturation 96% 03/26/2023 8:36 AM EST Inhaled Oxygen Concentration - - Weight 82.6 kg (182 lb) 05/19/2024 4:14 PM EST Height 180.3 cm (5' 11 ) 01/27/2021 3:49 PM EST Body Mass Index 25.38 01/27/2021 3:49 PM EST Plan of Treatment Upcoming Encounters Date Type Department Care Team (Late st Contact Info) Description 11/19/2024 11:45 AM EDT Office Visit [facility] [address] [phone] Gracia Macdonald ARNP [address] [phone] Health Maintenance Due Date Last Done Comments Breast Cancer Screening 1955 Colorectal Cancer Screening: Annual FOBT 2002 Colorectal Cancer Screening: Colonoscopy 2002 Colorectal Cancer Screening: Sigmoidoscopy 2002 Pneumococcal Vaccine: 50+ Years (2 of 2 - PPSV23) 05/04/2016 03/09/2016 Diabetes: Ophthalmology Exam 11/04/2020 Diabetes: Pedal Pulse Checked 11/04/2020 Diabetes: Sensory Foot Exam 11/04/2020 Diabetes: Visual Foot Exam 11/04/2020 Diabetes: Hemoglobin A1C 04/03/202401/01/ 024, 11/20/2023, 06/18/2022, Additional history exists Influenza Vaccine (Season Ended) 2024 12/23/2019, 01/20/2019, 12/14/2016 Pneumococcal Vaccine: Peds (0 to 5 Years) and At-Risk Patients (6 to 49 Years) Discontinued 03/09/2016 Hepatitis B Vaccine Aged Out No longe r eligible based on patient's age to complete this topic Procedures Procedure Name Priority Date/Time Associated Diagnosis Comments VITAMIN D 1,25 DIHYDROXY Routine 07/29/2024 7:04 AM EDT Stage 3a chronic kidney disease (HCC) URINE ALBUMIN / CREATININE RATIO Routine 07/29/2024 7:04 AM EDT Stage 3a chronic kidney disease (HCC) Hypertension Persistent proteinuria Primary hyperparathyroidism (HCC) PROTEIN / CREATININE RATIO, URINE Routine 07/29/2024 7:04 AM EDT Stage 3a chronic kidney disease (HCC) Hypertension Persistent proteinuria Primary hyperparathyroidism (HCC) CBC Routine 07/29/2024 7:04 AM EDT Stage 3a chronic kidney disease (HCC) Hypertension Persistent proteinuria Primary hyperparathyroidism (HCC) RENAL FUNCTION PANEL Routine 07/29/2024 7:04 AM EDT Stage 3a chronic kidney disease (HCC) Hypertension Persistent proteinuria Primary hyperparathyroidism (HCC) PTH, INTACT Routine 07/29/2024 7:04 AM EDT Stage 3a chronic kidney disease (HCC) Hypertension Persistent proteinuria Primary hyperparathyroidism (HCC) PTH, INTACT Routine 05/06/2024 7:22 AM EST VITAMIN D 25 HYDROXY Routine 05/06/2024 7:22 AM EST URINE ALBUMIN / CREATININE RATIO Routine 05/06/2024 7:22 AM EST PROTEIN / CREATININE RATIO, URINE Routine 05/06/2024 7:22 AM EST CBC Routine 05/06/2024 7:22 AM EST RENAL FUNCTION PANEL Routine 05/06/2024 7:22 AM EST HEMOGLOBIN A1C Routine 01/02/2024 10:30 AM EDT from Last 3 Months or Most Recently Relevant to Health Maintenance Results * CBC (07/29/2024 7:04 AM EDT) Only the most recent of2 resultswithin the time period is included. WBC 6.4 3.4 - 10.8 x10E3/uL [facility] RBC 4.44 3.77 - 5.28 x10E6/uL [facility] Hemoglobin 13.5 11.1 - 15.9 g/dL [facility] Hematocrit 41.4 34.0 - 46.6 % [facility] MCV 93 79 - 97 fL [facility] MCH 30.4 26.6 - 33.0 pg [facility] MCHC 32.6 31.5 - 35.7 g/dL [facility] RDW 11.9 11.7 - 15.4 % [facility] Platelets 157 150 - 450 x10E3/uL [facility] Blood (Blood, Venous) 07/29/2024 7:04 AM EDT 07/29/2024 [facility] LAB BLOOD ORDERABLES Final Result Performing Organization Address City/[facility]/ZIP Co de Phone Number [facility]CO [facility] [address] [place] [address] * (ABNORMAL) PTH, intact (07/29/2024 7:04 AM EDT) Only the most recent of2 resultswithin the time period is included. PTH 72(H) 15 - 65 pg/mL [facility] Blood (Blood, Venous) 07/29/2024 7:04 AM EDT 07/29/2024 [facility] LAB BLOOD ORDERABLES Final Result [facility] [address] [place] [address] * (ABNORMAL) Renal function panel (07/29/2024 7:04 AM EDT) Only the most recent of2 resultswithin the time period is included. Glucose 202(H) 70 - 99 mg/dL [facility] BUN 31(H) 8 - 27 mg/dL [facility] Creatinine 1.06(H) 0.57 - 1.00 mg/dL [facility] eGFR CKD-EPI CR 2020 56(L) >59 mL/min/1.7 3 [facility] BUN/Creatinine Ratio 29(H) 12 - 28 [facility] Sodium 140 134 - 144 mmol/L [facility] Potassium 4.6 3.5 - 5.2 mmol/L [facility] Chloride 103 96 - 106 mmol/L [facility] Bicarbonate (CO2) 18(L) 20 - 29 mmol/L [facility] Calcium 10.4(H) 8.7 - 10.3 mg/dL [facility] Albumin 4.1 3.8 - 4.8 g/dL [facility] Phosphorus 3.5 3.0 - 4.3 mg/dL [facility] Blood (Blood, Venous) 07/29/2024 7:04 AM EDT 07/29/2024 Gracia Macdonald [facility] LAB BLOOD ORDERABLES Final Result [facility] [address] [place] [address] * (ABNORMAL) Protein, Total, Random Urine w/Creatinine (Protein/Creat Ratio) (05/06/2024 7:22 AM EST) Creatinine, Ur 56.6 Not Estab. mg/dL [facility] Protein, Ur 135.8 Not Estab. mg/dL [facility] Urine Protein/Creati nine Ratio 2,399(H) 0 - 200 mg/g creat [facility] 05/06/2024 7:22 AM EST 05/06/2024 Gracia Macdonald [facility] LAB URINE ORDERABLES Final Result Performing Organization Address [facility] Co de Phone Number [facility] [address] [place] [address] * (ABNORMAL) Urine Albumin / Creatinine Ratio (05/06/2024 7:22 AM EST) Albumin, Urine 842.6 Not Estab. ug/mL [facility] Comment: Results confirmed on dilution. Albumin/Creatin ine Ratio 1,489(H) 0 - 29 mg/g creat [facility] Comment: ? Normal: ?0 - ??29 ? Moderately increased: 30 - 300 ? Severely increased: ? >300 05/06/2024 7:22 AM EST 05/06/2024 Gracia Macdonald [facility] LAB URINE ORDERABLES Final Result Performing Organization Address [facility] Co de Phone Number [facility] [address] [place] [address] * (ABNORMAL) Vitamin D 25 Hydroxy (05/06/2024 7:22 AM EST) Vitamin D, 25-OH, Total 23.6(L) 30.0 - 100.0 ng/mL [facility] Comment: Vitamin D deficiency has been defined by the [place] of Medicine and an Endocrine Society practice guideline as a level of serum 25-OH vitamin D less than 20 ng/mL (1,2). The Endocrine Society went on to further define vitamin D insufficiency as a level between 21 and 29 ng/mL (2). 1. IOM ([place] of [employer]). 2010. Dietary reference ?? intakes for calcium and D. [place]: The ?? National AcademTrendU Press. 2. Shan MF, Sergio NC, Winter GONZALEZ, et al. ?? Evaluation, treatment, and prevention of vitamin D ?? deficiency: an Endocrine Society clinical practice ?? guideline. JCEM. 2010; 96(7):1911-30. 05/06/2024 7:22 AM EST 05/06/2024 Gracia ALDANA LAB BLOOD ORDERABLES Final Result Performing Organization Address City/[facility]/ZIP Co de Phone Number [facility] [address] [place] [address] * (ABNORMAL) Hemoglobin A1c (01/02/2024 10:30 AM EDT) Hemoglobin A1C 8.0(H) 4.8 - 5.6 % [facility] Comment: ? Prediabetes: 5.7 - 6.4 ? Diabetes: >6.4 ? 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
== END 2024-07-30 12:25 | disposition home or self-care (01) ==
LOC: HO.HMCFM 11:29
PROVIDERS: PCP Physician Assistant Medical; Visit Provider Physician Assistant Medical
DX: R10.9 Unspecified abdominal pain (principal); E11.59 Type 2 diabetes mellitus with other circulatory complications; E21.3 Hyperparathyroidism, unspecified; E05.90 Thyrotoxicosis, unspecified without thyrotoxic crisis or storm; Z95.1 Presence of aortocoronary bypass graft; E53.8 Deficiency of other specified B group vitamins; I25.10 Atherosclerotic heart disease of native coronary artery without angina pectoris; I70.219 Atherosclerosis of native arteries of extremities with intermittent claudication, unspecified extremity; F41.9 Anxiety disorder, unspecified

== ENCOUNTER → 2024-07-30 11:28 | Outpatient (BNVA) | payer MEDICARE, OTHER, SELFPAY | PROVIDERS: PCP Physician Assistant Medical; Visit Provider Physician Assistant Medical | DX: R10.9 Unspecified abdominal pain (principal); E11.59 Type 2 diabetes mellitus with other circulatory complications; E21.3 Hyperparathyroidism, unspecified; E05.90 Thyrotoxicosis, unspecified without thyrotoxic crisis or storm; E53.8 Deficiency of other specified B group vitamins; I25.10 Atherosclerotic heart disease of native coronary artery without angina pectoris; I70.219 Atherosclerosis of native arteries of extremities with intermittent claudication, unspecified extremity; F41.9 Anxiety disorder, unspecified; I10 Essential (primary) hypertension; Z79.899 Other long term (current) drug therapy; Z95.1 Presence of aortocoronary bypass graft | CPT/HCPCS: 96127; 99212 ==

== ENCOUNTER 2024-08-11 10:19 | Day surgery (SDC) | payer MEDICARE, OTHER, SELFPAY ==
[2024-08-11 11:00] VITALS: BMI 25.1
[2024-08-11 11:17] VITALS: BP 170/71; PULSE 60; RESP 18; TEMP 36.6; O2SAT 95
[2024-08-11] MEDS: Lactated Ringers 1,000 ML 100 ML IVCONT (11:18)
--- NOTE | 2024-08-11 11:31 | P.CONAN_ITS ---
[facility] Active Problems Active Problems: All Active Problems Osteopenia (Acute) Neuralgia (Acute) Constipation (Acute) Abdominal pain (Acute) Pruritus (Acute) CKD (chronic kidney disease) (Acute) Hypercalcemia (Acute) Hyperparathyroidism (Acute) Type 2 diabetes mellitus with vascular disease (Acute) Subclinical hyperthyroidism (Acute) Sciatica (Acute) S/P CABG x 3 (Acute) Pneumothorax, left (Acute) Essential hypertension (Acute) Hyperlipidemia (Acute) Hyperkalemia (Acute) Lumbar degenerative disc disease (Acute) Female cystocele (Acute) Colon adenomas (Acute) B12 deficiency (Acute) Coronary artery stenosis (Acute) CAD (coronary artery disease) (Acute) Atherosclerotic PVD with intermittent claudication (Acute) Anxiety (Acute) Past Medical History Medical History Osteopenia Neuralgia Abdominal pain Pruritus CKD (chronic kidney disease) Hypercalcemia Hyperparathyroidism Type 2 diabetes mellitus with vascular disease Subclinical hyperthyroidism Sciatica Pneumothorax, left Essential hypertension Hyperlipidemia Hyperkalemia Lumbar degenerative disc disease Female cystocele Colon adenomas B12 deficiency Coronary artery stenosis CAD (coronary artery disease) Atherosclerotic PVD with intermittent claudication Anxiety Cognitive capacity: good Functional capacity: independent ambulation Patient : No Family History Family History Mother Hyperlipidemia HTN (hypertension) Sister Stroke Brother Chondrosarcoma Prostate cancer Family history of problems with anesthesia: No Surgical History Surgical History History of right-sided carotid endarterectomy History of back surgery S/P CABG x 3 History of Problems with Anesthesia: No Social History Social History Housing: House Alcohol intake: never Patient Tobacco Use Status: Former Tobacco user Cigarette Packs Per Day: 1 Years Smoked: 15 e-Cigarette/Vaping Use: Never Used Second Hand Smoke Exposure: No Use of substances other than those prescribed or required for medical reasons: No Advance Directives: No Advance Directives Information Provided: Yes service: No Current occupational status: retired Cognitive needs: No Hearing needs: No Vision needs: Yes (glasses) Meds Allergies Allergy/AdvReac Type Severity Reaction Status Date / Time atorvastatin Allergy Unknown Muscle Verified 07/30/24 11:52 cramps baclofen Allergy Unknown drowsiness Verified 07/30/24 11:52 Active Medications: Current Medications Lactated Ringer's (Lr) 1,000 mls @ 100 mls/hr IVCONT .Q10H SARAVANAN Last Admin: 08/11/24 11:18 Dose: 100 mls/hr Home Medications ?Medication ?Instructions ?Recorded ?Confirmed ?Last Taken ?Type aspirin 81 mg capsule 81 mg PO DAILY 09/05/23 07/30/24 08/09/24 08:00 History cyanocobalamin (vitamin B-12) 1,000 mcg PO DAILY 09/05/23 07/30/24 Unknown History 1,000 mcg tablet (Vitamin B-12) dapagliflozin propanediol 10 mg 10 mg PO DAILY 09/05/23 07/30/24 Unknown History tablet (Farxiga) insulin aspart U-100 100 unit/mL 12 unit subcut TID 09/05/23 07/30/24 Unknown History subcutaneous solution (Novolog U-100 Insulin aspart) metformin 1,000 mg tablet 1,000 mg PO BID 09/05/23 07/30/24 Unknown History amlodipine 5 mg tablet 10 mg PO DAILY 02/06/24 07/30/24 08/11/24 08:00 History rivaroxaban 2.5 mg tablet (Xarelto) 2.5 mg PO BID 03/30/24 07/30/24 08/08/24 08:00 History gabapentin 100 mg capsule 100 mg PO TID PRN 07/30/24 07/30/24 Unknown History insulin glargine 100 unit/mL (3 10 unit subcut QPM 07/30/24 07/30/24 Unknown History mL) subcutaneous pen (Lantus Solostar U-100 Insulin) lisinopril 20 1 tab PO DAILY 07/30/24 07/30/24 Unknown History mg-hydrochlorothiazide 25 mg tablet Exam Exam Date and Time: august 11, 2024 Height,Weight and Vital Signs: Height 5 ft 11 in Weight 81.647 kg Last Vital Signs Temp 97.9 F 08/11/24 11:17 Pulse 60 08/11/24 11:17 Resp 18 08/11/24 11:17 BP 170/71 H 08/11/24 11:17 Pulse Ox 95 08/11/24 11:17 O2 Del Method Room Air 08/11/24 11:17 Airway Mallampati Class: I TM Dist: >3cm Neck ROM: Full Denture: Upper Partial: Lower Heart: rrr Lungs: cta Other: plan discussed with patient Assessment and Plan Final Anesthetic Review Family History of Problems with Anesthesia: No History of Problems with Anesthesia: No ASA Class: III Final Preanesthetic Review: No Changes in Pt Med Stat, Meds/Allgs Chart Reviewed, Consent Obtained/Reviewed and Anes Risks/Benef Reviewed Patient Risk: Low Procedure Risk: Low Anesthetic Plan Anesthetic Plan: MAC: Disposition: Standard PACU and Extended PACU
--- NOTE | 2024-08-11 11:32 | MHC.SHP ---
Pre-Procedural Eval Section A - 24 Hr Update-Section A only Date of Service: 08/11/24 Section B - Complete if H&P > 30 days Chief Complaint: Hx of polyps Details of Present Illness: Abdominal pain Pruritus CKD (chronic kidney disease) Hypercalcemia Hyperparathyroidism Type 2 diabetes mellitus with vascular disease Subclinical hyperthyroidism Sciatica Pneumothorax, left Essential hypertension Hyperlipidemia Hyperkalemia Lumbar degenerative disc disease Female cystocele Colon adenomas B12 deficiency Coronary artery stenosis CAD (coronary artery disease) Atherosclerotic PVD with intermittent claudication Anxiety Allergies: Allergies Allergy/AdvReac Type Severity Reaction Status Date / Time atorvastatin Allergy Unknown Muscle Verified 07/30/24 11:52 cramps baclofen Allergy Unknown drowsiness Verified 07/30/24 11:52 Review of Systems Review of Systems Comment: Ten point ROS negative Exam Exam Comment: Gen appear: No acute distress HEENT: no icterus Chest: No overt resp distress Abd: soft, nontender, nondistended Psych: Stable affect, answering questions appropriately Neuro: A/Ox3 noted to move all extremities spontaneously Ext: no peripheral edema Plan Diagnosis/Plan: Unchanged I have reviewed the history and physical and performed a pertinent physical examination on my patient. No changes have occurred unless specified. Time Spent With Patient Time: Total time managing care of this patient today ____ minutes.
--- NOTE | 2024-08-11 11:59 | P.OPN-COLO_ITS ---
Colonoscopy Operative Note Operative Note Date of Service: 08/11/24 Narrative: Procedure: Colonoscopy Indication:Personal history of polyps Endoscopist: Kat Valentine MD Anesthesia Provider: Wilmer Abdul CRNA Anesthesia type: MAC Instrument: Olympus [id number]-H190L Consent: Indication, risks vs benefits, and alternatives were discussed with the patient who gave written informed consent to proceed. EKG, pulse, pulse oximetry and blood pressure were monitored throughout the procedure. Please see anesthesia flowsheet. Procedure: The patient was brought to the procedure room and placed in the left lateral decubitus position. IV medications were administered by the anesthesia provider in attendance. A digital rectal exam was performed which was normal. A distal attachment cap was affixed to the tip of the colonoscope which was then inserted through the anus and advanced through the colon to the cecum at 80 cm,and terminal ileum. Appendiceal orifice and ileocecal valve were identified. Mucosa was carefully examined under high definition white light as the instrument was slowly withdrawn in a retrograde panoramic fashion. Retroflexion was performed in rectum. The procedure was not difficult. There were no immediate obvious complications. The quality of the prep was BBPS: 2+2+3 = adequate Withdrawal time 8 minutes. Limitations: No limitations. Findings: Mucosa: Normal to cecum and terminal ileum. Protruding lesions: * Medium internal hemorrhoids without stigmata of recent bleeding. Excavated lesions: * Rare diverticuli of sigmoid colon. Impression: 1. Normal colon and terminal ileum mucosa 2. Diverticulosis 3. Hemorrhoids Recommendations: - Repeat colonoscopy in 10 years if patient in good health
[2024-08-11 12:02] VITALS: BP 129/53; PULSE 63; RESP 12; TEMP 36.4; O2SAT 98
[2024-08-11 12:17] VITALS: BP 157/64; PULSE 54; RESP 18; TEMP 36.4; O2SAT 97
== END 2024-08-11 13:14 | disposition home or self-care (01) ==
PROVIDERS: PCP Physician Assistant Medical; Visit Provider Internal Medicine
PROC: 0DJD8ZZ Inspection of Lower Intestinal Tract, Via Natural or Artificial Opening Endoscopic (ICD-10-PCS; CPT 45378; principal; 2024-08-11 11:30)
DX: Z12.11 Encounter for screening for malignant neoplasm of colon (principal); K57.30 Diverticulosis of large intestine without perforation or abscess without bleeding; K64.8 Other hemorrhoids; Z86.0101 Personal history of adenomatous and serrated colon polyps; E11.9 Type 2 diabetes mellitus without complications; I10 Essential (primary) hypertension; E78.5 Hyperlipidemia, unspecified; I48.0 Paroxysmal atrial fibrillation; K59.00 Constipation, unspecified; Z95.1 Presence of aortocoronary bypass graft; Z87.891 Personal history of nicotine dependence; Z79.82 Long term (current) use of aspirin; Z79.02 Long term (current) use of antithrombotics/antiplatelets; Z79.84 Long term (current) use of oral hypoglycemic drugs; Z79.899 Other long term (current) drug therapy; Z79.01 Long term (current) use of anticoagulants
CPT/HCPCS: G0105

== ENCOUNTER → 2024-08-11 10:19 | Outpatient (BNV) | payer MEDICARE, OTHER, SELFPAY | PROVIDERS: PCP Physician Assistant Medical; Visit Provider Internal Medicine | DX: Z12.11 Encounter for screening for malignant neoplasm of colon (principal); Z86.0100 Personal history of colon polyps, unspecified; K64.8 Other hemorrhoids; K57.30 Diverticulosis of large intestine without perforation or abscess without bleeding | CPT/HCPCS: G0105 ==

== ENCOUNTER 2024-09-28 11:30 | Outpatient (AMB) | payer MEDICARE, OTHER, SELFPAY ==
--- NOTE | 2024-09-28 11:33 | A.OFFPC_ITS ---
Vital Signs 09/28/24 11:37 Height 5 ft 11 in Weight 180 lb 2 oz BMI 25.1 BP 130/72 Blood Pressure Location Lt brachial Position Sitting Pulse 68 Pulse Source Pulse Oximeter Temp 97.5 F Temp Source Temporal Artery Scan Pulse Oximetry (%) 95 Oxygen Delivery Method Room Air Intake Visit Reasons: side pain on R breast Intake Note: Marcel presents in the office for right sided breast pain. Started underneath the right breast and is now radiating up her side. Allergies atorvastatin Allergy (Unknown, Verified 09/28/24 11:35) Muscle cramps baclofen Allergy (Unknown, Verified 09/28/24 11:35) drowsiness Medication List - Last Reconciled 09/28/24 by JAZ Krishna amlodipine 10 mg PO DAILY aspirin 81 mg PO DAILY camphor-menthol 0.5-0.5 % (Sarna Original) 1 appl topical BID-TID PRN carvedilol 25 mg PO BID cyanocobalamin (vitamin B-12) (Vitamin B-12) 1,000 mcg PO DAILY dapagliflozin propanediol (Farxiga) 10 mg PO DAILY ezetimibe (Zetia) 10 mg PO DAILY flash glucose sensor (FreeStyle Bob 2 Sensor kit) As directed gabapentin 100 mg PO TID PRN insulin aspart U-100 (Novolog U-100 Insulin aspart) 12 units subcut TID insulin glargine (Lantus Solostar U-100 Insulin) 8 units subcut QPM lisinopril-hydrochlorothiazide 20-25 mg 1 tab PO DAILY lorazepam 0.5 mg PO DAILY PRN metformin 1,000 mg PO BID pantoprazole 40 mg PO ONCE polyethylene glycol 3350 (Miralax) 17 grams PO BID 3 days pravastatin 80 mg PO BEDTIME 14 days rivaroxaban (Xarelto) 2.5 mg PO BID Tobacco use date assessed: 09/28/24 Dental Screening Dental Screen Date: 09/28/24 Did you have a dental visit in the last 12 months?: No Did you have a dental problem in the last 6 months where you did not have access to dental care?: No Was dental information given to patient?: Patient has dentist HPI HPI Comments History of Present Illness Details 69-year-old female with a past medical h istory of osteopenia, CKD, type 2 diabetes, coronary artery disease and anxiety presents for evaluation of breast pain. Patient endorses right breast pain for a week. Severity is 4 to a 5/10. She describes it as sensitive and sore. Denies rashes, fevers, chills. Denies palpable lumps. Denies family history of breast cancer. She had a negative mammogram in March 2024. Denies history of breast biopsy. Denies trauma. ROS: Constitutional: No unexplained weight loss, fever, chills, fatigue or night sweats. Skin: No rash Physical exam: Constitutional: Alert, in no distress. Lymph nodes: No supraclavicular or cervical adenopathy. Respiratory: Clear to auscultation. Cardiovascular: S1 S2 regular. No murmurs. Breast: Declined communications controller. No nipple discharge, erythema or visible rashes. No axillary adenopathy bilaterally. There is an approximately 1 cm firm lump in the left breast at 07:00 and the right breast is tender between 6 and 08:00. There is no palpable mass in the right breast. [facility] Medical History (Updated 09/28/24 @ 13:39 by JAZ Krishna) Left breast lump Breast pain, right Osteopenia Neuralgia Abdominal pain Pruritus CKD (chronic kidney disease) Hypercalcemia Hyperparathyroidism Type 2 diabetes mellitus with vascular disease Subclinical hyperthyroidism Sciatica Pneumothorax, left Essential hypertension Hyperlipidemia Hyperkalemia Lumbar degenerative disc disease Female cystocele Colon adenomas B12 deficiency Coronary artery stenosis CAD (coronary artery disease) Atherosclerotic PVD with intermittent claudication Anxiety Surgical History History of right-sided carotid endarterectomy History of back surgery S/P CABG x 3 Family History Mother Hyperlipidemia HTN (hypertension) Sister Stroke Brother Chondrosarcoma Prostate cancer Social History (Updated 09/28/24 @ 11:37 by Kathy Flores MA) Housing: House Alcohol intake: never Patient Tobacco Use Status: Former Tobacco user Cigarette Packs Per Day: 1 Years Smoked: 15 Packs Per Year: 15 e-Cigarette/Vaping Use: Never Used Second Hand Smoke Exposure: No Use of substances other than those prescribed or required for medical reasons: No service: No Current occupational status: retired Cognitive needs: No Hearing needs: No Vision needs: Yes (glasses) Questionnaire Thrive Questionnaire Date Thrive assessed: 03/26/24 I am a: Patient What is your living situation today?: I have a steady place to live Within the past 12 months, did the food you bought not last and you didn't have the money to get more?: I choose not to answer this question Within the past 12 months, did you worry whether your food would run out before you got money to buy more?: I choose not to answer this question Do you have trouble paying for medicines?: No Do you have trouble getting transportation to medical appointments?: No Do you have trouble paying your heating and electricity bill?: I choose not to answer this question Do you have trouble taking care of your child, family member or friend?: No Do you have trouble with day-to-day activities such as bathing, preparing meals, shopping, managing finances, etc.?: No Are you currently unemployed and looking for a job?: No Are you interested in more education?: No Please select the resources that you would like help with: None Currently or been in a relationship where the following occur: No concerns reported THRIVE Score: 0 CANDE-7 AMB Questionnaire CANDE-7 Date CANDE - 7 assessed: 07/30/24 Source: Developed by Drs. Mohit Villagomez, Alpa Clark, Aiden Pearson and colleagues, with an educational jamey from [employer]. Physical exam (Primary Care) Vital Signs: Last Vital Signs Temp 97.5 F 09/28/24 11:37 Pulse 68 09/28/24 11:37 BP 130/72 09/28/24 11:37 Pulse Ox 95 09/28/24 11:37 Oxygen Delivery Method Room Air 09/28/24 11:37 BMI result Body Mass Index 25.1 Tobacco/Smoking Status: Tobacco use Status Tobacco use date assessed 09/28/24 09/28/24 11:39 Patient Tobacco Use Status Former Tobacco user 09/28/24 11:37 e-Cigarette/Vaping Use Never Used 09/28/24 11:37 Thrive Assessment: Date of Thrive Assessment Date Thrive assessed 03/26/24 09/28/24 11:34 Currently or been in a relationship where the following occur: No concerns reported Coding Level of Care Code Est Pt Level 4 (30397) Complex EM visit Add On G2211 Diagnoses Breast pain, right N64.4 Mass of lower inner quadrant of left breast N63.24 Breast mass location: lower inner quadrant Assessment & Plan Assessment & Plan (1) Breast pain, right: Code(s): N64.4 - Mastodynia Category: Medical (2) Left breast lump: Code(s): N63.20 - Unspecified lump in the left breast, unspecified quadrant Category: Medical Qualifiers: Breast mass location: lower inner quadrant Qualified Code(s): N63.24 - Unspecified lump in the left breast, lower inner quadrant Plan Reviewed differential with the patient. She is agreeable to targeted breast ultrasound of the right and left breast and bilateral diagnostic mammogram. We will fax the order to [facility] in [place] where she had prior imaging. She was instructed to call if she does not hear about scheduling this within the next 14 business days. Orders: Orders US breast RT limited Today JAZ Krishna N64.4 - Mastodynia US breast LT limited Today JAZ Krishna N63.20 - Unspecified lump in the left breast, unspecified quadrant MM diagnostic mammo BI Today JAZ Krishna N63.20 - Unspecified lump in the left breast, unspecified quadrant, N64.4 - Mastodynia Medications: Changed From pantoprazole 40 mg PO BID 180 tabs 0RF To pantoprazole 40 mg PO ONCE Kat Valentine MD
[2024-09-28 11:37] VITALS: BP 130/72; PULSE 68; TEMP 36.4; O2SAT 95; BMI 25.1
--- OUTSIDE RECORDS SUMMARY | 2024-09-28 12:40 | XMS_ITS | Encounter Summary ---
Author Organization [facility] Address [address] [place] [address] Care Team Providers Care Bee Breeder Name Role Phone Dana Polo Primary Care Provider [phone] Reason for Visit * Reason Onset Date Comments Abdominal Pain 02/04/2024 Encounter Details Date Type Department Care Team (Late st Contact Info) Description 02/04/2024 Nurse Triage [facility] [address] [place] [address] Dana Polo PA [address] [place] [id number] Social History Tobacco Use Types Packs/Day Years [...] was her PCP prior to her joining [facility]. Adivised to return to ED but refuses [...] documented in this encounter Plan of Treatment Not on file documented as of this encounter Visit Diagnoses Not on filedocumented in this encounter Care Teams Bee Breeder Relationship Specialty Start Date End Date Dana Polo PA [address] [place] [address] PCP - General General Medicine 12/09/23 documented as of this encounter
--- OUTSIDE RECORDS SUMMARY | 2024-09-28 12:40 | XMS_ITS | Clinical Summary ---
Author Organization [facility] Address [address] [address] Phone Care Team Providers Care Welding Supervisor Name Role Phone Dana Polo PA-C Primary Care Provider [phone] Allergies Active Allergy Reactions Criticality Noted Date [...] Cholecalciferol (Vitamin D3) 50 MCG (1999 UT) tabletIndication s:Stage 3a chronic kidney disease (HCC),Vitamin D deficiency, not otherwise specified Take 2,000 Units by mouth 1 (one) time each day 90 tablet 3 5 05/20/19 26 Active Dapagliflozin Propanediol (Farxiga) 10 MG tabletIndication s:Chronic kidney disease, stage 2 (mild),Type 2 diabetes mellitus with diabetic chronic kidney disease (HCC),Persistent proteinuria Take 10 mg by mouth 1 (one) time each day 90 tablet 3 5 Active lisinopril-hydro CHLOROthiazide (PRINZIDE,ZESTOR ETIC) 20-25 MG per tablet Take 1 tablet by mouth 1 (one) time each day 30 tablet 5 Active Active Problems Problem Noted Date Diagnosed Date Stage 3a chronic kidney disease 01/29/2024 Primary hyperparathyroidism 01/29/2024 Proteinuria 11/04/2020 Anxiety 11/04/2020 Atherosclerotic heart diseas e of [place] coronary artery with angina pectoris 11/04/2020 Adenoma [...] Orders Only [facility] [address] [phone] Gracia Macdonald ARNP Stage 3a chronic kidney disease (HCC); Hypertension; Persistent proteinuria; Primary hyperparathyroidism (HCC) 07/10/2024 Refill [facility] [address] [phone] Danyel Valente from Last 3 Months Family History Medical [...] Care Team (Late st Contact Info) Description 10/16/2024 Orders Only [facility] [address] [phone] Gracia Macdonald ARNP [address] [phone] Stage 3a chronic kidney disease (HCC); Hypertension; Persistent proteinuria; Vitamin D deficiency, not otherwise specified 11/19/2024 11:45 AM EDT Office Visit [facility] [address] [phone] Gracia Macdonald ARNP [address] [phone] Health Maintenance Due Date Last Done Comments Breast Cancer Screening 1955 Colorectal Cancer Screening: Annual FOBT 2002 Colorectal Cancer Screening: Colonoscopy 2002 Colorectal Cancer Screening: Sigmoidoscopy 2002 Pneumococcal Vaccine: 50+ Years (2 of 2 - PPSV23, PCV20, or PCV21) 05/04/2016 03/09/2016 Diabetes: Ophthalmology Exam 11/04/2020 Diabetes: Pedal Pulse Checked 11/04/2020 Diabetes: Sensory Foot Exam 11/04/2020 Diabetes: Visual Foot Exam 11/04/2020 Diabetes: Hemoglobin A1C 04/03/2024 024, 11/20/2023, 06/18/2022, Additional history exists Influenza Vaccine (#1) 2024 , 01/20/2019, 12/14/2016 Pneumococcal Vaccine: Peds (0 to [...] (HCC) Hypertension Persistent proteinuria Primary hyperparathyroidism (HCC) HEMOGLOBIN A1C Routine 01/02/2024 10:30 AM EDT from Last 3 Months or Most Recently Relevant to Health Maintenance Results * (ABNORMAL) Urine Protein / creatinine ratio (07/29/2024 7:04 AM EDT) Creatinine, Ur 51.9 Not Estab. mg/dL [facility] Protein, Ur 57.2 Not Estab. mg/dL [facility] Urine Protein/Creati nine Ratio 1,102(H) 0 - 200 mg/g creat [facility] Urine specimen (specimen) Urine specimen obtained by clean catch procedure / Unknown 07/29/2024 7:04 AM EDT 07/29/2024 Gracia Macdonald [facility] LAB URINE ORDERABLES Final Result Performing Organization Address City/[facility]/ZIP Co de Phone Number [facility] [address] [place] [address] * (ABNORMAL) Urine Albumin / Creatinine Ratio (07/29/2024 7:04 AM EDT) Albumin, Urine 318.0 Not Estab. ug/mL [facility] Albumin/Creatin ine Ratio 613(H) 0 - 29 mg/g creat [facility] Comment: Normal: 0 - 29 Moderately increased: 30 - 300 Severely increased: >300 Urine specimen (specimen) Urine specimen obtained by clean catch procedure / Unknown 07/29/2024 7:04 AM EDT 07/29/2024 Gracia Chideo [facility] LAB URINE ORDERABLES Final Result [facility] [address] [place] [address] * Vitamin D 1,25 dihydroxy (07/29/2024 7:04 AM EDT) Pathologist [facility] Vitamin D, 1,25-Dihydroxy 33.5 24.8 - 81.5 pg/mL [facility] Blood specimen (specimen) Venous blood / Unknown 07/29/2024 7:04 AM EDT 07/29/2024 [facility] BLOOD ORDERAB[facility] Final Result [facility] [address] [place] [address] * CBC (07/29/2024 7:04 AM EDT) Pathologist [facility] WBC 6.4 3.4 - 10.8 x10E3/uL [facility] RBC 4.44 3.77 - 5.28 x10E6/uL [facility] Hemoglobin 13.5 11.1 - 15.9 g/dL [facility] Hematocrit 41.4 34.0 - 46.6 % [facility] MCV 93 79 - 97 fL [facility] MCH 30.4 26.6 - 33.0 pg [facility] MCHC 32.6 31.5 - 35.7 g/dL [facility] RDW 11.9 11.7 - 15.4 % [facility] Platelets 157 150 - 450 x10E3/uL [facility] Blood specimen (specimen) Venous blood / Unknown 07/29/2024 7:04 AM EDT 07/29/2024 Gracia [facility] LAB BLOOD ORDERABLES Final Result [facility] [address] [place] [address] * (ABNORMAL) PTH, intact (07/29/2024 7:04 AM EDT) PTH 72(H) 15 - 65 pg/mL [facility] Blood specimen (specimen) Venous blood / Unknown 07/29/2024 7:04 AM EDT 07/29/2024 Gracia Macdonald [facility] LAB BLOOD ORDERABLES Final Result [facility] [address] [place] [address] * (ABNORMAL) Renal function panel (07/29/2024 7:04 AM EDT) Glucose 202(H) 70 - 99 mg/dL [facility] BUN 31(H) 8 - 27 mg/dL [facility] Creatinine 1.06(H) 0.57 - 1.00 mg/dL [facility] eGFR CKD-EPI CR 2020 56(L) >59 mL/min/1.7 3 [facility] BUN/Creatinine Ratio 29(H) 12 - 28 [facility] Sodium 140 134 - 144 mmol/L [facility] Potassium 4.6 3.5 - 5.2 mmol/L [facility] Chloride 103 96 - 106 mmol/L [facility] Bicarbonate (CO2) 18(L) 20 - 29 mmol/L [facility] Calcium 10.4(H) 8.7 - 10.3 mg/dL [facility] Albumin 4.1 3.8 - 4.8 g/dL [facility] Phosphorus 3.5 3.0 - 4.3 mg/dL [facility] Blood specimen (specimen) Venous blood / Unknown 07/29/2024 7:04 AM EDT 07/29/2024 Gracia Torres [facility] LAB BLOOD ORDERABLES Final Result [email or web address] [address] [place] [address] * (ABNORMAL) Hemoglobin A1c (01/02/2024 10:30 AM EDT) Hemoglobin A1C 8.0(H) 4.8 - 5.6 % [facility] Comment: Prediabetes: 5.7 - 6.4 Diabetes: >6.4 Glycemic control for adults with diabetes: <7.0 01/02/2024 10:3 0 AM EDT 01/02/2024 Daquan Sykes MD LAB BLOOD ORDERABLES Anita l Result [facility] [address] [place] [address] from Last 3 Months or Most Recently Relevant to Health Maintenance Insurance Medicare [facility] Medicare [facility] Care Teams Welding Supervisor Relationship Specialty Start Date End Date Dana Polo PA-C [address] [place] [address] PCP - General Internal Medicine 01/29/24
== END 2024-09-28 12:54 | disposition home or self-care (01) ==
LOC: HO.HMCFM 11:31
PROVIDERS: PCP Physician Assistant Medical; Visit Provider Physician Assistant Medical
DX: N64.4 Mastodynia (principal); N63.24 Unspecified lump in the left breast, lower inner quadrant

== ENCOUNTER → 2024-09-28 11:30 | Outpatient (BNVA) | payer MEDICARE, OTHER, SELFPAY | PROVIDERS: PCP Physician Assistant Medical; Visit Provider Physician Assistant Medical | DX: N64.4 Mastodynia (principal); N63.24 Unspecified lump in the left breast, lower inner quadrant | CPT/HCPCS: 99212 ==

== ENCOUNTER 2024-12-03 11:22 | Outpatient (AMB) | payer MEDICARE, OTHER, SELFPAY ==
--- NOTE | 2024-12-03 11:36 | A.OFFPC_ITS ---
Vital Signs 12/03/24 11:42 12/03/24 11:43 Height 5 ft 11 in 5 ft 11 in Weight 180 lb 6 oz 180 lb 6 oz BMI 25.2 25.2 BP 116/72 Blood Pressure Location Rt brachial Position Sitting Respiration 16 Pulse 65 Pulse Source Pulse Oximeter Temp 97.5 F Temp Source Temporal Artery Scan Pulse Oximetry (%) 97 Oxygen Delivery Method Room Air Intake Visit Reasons: med follow up Intake Note: Marcel presents in the office for a medication follow up. Allergies atorvastatin Allergy (Unknown, Verified 12/03/24 11:38) Muscle cramps baclofen Allergy (Unknown, Verified 12/03/24 11:38) drowsiness Medication List - Last Reconciled 12/04/24 by JAZ Krishna amlodipine 10 mg (2 x 5 mg) PO DAILY aspirin 81 mg PO DAILY camphor-menthol 0.5-0.5 % (Sarna Original) 1 appl topical BID-TID PRN carvedilol 25 mg PO BID cyanocobalamin (vitamin B-12) (Vitamin B-12) 1,000 mcg PO DAILY dapagliflozin propanediol (Farxiga) 10 mg PO DAILY ezetimibe (Zetia) 10 mg PO DAILY flash glucose sensor (FreeStyle Bob 2 Sensor kit) As directed insulin aspart U-100 (Novolog U-100 Insulin aspart) 0.16 units subcut TID insulin glargine (Lantus Solostar U-100 Insulin) 8 units subcut QPM lisinopril-hydrochlorothiazide 20-25 mg 1 tab PO DAILY lorazepam 0.5 mg PO DAILY PRN metformin 1,000 mg PO BID pantoprazole 40 mg PO ONCE polyethylene glycol 3350 (Miralax) 17 grams PO BID 3 days pravastatin 80 mg PO BEDTIME 14 days rivaroxaban (Xarelto) 2.5 mg PO BID tramadol 50 mg PO Q8H PRN Tobacco use date assessed: 12/03/24 Dental Screening Dental Screen Date: 12/03/24 Did you have a dental visit in the last 12 months?: No Did you have a dental problem in the last 6 months where you did not have access to dental care?: No Was dental information given to patient?: Patient declined HPI HPI Comments History of Present Illness Details This is a 69-year-old female with a past medical history of coronary artery disease, peripheral arterial disease, hyperlipidemia, hypertension and type 2 diabetes presenting for follow up. Cardiovascular-followed by cardiology, Dr. Fernández. Compliant with medications. Denies chest pain or shortness of breath. History of right carotid endarterectomy. She left-sided carotid artery stenosis which is being monitored. Followed at [facility] vascular. Endocrine- Dr. Christie for hyperparathyroidism and diabetes. She checks her glucose readings at home. She has had occasional lows in the 60s overnight. She does not have symptoms, but her Bob 3 alerts her. She has an eye exam yearly with Dr. Angel. She is followed by Nephrology for CKD. She has chronic knee and back pain treated with physical therapy. She has taken Zanaflex muscle relaxant as needed in the past. She is seen Podiatry for a right heel spur for which she received cortisone injections. She uses lorazepam 0.5 mg daily as needed for anxiety. She saw me for evaluation of right breast pain in September of 2024. Breast pain has since resolved completely. She had a mammogram and ultrasound on 10/29/2024 which showed no evidence of malignancy in either breast and no sonographic explanation for the right breast pain. She had a negative colonoscopy 08/11/24 and was advised to repeat this in 10 years. She is being treated with pantoprazole 40 mg daily. She endorses cramping in her legs intermittently that bothers her at night. When she has mustard or applies a heating pad it helps. ROS: Constitutional: No unexplained weight loss, fever, chills or night sweats. Eyes: No vision change Respiratory: No shortness of breath, cough or sputum production. Cardiovascular: No chest pain, chest pressure or chest discomfort. No palpitations or pedal edema. Gastrointestinal: No anorexia, nausea, vomiting or diarrhea. No abdominal pain or blood in stool. Neurologic: No headache, dizziness, syncope Skin: No rash Physical exam: Constitutional: Alert, in no distress. Neck: Supple, Full range of motion. No lymphadenopathy. Respiratory: Clear to auscultation. Cardiovascular: S1 S2 regular. No murmurs. Extremities: Warm and well perfused. No clubbing, cyanosis or edema. Psychiatric: Normal mood and affect Feet: Warm and well perfused, no clubbing, cyanosis or edema. Intact DP pulses. No open wounds. PFSH Medical History (Updated 12/04/24 @ 11:13 by JAZ Krishna) Leg cramps Carotid artery stenosis Left breast lump Breast pain, right Osteopenia Neuralgia Abdominal pain Pruritus CKD (chronic kidney disease) Hypercalcemia Hyperparathyroidism Type 2 diabetes mellitus with vascular disease Subclinical hyperthyroidism Sciatica Pneumothorax, left Essential hypertension Hyperlipidemia Hyperkalemia Lumbar degenerative disc disease Female cystocele Colon adenomas B12 deficiency Coronary artery stenosis CAD (coronary artery disease) Atherosclerotic PVD with intermittent claudication Anxiety Surgical History History of right-sided carotid endarterectomy History of back surgery S/P CABG x 3 Family History Mother Hyperlipidemia HTN (hypertension) Sister Stroke Brother Chondrosarcoma Prostate cancer Social History (Updated 12/03/24 @ 11:40 by Kathy Flores CMA) Housing: House Alcohol intake: never Patient Tobacco Use Status: Former Tobacco user Cigarette Packs Per Day: 1 Years Smoked: 15 e-Cigarette/Vaping Use: Never Used Second Hand Smoke Exposure: No service: No Current occupational status: retired Cognitive needs: No Hearing needs: No Vision needs: Yes (glasses) Questionnaire Thrive Questionnaire Date Thrive assessed: 03/26/24 I am a: Patient What is your living situation today?: I have a steady place to live Within the past 12 months, did the food you bought not last and you didn't have the money to get more?: I choose not to answer this question Within the past 12 months, did you worry whether your food would run out before you got money to buy more?: I choose not to answer this question Do you have trouble paying for medicines?: No Do you have trouble getting transportation to medical appointments?: No Do you have trouble paying your heating and electricity bill?: I choose not to answer this question Do you have trouble taking care of your child, family member or friend?: No Do you have trouble with day-to-day activities such as bathing, preparing meals, shopping, managing finances, etc.?: No Are you currently unemployed and looking for a job?: No Are you interested in more education?: No Please select the resources that you would like help with: None Currently or been in a relationship where the following occur: No concerns reported THRIVE Score: 0 CANDE-7 AMB Questionnaire CANDE-7 Date CANDE - 7 assessed: 07/30/24 Source: Developed by Drs. Mohit Villagomez, Alpa Clark, Aiden Pearson and colleagues, with an educational jamey from [employer]. Physical exam (Primary Care) Vital Signs: Last Vital Signs Temp 97.5 F 12/03/24 11:42 Pulse 65 12/03/24 11:42 Resp 16 12/03/24 11:42 BP 116/72 12/03/24 11:42 Pulse Ox 97 12/03/24 11:42 Oxygen Delivery Method Room Air 12/03/24 11:42 BMI result Body Mass Index 25.2 Tobacco/Smoking Status: Tobacco use Status Tobacco use date assessed 12/03/24 12/03/24 11:42 Patient Tobacco Use Status Former Tobacco user 12/03/24 11:40 e-Cigarette/Vaping Use Never Used 12/03/24 11:40 Thrive Assessment: Date of Thrive Assessment Date Thrive assessed 03/26/24 12/03/24 11:37 Currently or been in a relationship where the following occur: No concerns reported Coding Level of Care Code Est Pt Level 4 (53276) Complex EM visit Add On G2211 Diagnoses Anxiety F41.9 Essential hypertension I10 Coronary artery disease involving [place] coronary artery of [place] heart without angina pectoris I25.10 Coronary Disease-Associated Artery/Lesion type: [place] artery [place] vs. transplanted heart: [place] heart Associated angina: without angina Atherosclerotic PVD with intermittent claudication I70.219 Carotid artery stenosis I65.29 Pure hypercholesterolemia E78.00 Hyperlipidemia type: pure hypercholesterolemia Type 2 diabetes mellitus with vascular disease E11.59 Subclinical hyperthyroidism E05.90 Hyperparathyroidism E21.3 Colon adenomas D12.6 CKD (chronic kidney disease) N18.9 Leg cramps R25.2 Assessment & Plan Assessment & Plan (1) Anxiety: Code(s): F41.9 - Anxiety disorder, unspecified Category: Medical Plan: Continue lorazepam as needed. I reminded the patient this is a controlled substance which is habit forming and causes sedation. Do not drive, drink alcohol or operate heavy machinery on this medication. (2) Essential hypertension: Code(s): I10 - Essential (primary) hypertension Category: Medical Plan: Normotensive. Continue current regimen. Recommended low-sodium diet and avoidance of caffeine. (3) CAD (coronary artery disease): Code(s): I25.10 - Atherosclerotic heart disease of [place] coronary artery without angina pectoris Category: Medical Qualifiers: Coronary Disease-Associated Artery/Lesion type: [place] artery [place] vs. transplanted heart: [place] heart Associated angina: without angina Qualified Code(s): I25.10 - Atherosclerotic heart disease of [place] coronary artery without angina pectoris Plan: Followed by Cardiology and vascular surgery. Continue Xarelto, pravastatin (intolerant to atorvastatin), lisinopril-hydrochlorothiazide, Zetia, carvedilol, baby aspirin. (4) Atherosclerotic PVD with intermittent claudication: Code(s): I70.219 - Atherosclerosis of [place] arteries of extremities with intermittent claudication, unspecified extremity Category: Medical Plan: Followed by vascular surgery. (5) Carotid artery stenosis: Code(s): I65.29 - Occlusion and stenosis of unspecified carotid artery Category: Medical Plan: Followed by vascular surgery. (6) Hyperlipidemia: Code(s): E78.5 - Hyperlipidemia, unspecified Category: Medical Qualifiers: Hyperlipidemia type: pure hypercholesterolemia Qualified Code(s): E78.00 - Pure hypercholesterolemia, unspecified Plan: LDL goal less than 70. Recommended Mediterranean diet. Continue statin and Zetia. Check labs. (7) Type 2 diabetes mellitus with vascular disease: Code(s): E11.59 - Type 2 diabetes mellitus with other circulatory complications Category: Medical Plan: A follow up scheduled with endocrinology. Check hemoglobin A1c. Continue current regimen. Reviewed treatment of low blood sugars and diabetic diet. (8) Subclinical hyperthyroidism: Code(s): E05.90 - Thyrotoxicosis, unspecified without thyrotoxic crisis or storm Category: Medical Plan: Followed by endocrinology. (9) Hyperparathyroidism: Code(s): E21.3 - Hyperparathyroidism, unspecified Category: Medical Plan: Followed by endocrinology. (10) Colon adenomas: Code(s): D12.6 - Benign neoplasm of colon, unspecified Category: Medical Plan: Repeat colonoscopy recommended in 2034. (11) CKD (chronic kidney disease): Code(s): N18.9 - Chronic kidney disease, unspecified Category: Medical Plan: Followed by Nephrology. Avoid nephrotoxic medications. Blood pressure is well- controlled. (12) Leg cramps: Code(s): R25.2 - Cramp and spasm Category: Medical Plan: Check labs. Recommended staying well hydrated and having a electrolyte beverage before bedtime like Pedialyte or Gatorade Zero. Plan Follow up in 6 months. Orders: Orders Magnesium 12/03/24 E11.59 - Type 2 diabetes mellitus with other circulatory complications, I10 - Essential (primary) hypertension Basic Metabolic Panel 12/03/24 E11.59 - Type 2 diabetes mellitus with other circulatory complications, I10 - Essential (primary) hypertension Hemoglobin A1c 12/03/24 E11.59 - Type 2 diabetes mellitus with other circulatory complications, I10 - Essential (primary) hypertension, R73.9 - Hyperglycemia, unspecified Medications: New pantoprazole 40 mg PO ONCE 90 tabs 3RF amlodipine 10 mg (2 x 5 mg) PO DAILY 90 tabs 3RF Refilled lorazepam 0.5 mg PO DAILY PRN 30 tabs 0RF anxiety
[2024-12-03 11:42] VITALS: BP 116/72; PULSE 65; RESP 16; TEMP 36.4; O2SAT 97; BMI 25.2
[2024-12-03 11:43] VITALS: BMI 25.2
--- OUTSIDE RECORDS SUMMARY | 2024-12-03 13:38 | XMS_ITS | Encounter Summary ---
Author Organization [facility] Address [address] [place] [phone] Phone Care Team Providers Care Dramatic Art Teacher Name Role Phone Daquan Sykes MD Unavailable [phone] Dana Polo Primary Care Provide r Reason for Visit * Reason Onset Date Comments Medication Refill 10/23/2024 Encounter Details Date Type Department Care Team (Late st Contact Info) Description 10/23/2024 Telephone [facility] [address] [place] [address] Elisabeth West PA-C [address] [place] [address] [email or web address] Medication Refill Social History Tobacco Use Types Packs/Day Years Used Date Smoking Tobacco: Former Cigarettes 1.5 30 1 975 - 2005 Passive Smoke Exposure: Past Smokeless Tobacco: Never Alcohol Use Standard Drinks/Week Comments Not Currently 0 (1 standard drink = 0.6 oz pur e alcohol) Education Answer Date Recorded Are you interested in more education? Not on edmond e 07/13/2022 Are you concerned about learning? Not on file 07/13/2022 No 07/13/2022 No 07/13/2022 Digital Access Answer Date Recorded No 08/13/2022 No 08/13/2022 Reliable internet access at home? Not on file 08/13/2022 Device with a working camera? Not on file 05 / Comments Unknown Sex and Gender Information Value Date Recorded Sex Assigned at Not on file Legal Sex Female 10:36 PM EDT Gender Identity Not on file Sexual Orientation Not on file documented as of this encounter Progress Notes * Linda Pizarro - 10/23/2024 10:08 AM EDT Patient requesting a refill of RX FREESTYLE MELISSA 2 SENSORS, not PLUS documented in this encounter Plan of Treatment Upcoming Encounters Date Type Department Care Team (Late st Contact Info) Description 12/14/2024 11:00 AM EDT Office Visit [facility] [address] [place] [address] Maribel Christie MD [address] [place] [phone] 04/07/2025 11:20 AM EST Office Visit [facility] [address] [place] [address] Maribel Christie MD [address] [place] [phone] documented as of this encounter Visit Diagnoses Not on filedocumented in this encounter Care Teams Dramatic Art Teacher Relationship Specialty Start Date End Date Dana Polo PA [address] [place] [phone] PCP - General Physician Director Regulatory Agency 12/24/23 Daquan Sykes MD [address] [place] [phone] Nephrology 11/21/22 documented as of this encounter Additional Source Comments The information contained in this document represents components of the legal health record. It is not the complete legal health record.[facility]
--- OUTSIDE RECORDS SUMMARY | 2024-12-03 13:38 | XMS_ITS | Clinical Summary ---
Author Organization [facility] Address [address] [place] [address] Care Team Providers Care Bedspread Cutter Name Role Phone Dana Polo Primary Care Provider [phone] Social History Tobacco Use Types Packs/Day Years Used Date Smoking Tobacco: Never Assessed Comments Unknown Sex and Gender Information Value Date Recorded Sex Assigned at Not on file Legal Sex Female 3:16 PM EDT Gender Identity Not on file Sexual Orientation Not on file Plan of Treatment Health Maintenance Due Date Last Done Comments Advance Care Planning 1955 Hepatitis C Virus Screening 1955 DTaP/Tdap/Td Vaccines (1 - Tdap) 1972 Mammogram 1993 Colonoscopy 1998 Pneumococcal Vaccines 50+ (1 of 1 - PCV) 2003 Zoster (Shingles) Vaccine (1 of 2) 2003 RSV Vaccine 60 years and older and Patients (1 - Risk 60-74 years 1-dose series) 2013 DXA Bone Density (Females,Ages 65 and older) 2018 Influenza Vaccine 10/16/2024 12/24/2022, , 12/20/2020, Additional history exists COVID-19 Vaccine (2024- season) 2024 08/07/2021, 01/12/2021, 06/23/2020, Additional history exists Hepatitis B Vaccines Aged Out No long er eligible based on patient's age to complete this topic Insurance MEDICARE PART A & B [facility] MEDICARE PART A & B [facility] Care Teams Bedspread Cutter Relationship Specialty Start Date End Date Dana Polo PA [address] [place] [phone] PCP - General General Medicine 12/09/23
--- OUTSIDE RECORDS SUMMARY | 2024-12-03 13:38 | XMS_ITS | Clinical Summary ---
Author Organization [facility] Address [address] [address] Phone Care Team Providers Care Slip Sheeter Name Role Phone Dana Polo PA-C Primary Care Provider [phone] Allergies Active Allergy Reactions Criticality Noted Date [...] time each day 30 tablet 5 Active Insulin Aspart FlexPen 100 UNIT/ML solution pen-injector Inject 12-20 Units under the skin in the morning and 12-20 Units at noon and 12-20 Units in the evening. 4 Active Active Problems Problem Noted Date Diagnosed Date Vitamin D deficiency, not otherwise specified Stage 3a chronic kidney disease 01/29/2024 Primary hyperparathyroidism 01/29/2024 Proteinuria 11/04/2020 Anxiety 11/04/2020 Atherosclerotic heart diseas e of [place] coronary artery with angina pectoris 11/04/2020 Adenoma [...] Encounters Date Type Department Care Team Description 11/19/2024 11:45 AM EDT Office Visit [facility] [address] [place] [phone] Gracia Macdonald ARNP Stage 3a chronic kidney disease (HCC) (Primary Dx); Hypertension; Persistent proteinuria; Primary hyperparathyroidism (HCC); Vitamin D deficiency, not otherwise specified 10/16/2024 Orders Only [facility] [address] [address] Gracia Macdonald ARNP Stage 3a chronic kidney disease (HCC); Hypertension; Persistent proteinuria; Vitamin D deficiency, not otherwise specified from Last 3 Months Family History Medical [...] Sign Reading Time Taken Comments Blood Pressure 120/52 11/19/2024 11:53 AM EDT Pulse 73 11/19/2024 11:45 AM EDT Temperature - - Respiratory Rate - - Oxygen Saturation 95% 11/19/2024 11:45 AM EDT Inhaled Oxygen Concentration - - Weight 83.6 kg (184 lb 6.4 oz) 11/19/2024 11:45 AM EDT Height 180.3 cm (5' 11 ) 01/27/2021 3:49 PM EST Body Mass Index 25.72 01/27/2021 3:49 PM EST Plan of Treatment Upcoming Encounters Date Type Department Care Team (Late st Contact Info) Description 05/19/2025 10:00 AM EST [facility] [address] [address] Gracia Macdonald ARNP [address] [address] Health Maintenance Due Date Last [...] Procedure Name Priority Date/Time Associated Diagnosis Comments URINE ALBUMIN / CREATININE RATIO Routine 11/17/2024 2:01 PM EDT Stage 3a chronic kidney disease (HCC) Hypertension Persistent proteinuria Vitamin D deficiency, not otherwise specified PROTEIN / CREATININE RATIO, URINE Routine 11/17/2024 2:01 PM EDT Stage 3a chronic kidney disease (HCC) Hypertension Persistent proteinuria Vitamin D deficiency, not otherwise specified CBC Routine 11/17/2024 2:01 PM EDT Stage 3a chronic kidney disease (HCC) Hypertension Persistent proteinuria Vitamin D deficiency, not otherwise specified RENAL FUNCTION PANEL Routine 11/17/2024 2:01 PM EDT Stage 3a chronic kidney disease (HCC) Hypertension Persistent proteinuria Vitamin D deficiency, not otherwise specified PTH, INTACT Routine 11/17/2024 2:01 PM EDT Stage 3a chronic kidney disease (HCC) Hypertension Persistent proteinuria Vitamin D deficiency, not otherwise specified HEMOGLOBIN A1C Routine 01/02/2024 10:30 AM EDT from Last 3 Months or Most Recently Relevant to Health Maintenance Results * (ABNORMAL) Urine Protein / creatinine ratio (11/17/2024 2:01 PM EDT) Creatinine, Ur 76.6 Not Estab. mg/dL [facility] Protein, Ur 32.5 Not Estab. mg/dL [facility] Urine Protein/Creati nine Ratio 424(H) 0 - 200 mg/g creat [facility] Urine specimen (specimen) Urine specimen obtained by clean catch procedure / Unknown 11/17/2024 2:01 PM EDT 11/17/2024 Gracia Waygo [facility] LAB URINE ORDERABLES Final Result Performing Organization Address [facility] Co de Phone Number [facility] [place] [address] [place] [address] * (ABNORMAL) Urine Albumin / Creatinine Ratio (11/17/2024 2:01 PM EDT) Albumin, Urine 173.1 Not Estab. ug/mL [facility] Albumin/Creatin ine Ratio 226(H) 0 - 29 mg/g creat [facility] Comment: Normal: 0 - 29 Moderately increased: 30 - 300 Severely increased: >300 Urine specimen (specimen) Urine specimen obtained by clean catch procedure / Unknown 11/17/2024 2:01 PM EDT 11/17/2024 [employer] [facility] LAB URINE ORDERABLES Final Result Performing Organization Address City/[facility]/ZIP Co de Phone Number [facility] [place] [address] [place] [address] * CBC (11/17/2024 2:01 PM EDT) WBC 6.4 3.4 - 10.8 x10E3/uL [facility] RBC 4.61 3.77 - 5.28 x10E6/uL [facility] Hemoglobin 13.9 11.1 - 15.9 g/dL [facility] Hematocrit 42.6 34.0 - 46.6 % [facility] MCV 92 79 - 97 fL [facility] MCH 30.2 26.6 - 33.0 pg [facility] MCHC 32.6 31.5 - 35.7 g/dL [facility] RDW 12.0 11.7 - 15.4 % [facility] Platelets 182 150 - 450 x10E3/uL [facility] Blood specimen (specimen) Venous blood / Unknown 11/17/2024 2:01 PM EDT 11/17/2024 [facility] LAB BLOOD ORDERABLES Final Result [facility] [address] [place] [address] * (ABNORMAL) PTH, intact (11/17/2024 2:01 PM EDT) PTH 84(H) 15 - 65 pg/mL [facility] Blood specimen (specimen) Venous blood / Unknown 11/17/2024 2:01 PM EDT 11/17/2024 [facility]LOOD ORDER[facility] Final Result [facility] [address] [place] [address] * (ABNORMAL) Renal function panel (11/17/2024 2:01 PM EDT) Glucose 217(H) 70 - 99 mg/dL [facility] BUN 26 8 - 27 mg/dL [facility] Creatinine 1.30(H) 0.57 - 1.00 mg/dL [facility] eGFR CKD-EPI CR 2020 44(L) >59 mL/min/1.7 3 [facility] BUN/Creatinine Ratio 20 12 - 28 [facility] Sodium 141 134 - 144 mmol/L [facility] Potassium 5.0 3.5 - 5.2 mmol/L [facility] Chloride 105 96 - 106 mmol/L [facility] Bicarbonate (CO2) 18(L) 20 - 29 mmol/L [facility] Calcium 10.6(H) 8.7 - 10.3 mg/dL [facility] Comment:Verified by repeat analysis Albumin 4.2 3.8 - 4.8 g/dL [facility] Phosphorus 3.1 3.0 - 4.3 mg/dL [facility] Blood specimen (specimen) Venous blood / Unknown 11/17/2024 2:01 PM EDT 11/17/2024 rGacia Macdonald [facility] LAB BLOOD ORDERABLES Final Result [facility] [address] [place] [address] * (ABNORMAL) Hemoglobin A1c (01/02/2024 10:30 AM EDT) Pathologist [facility] Hemoglobin A1C 8.0(H) 4.8 - 5.6 % [facility] Comment: Prediabetes: 5.7 - 6.4 Diabetes: >6.4 Glycemic control for adults with diabetes: <7.0 01/02/2024 10:3 0 AM EDT 01/02/2024 Daquan Sykes MD LAB BLOOD ORDERABLES Anita lopes Result [facility] [address] [place] [address] from Last 3 Months or Most Recently Relevant to Health Maintenance Insurance Medicare [facility] Medicare [facility] Care Teams Slip Sheeter Relationship Specialty Start Date End Date Dana Polo PA-C [address] [place] [phone] PCP - General Internal Medicine 01/29/24
--- OUTSIDE RECORDS SUMMARY | 2024-12-03 13:38 | XMS_ITS | Encounter Summary ---
Author Organization [facility] Address [address] [place] [address] Care Team Providers Care Vest Presser Name Role Phone Dana Polo Primary Care Provider [phone] Reason for Visit * Reason Onset Date Comments Abdominal Pain 02/04/2024 Encounter Details Date Type Department Care Team (Late st Contact Info) Description 02/04/2024 Nurse Triage [facility] [address] [place] [id number] Dana Polo PA [address] [place] [id number] Social History Tobacco Use Types Packs/Day Years [...] was her PCP prior to her joining [facility]. Adivised to return to ED but refuses [...] on filedocumented in this encounter Care Teams Vest Presser Relationship Specialty Start Date End Date Dana Polo PA [address] [place] [address] PCP - General General Medicine 12/09/23 documented as of this encounter
--- OUTSIDE RECORDS SUMMARY | 2024-12-03 13:38 | XMS_ITS ---
[facility] Unknown Problems Problem Status Onset Date Problem Type Date of Resoluti on Source Chronic kidney disease, unspecified CKD stage active EncounterDiagnosisAct CCT Care Team Organization Name Specialty Phone Email Start Date End Da [facility] BERNICE BLUE Primary Care 12/20/2023
--- OUTSIDE RECORDS SUMMARY | 2024-12-03 13:38 | XMS_ITS | Clinical Summary ---
Author Organization [facility] Address [address] [facility] [address] [place] [id number] Phone Care Team Providers Care Belt Press Operator Name Role Phone Daquan Sykes MD Unavailable [phone] Dana Polo Primary Care Provide r Allergies Active Allergy Reactions Criticality Noted Date Comments Atorvastatin Other (See Comments) 11/04/2020 Other reaction(s): Muscle cramps Medications blood sugar diagnostic (GLUCOSE BLOOD) Strp strips 1 each by Percutaneous route 5 (five) times a day. 01/11/20 22 Active amLODIPine (NORVASC) 2.5 MG tablet Take 10 mg by mouth. 04/30/19 23 Active aspirin 81 MG EC tablet Take 81 mg by mouth. Active carvedilol (COREG) 25 MG tablet Take 25 mg by mouth 2 (two) times a day with meals. Active ezetimibe (ZETIA) 10 mg tablet Take by mouth. 03/28/19 23 Active LORazepam (ATIVAN) 0.5 MG tablet Take 0.5 mg by mouth. 03/28/19 23 Active pantoprazole (PROTONIX) 40 MG tablet Take 80 mg by mouth daily. Active pravastatin (PRAVACHOL) 80 MG tablet Take by mouth. 03/28/19 23 Active rivaroxaban (XARELTO) 2.5 mg tablet Take 1 tablet by mouth 2 (two) times a day. Active cholecalcifero l (VITAMIN D3) 25 MCG (1,000 unit) tabletIndicati ons:Hyperparat hyroidism Take 1 tablet (1,000 Units total) by mouth daily. 90 tablet 3 11/17/19 23 Active cyanocobalamin , vitamin B-12, 100 MCG tabletIndicati ons:Type 2 diabetes mellitus with hyperglycemia, without long-term current use of insulin Take 1 tablet (100 mcg total) by mouth daily. 90 tablet 2 11/17/19 23 Active metFORMIN (GLUCOPHAGE) 1000 MG tabletIndicati ons:Type 2 diabetes mellitus with hyperglycemia, without long-term current use of insulin Take 1 tablet (1,000 mg total) by mouth 2 (two) times a day with meals. 180 tablet 2 09/23/19 24 Active CONTOUR NEXT Strp stripsIndicati ons:Type 2 diabetes mellitus with hyperglycemia, without long-term current use of insulin 1 each by Miscellaneous route daily. Dx E11.65, on insulin 100 strip 3 11/15/19 24 Active dapagliflozin propanediol (FARXIGA) 10 mg tablet TAKE ONE TABLET BY MOUTH EVERY DAY 90 tablet 3 04/14/19 25 Active lisinopril-hyd roCHLOROthiazi de (PRINZIDE,ZEST ORETIC) 20-25 mg per tablet Take 1 tablet by mouth daily. Active FREESTYLE MELISSA 2 PLUS SENSOR DeviIndication s:Type 2 diabetes mellitus with hyperglycemia, without long-term current use of insulin 1 each by Miscellaneous route every 14 (fourteen) days. 2 each 3 10/07/19 25 Active FREESTYLE MELISSA 3 READER MiscIndication s:Type 2 diabetes mellitus with hyperglycemia, without long-term current use of insulin To monitor blood glucose daily, dx E11.65, on insulin 1 each 10/14/19 25 Active insulin glargine 100 unit/mL (3 mL) InPn injection penIndications :Type 2 diabetes mellitus with hyperglycemia, without long-term current use of insulin Inject 8 Units under the skin nightly at bedtime. 15 mL 1 10/14/19 25 Active insulin aspart U-100 (NOVOLOG FLEXPEN U-100 INSULIN) 100 unit/mL (3 mL) injection penIndications :Type 2 diabetes mellitus with hyperglycemia, without long-term current use of insulin Inject 12-20 Units under the skin 3 (three) times a day with meals. 60 mL 1 10/14/19 25 Active BD ULTRA-FINE INDY PEN NEEDLE 32 gauge x 5/32 NdleIndication s:Type 2 diabetes mellitus with hyperglycemia, without long-term current use of insulin 1 each by Miscellaneous route 4 (four) times a day before meals and nightly. 400 each 1 10/14/19 25 Active FREESTYLE MELISSA 2 PLUS SENSOR DeviIndication s:Type 2 diabetes mellitus with hyperglycemia, without long-term current use of insulin 1 each by Miscellaneous route every 15 (fifteen) days. 2 each 11/27/19 25 Active FREESTYLE MELISSA 3 PLUS SENSOR DeviIndication s:Type 2 diabetes mellitus with hyperglycemia, without long-term current use of insulin 1 each by Miscellaneous route every 15 (fifteen) days. 6 each 09/10/19 25 2024 Discontinued FREESTYLE MELISSA 2 SENSOR kitIndications :Type 2 diabetes mellitus with hyperglycemia, without long-term current use of insulin APPLY SENSOR TOPICALLY EVERY 14 DAYS - (USE WITH APPROPRIATE FREESTYLE MELISSA READER OR MOBILE DEVICE MANPREET FOR SENSOR READINGS) 2 each 10/24/19 25 2024 Discontinued Active Problems Problem Noted Date Diagnosed Date Type 2 diabetes mellitus with proteinuria 2024 Assessment & Plan (04/25/2024 12:06 PM EST): Slightly decreased estimated GFR of 57, creatinine 1.06 with increased urine microalbumin to creatinine ratio of 1026 in 02/2024. BP at target. 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 Will increase dose to 2000 IU daily and monitor. Type 2 diabetes mellitus wit h hyperglycemia, without long-term current use of insulin 08/18/2022 Assessment & Plan (10/21/2024 3:05 PM EDT): Control is improving but is not optimal based upon the patient's freestyle melissa 2 sensor download. No frequent or severe hypoglycemia. She is having post prandial spikes, likely due to not always having her insulin with her. Discussed trying to make sure she always has her insulin pens with her especially when going out that way she can take the insulin when eating. Continue to work on eating healthy and being active. To call or message with any issues managing her glucose levels. Up to date with ophtho. Labs ordered Assessment & Plan (07/16/2024 12:14 PM EDT): Control is improving based upon the patient's freestyle melissa 2 sensor download. No frequent or severe hypoglycemia. She is having post prandial spikes due to not always having her insulin with her for her meals. She is going to work on making sure she takes her insulin with her so as to not have the post prandial spikes. Will send a prescription for the freestyle melissa 3+ sensor as melissa will be discontinuing the melissa 2. Continue to work on eating healthy and being active. To call or message with any issues managing her glucose levels. Up to date with opho. Labs ordered to be done prior to next visit Assessment & Plan (04/25/2024 12:02 PM EST): Worsened control since December by CGM download with average glucose 222, in target only 32% of the time and over 2 5030% of the time. Remains on NovoLog 12 to 14 units, injecting right before main meals 3 times a day, Farxiga 10 mg in a.m. and metformin 1000 mg twice a day. Glipizide was discontinued in 10/2023 because of some low blood sugars. Gained 5 pounds since December. Exercising on treadmill for 30 minutes most days. -And basal insulin 8 units at bedtime. Increase by 1 to 2 units if fasting glucose over 130-140 and no overnight lows. -Increase NovoLog by 2 units at least before breakfast -If planning exercise after dinner, may decrease the NovoLog dose by 2 to 4 units to prevent hypoglycemia. -Enter insulin doses to her melissa manpreet. -Reviewed symptoms, prevention and treatment of hypoglycemia. -Call with blood sugar problems -Continue to use CGM Assessment & Plan (12/24/2023 2:18 PM EDT): Control is improving based upon the patient's freestyle melissa 2 sensor download. No frequent or severe hypoglycemia. She is no longer having lows but is having post prandial spikes. She will increase her novolog at meals to help prevent the post prandial spikes. Continue to work on eating healthy and being active. To call or message with any issues managing her glucose levels. Up to date with kaufDA Assessment & Plan (12/02/2023 12:41 PM EDT): She is having issues with lows most often in the morning. She is not sure what is causing the lows. She will correct and then is fine. With her now using prandial insulin will stop her glipizide to see if this helps prevent the lows. She will call next week to let us know how she is doing and if the lows continue. If the lows continue will lower her insulin, if the lows stop will maintain her dosing. Continue to work on eating and being active Assessment & Plan (08/30/2023 10:40 AM EDT): Control has improved based upon the patient's freestyle melissa 2 sensor download. No frequent or severe hypoglycemia. She is having glucose spikes after meals. Will increase her fiasp to help improve her control. Discussed she can adjust the insulin based upon the amount of carbs she is eating. Continue to work on eating healthy and being active. To call or message with any issues managing her glucose levels. Up to date with kaufDA. Labs reviewed Assessment & Plan (07/17/2023 8:45 AM EDT): Control is suboptimal based upon the patient's nfreestyle melissa 2 sensor download. No frequent or severe hypoglycemia. Her glucose levels are running high after meals especially breakfast even with the increase in glipizide and trulicity. She is not feeling well on the trulicity. Offered to stop the trulicity and start prandial insulin. She is willing to try this. Will start with 4 units prior to meals with carbohydrates. If she is eating a meal without carbohydrates or not eating she will not take it. Reviewed insulin site rotation. Reviewed how to set up and inject using the insulin pen. Send a prescription for novolog, as most other insulins are on backorder, and pen needles. She will start this once she receives it from her pharmacy. Continue to work on eating healthy and being active. To call or message with any issues managing her glucose levels. [facility] to date [facility]. Labs ordered Assessment & Plan (06/21/2023 12:27 PM EDT): Control is reasonable but not optimal based upon the patient's freestyle melissa 2 sensor download. No frequent or severe hypoglycemia. Her glucose levels are running highest in the morning after breakfast. Will have her switch her glipizide to taking 3- 5 mg tablets with breakfast and 1- 5 mg tablet with dinner. She is having to take 2- 0.75 mg trulicity pens to equal her 1.5 mg weekly dose. Continue to work on eating healthy and being active. To call or message with any issues managing her glucose levels. Up to date with [facility]. Reviewed recent labs. Ordered labs to done prior to visit with Dr Christie Assessment & Plan (04/18/2023 8:57 PM EST): Improved control by melissa 2 CGM download. Trulicity added about 5 weeks ago. She continues on metformin 1000 mg twice a day, fark CIGA 10 mg daily and glipizide 5 mg tablet 2 tablets in the morning and 1 tablet in the afternoon. No frequent or severe hypoglycemia. Rare intermittent burning feet. On vitamin B12 100 mcg daily with level up to 192. Asked to decrease B12 dose by 50%. Plan to increase Trulicity to 1.5 mg weekly. Hope that it would help with decreasing snacking in between meals. Reviewed symptoms, prevention and treatment of hypoglycemia. Would need to decrease the glipizide dose if blood sugars are getting below the 70s. Continue to work on healthy meal plan and regular exercise. Labs in early May followed by visit with Agnes. Assessment & Plan (02/18/2023 9:59 PM EST): Suboptimal control by melissa 2 CGM download. Average glucose 201. Only 44% in target range. High blood sugars mostly after meals and later in the day. No frequent or severe hypoglycemia. Gained 5 pounds since July. Cravings at bedtime. Lately less active. Suggested to stop the Januvia and start the Trulicity 0.75 mg once a week. Pros and cons discussed. Call if any side effects. Continue metformin 1000 mg twice a day as well as the glipizide 5 mg tablet 2 tablets in the morning and 5 mg in the evening before meal. Continue farxiga 10 mg in the morning. Call if blood sugar below 70 or over 250 repeatedly. If blood sugars below 70 we will have to start cutting back on the glipizide. Assessment & Plan (11/20/2022 10:07 AM EDT): Control is unknown as the patient forgot her melissa reader. No frequent or severe hypoglycemia. Will maintain her regimen. Continue to work on eating healthy and being active. To call or message with any issues managing her glucose levels. Up to date with angela. Labs ordered today Assessment & Plan (08/18/2022 7:45 PM EDT): Suboptimal control by melissa 2 CGM download and recent A1c of 7.4% which has been stable. No frequent or severe hypoglycemia. Postprandial elevation after breakfast and stays in the 200s most part of the day. She was off Farxiga for 2 weeks because of UTI, asymptomatic after treatment and Farxiga 10 mg resumed on 08/12/2022. Remains on Januvia 100 mg daily, glipizide 5 mg twice a day and metformin 1000 mg twice a day. Plan to add 5 mg glipizide before breakfast. Continue the other medications. Try to do some walking after breakfast as well. Reviewed symptoms, prevention and treatment of hypoglycemia. If having low sugars overnight, would stop the supper glipizide. Follow-up in 3 months with Agnes regarding diabetes management. [facility] current use of oral hypoglycemic drug 08/18/2022 Assessment & Plan (12/24/2023 2:18 PM EDT): Will maintain her metformin dosing Assessment & Plan (12/02/2023 12:39 PM EDT): Will stop her glipizide due to using the insulin now which we will be able to better control Hyperparathyroidism 08/18/2022 Overview (08/18/2022): Primary hyperparathyroidism aggravated by vitamin D deficiency with vitamin D level down to 8 in 11/2021. 25 OHD normalized by 07/08. Was temporarily on Sensipar. No renal stone. Waiting for DEXA report Assessment & Plan (04/25/2024 12:10 PM EST): Primary hyperparathyroidism aggravated by vitamin D deficiency diagnosed in the fall of 2021. Vitamin D level normalized with supplementation. No history of kidney stones, nor fracture. Estimated GFR is 61 as of 11/2022 with serum calcium 10.5 and 25 OH vitamin D level low normal at 36 while patient was not on vitamin D supplement for some time. Labs in 02/18/2023: PTH remains elevated at 74 with serum calcium 10.7 and albumin 4.2, creatinine 0.9, estimated GFR DEXA on 10/20/2021 at [facility] reported normal bone mineral density at all 3 sites. Patient had a repeat DEXA few months ago, waiting for report. Last labs in 12/2023 showed a inappropriately high normal PTH with a high normal ionized calcium. Vitamin D was just below the lower limit of normal at 29.1 on 2000 IU D3 daily. -continue to monitor PTH, calcium, phosphorus and 25 OH vitamin D - obtain last DEXA report Assessment & Plan (04/18/2023 8:56 PM EST): Primary hyperparathyroidism aggravated by vitamin D deficiency in the fall 2021. Vitamin D level normalized with supplementation. No history of kidney stones, nor fracture. Estimated GFR is 61 as of 11/2022 with serum calcium 10.5 and 25 OH vitamin D level low normal at 36 while patient was not on vitamin D supplement for some time. Labs from 02/18/2023 reviewed: PTH remains elevated at 74 with serum calcium 10.7 and albumin 4.2, creatinine 0.9, estimated GFR 69. 25 OHD was low at 23 while getting 1000 IU D3 daily. Still waiting for DEXA report from 2021, done at [facility]. So far no surgical indication. Parathyroid scan is not needed unless surgery is planned. Will increase vitamin D to 2000 IU daily. We will continue to monitor PTH, calcium, phosphorus and 25 OH vitamin D Assessment & Plan (02/18/2023 10:01 PM EST): Primary hyperparathyroidism aggravated by vitamin D deficiency in the fall 2021. Vitamin D level normalized with supplementation. No history of kidney stones, nor fracture. Estimated GFR is 61 as of 11/2022 with serum calcium 10.5 and 25 OH vitamin D level low normal at 36 5 patient is not on vitamin D supplement for some time. PTH remains elevated at 84. I believe patient had a normal DEXA in 2021 at [facility] but I need to get her records to confirm this. If that is the case she does not have a surgical indication at present. Parathyroid scan is not needed unless surgery is planned. We will continue to monitor PTH, calcium, phosphorus and 25 OH vitamin D Assessment & Plan (11/20/2022 10:04 AM EDT): Will order labs and then determine if any medication adjustments are needed Assessment & Plan (08/18/2022 7:51 PM EDT): Primary hyperparathyroidism aggravated by vitamin D deficiency last fall. Vitamin D level normalized with supplementation. No history of kidney stones, nor fracture. Estimated GFR is over 60. I believe patient had a normal DEXA in 2021 but I need to get her records to confirm this. If that is the case she does not have a surgical indication at present. Parathyroid scan is not needed unless surgery is planned. We will continue to monitor PTH, calcium, phosphorus and 25 OH vitamin D Encounters Date Type Department Care Team Description 11/25/[address] [facility] Endocrinology [address] [place] [address] [place] [address] Elisabeth West PA-C Med Change Request 10/23/2024 Telephone [facility] [address] [place] [address] Elisabeth West PA-C Medication Refill 10/23/2024 Refill [facility] [address] [place] [address] Elisabeth West PA-C Medication Refill 10/21/2024 Orders Only [facility] [address] [place] [address] Elisabeth West PA-C Type 2 diabetes mellitus with hyperglycemia, without long-term current use of insulin (Primary Dx) 10/13/2024 10:34 AM EDT - 10/13/2024 11:59 PM EDT Hospital Encounter [facility] [address] [place] [address] [place] [address] Elisabeth West PA-C Discharge Disposition: Home or Self Care 10/13/2024 10:00 AM EDT Office Visit [facility] [address] [place] [address] Elisabeth West PA-C Type 2 diabetes mellitus with hyperglycemia, without long-term current use of insulin (Primary Dx) 10/07/[address] [facility] Endocrinology [address] [place] [address] [place] [address] Elisabeth West PA-C Medication Problem (Pharmacy does not have the Plus ) 10/01/[address] [facility] Endocrinology [address] [place] [address] [place] [address] Paris Herman Medication Prior Authorization (FREESTYLE MELISSA 3 READER PA) 10/01/2024 Telephone [facility] [address] [place] [address] [place] [address] Daysi Roca MA Medication Prior Authorization 09/22/2024 Refill [facility] [address] [place] [address] Lindsey Oakley MD Medication Refill 09/10/[address] [facility] Endocrinology [address] [place] [address] Courtney Hammond 09/09/2024 Refill [facility] [address] [place] [address] Elisabeth West PA-C Medication Refill from Last 3 Months Social History Tobacco Use Types Packs/Day Years Used Date Smoking Tobacco: Former Cigarettes 1.5 30 1 975 - 2005 Passive Smoke Exposure: Past Smokeless Tobacco: Never Tobacco Cessation:Counseling Given: No Alcohol Use Standard Drinks/Week Comments Not Currently [...] with a working camera? Not on file Comments Unknown Sex and Gender Information Value Date Recorded Sex Assigned at Not on file Legal Sex Female 10:36 PM EDT Gender Identity Not on file Sexual Orientation Not on file Last Filed Vital Signs Vital Sign Reading Time Taken Comments Blood Pressure 120/64 10/13/2024 9:40 AM EDT Pulse 67 10/13/2024 9:40 AM EDT Temperature 36.4 C (97.6 F) 07/17/2023 8:16 AM EDT Respiratory Rate - - Oxygen Saturation 96% 10/13/2024 9:40 AM EDT Inhaled Oxygen Concentration - - Weight 83 kg (183 lb) 10/13/2024 9:40 AM EDT Height 180.3 cm (5' 10.98 ) 10/13/2024 9:40 AM E DT Body Mass Index 25.53 10/13/2024 9:40 AM EDT Plan of Treatment Upcoming Encounters Date Type Department Care Team (Late st Contact Info) Description 12/14/2024 11:00 AM EDT Office Visit [facility] [address] [place] [address] Maribel Christie MD [address] [place] [address] [address] [place] [address] 04/07/2025 11:20 AM EST Office Visit [facility] [address] [place] [address] [place] [address] Maribel Christie MD [address] [place] [phone] [email or web address] Health Maintenance Due Date Last Done Comments DEPRESSION SCREENING 1965 HEPATITIS C SCREENING 1971 MAMMOGRAM 1993 COLOGUARD 1998 COLONOSCOPY 1998 COLORECTAL CANCER SCREENING 1998 FIT TEST 1998 FOBT 1998 SIGMOIDOSCOPY 1998 VIRTUAL COLONOSCOPY 1998 RSV VACCINE (1 - Risk 60-74 years 1-dose series) 2013 PNEUMOCOCCAL VACCINES (50+ years) (2 of 2 - PPSV23) 05/04/2016 03/09/2016 DIABETIC EYE EXAM 08/18/2022 INFLUENZA VACCINE (#1) 2024 , 12/20/2020, 12/23/2019, Additional history exists COVID-19 VACCINE ( season) 2024 BLOOD PRESSURE 04/15/2025 10/13/2024 HEMOGLOBIN A1C 04/15/2025 10/13/2024, 12/16, 01/02/2024, Additional history exists CREATININE LEVEL 10/13/2025 10/13/2024, , 11/21/2023, Additional history exists POTASSIUM LEVEL 10/13/2025 10/13/2024, 07/17, 02/18/2023, Additional history exists Adult Td,Tdap Booster 01/02/2032 01/01/2022, 012 ZOSTER VACCINES Completed 12/25/2021, 10/23/2021 OSTEOPOROSIS SCREENING INITIAL (ONE-TIME) Completed 11/27/2023, 10/20/2021 SMOKING STATUS SCREENING (Once After 26 Yrs) Completed 07/14/2024 HEPATITIS A VACCINES Aged Out No long er eligible based on patient's age to complete this topic HIB VACCINES Aged Out No longer eligi ble based on patient's age to complete this topic MENINGOCOCCAL VACCINES (ACWY) Aged Out No longer eligible based on patient's age to complete this topic MENINGOCOCCAL VACCINES (B) Aged Out N o longer eligible based on patient's age to complete this topic Medical Devices Not on file Procedures Procedure Name Priority Date/Time Associated Diagnosis Comments HEMOGLOBIN A1C Routine 10/13/2024 10:38 AM EDT Type 2 diabetes mellitus with hyperglycemia, without long-term current use of insulin ALANINE AMINOTRANSFERASE (ALT) Routine 10/13/2024 10:38 AM EDT Type 2 diabetes mellitus with hyperglycemia, without long-term current use of insulin ASPARTATE AMINOTRANSFERASE (AST) Routine 10/13/2024 10:38 AM EDT Type 2 diabetes mellitus with hyperglycemia, without long-term current use of insulin BASIC METABOLIC PANEL Routine 10/13/2024 10:38 AM EDT Type 2 diabetes mellitus with hyperglycemia, without long-term current use of insulin BD DXA SCREENING Routine 11/27/2023 4:28 PM EDT Primary hyperparathyroidism from Last 3 Months or Most Recently Relevant to Health Maintenance Results * Alanine aminotransferase (ALT) (10/13/2024 10:38 AM EDT) ALT 16 0 - 40 U/L [facility] Blood 10/13/2024 10:3 8 AM EDT 10/13/2024 10:48 AM EDT us Elisabeth West PA-C LAB BLOOD ORDERABL ES Final Result [facility] [address] [place] [address] * Aspartate aminotransferase (AST) (10/13/2024 10:38 AM EDT) AST 19 0 - 37 U/L [facility] Blood 10/13/2024 10:3 8 AM EDT 10/13/2024 10:48 AM EDT Elisabeth West PA-C LAB BLOOD ORDERABL ES Final Result [address] [address] * (ABNORMAL) Hemoglobin A1c (10/13/2024 10:38 AM EDT) HEMOGLOBIN A1C 8.0(H) 4.3 - 5.8 % [facility] Blood 10/13/2024 10:3 8 AM EDT 10/13/2024 10:49 AM EDT Elisabeth West PA-C LAB BLOOD ORDERABL ES Final Result Performing Organization Address [facility] Co de Phone Number [address] [address] * (ABNORMAL) Basic metabolic panel (10/13/2024 10:38 AM EDT) SODIUM 138 133 - 146 mmol/L [facility] CHLORIDE 102 96 - 108 mmol/L [facility] POTASSIUM 5.3(H) 3.3 - 5.1 mmol/L [facility] CO2 22 21 - 35 mmol/L [facility] BUN 37(H) 6 - 19 mg/dL [facility] CREATININE 1.20 0.5 - 1.5 mg/dL [facility] GLUCOSE 192(H) 70 - 99 mg/dL [facility] CALCIUM 10.5(H) 8.4 - 10.3 mg/dL [facility] EGFR 48(L) >59 mL/min/1.7 3m2 [facility] Comment:Estimated glomerular filtration rate calculated using the CKD-EPI refit equation. ANION GAP 19 10 - 20 mmol/L [facility] Blood 10/13/2024 10:3 8 AM EDT 10/13/2024 10:48 AM EDT Elisabeth West PA-C LAB BLOOD ORDERABL ES Final Result [facility] [address] [place] [address] * DXA Screening (11/27/2023 4:28 PM EDT) Anatomical Region Laterality Modality Bone Density Bone Density Maribel Christie MD IMG BD BONE DENSITY DEXA Final Result from Last 3 Months or Most Recently Relevant to Health Maintenance Insurance [place] [id number] [place] [address] MEDICARE PART A & [place] [address] MEDICARE PART A & B [facility] [place] [address] MEDICARE PART A & B [facility] Address: [facility] OFFICE 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 It is not the complete legal health record.[facility]
== END 2024-12-03 12:25 | disposition home or self-care (01) ==
LOC: HO.HMCFM 11:23
PROVIDERS: PCP Physician Assistant Medical; Visit Provider Physician Assistant Medical
DX: I12.9 Hypertensive chronic kidney disease with stage 1 through stage 4 chronic kidney disease, or unspecified chronic kidney disease (principal); F41.9 Anxiety disorder, unspecified; E11.59 Type 2 diabetes mellitus with other circulatory complications; I25.10 Atherosclerotic heart disease of native coronary artery without angina pectoris; I70.219 Atherosclerosis of native arteries of extremities with intermittent claudication, unspecified extremity; I65.29 Occlusion and stenosis of unspecified carotid artery; E78.00 Pure hypercholesterolemia, unspecified; E05.90 Thyrotoxicosis, unspecified without thyrotoxic crisis or storm; E21.3 Hyperparathyroidism, unspecified; D12.6 Benign neoplasm of colon, unspecified; N18.9 Chronic kidney disease, unspecified; R25.2 Cramp and spasm

== ENCOUNTER 2024-12-03 11:22 | Outpatient (REF) | payer MEDICARE, OTHER, SELFPAY ==
[2024-12-03 14:45] LABS: Hematocrit 43.8 % (37.0-47.0); Hemoglobin 14.1 g/dl (12.0-16.0); Mean Corpuscular HGB Conc 32.2 g/dl (31.0-35.0); Mean Corpuscular Hemoglobin 29.4 pg (27.0-33.0); Mean Corpuscular Volume 91.3 fL (80.0-98.0); NRBC Abs Auto 0.000 X10*3/uL (0.0-0.012); NRBC Pct Auto 0.0 /100WBC (0.0-0.2); Platelet Count 198 X10*3/uL (160-400); Red Blood Count 4.80 X10*6/uL (4.20-5.50); White Blood Count 6.4 X10*3/uL (4.8-10.8)
[2024-12-03 14:59] LABS: Total Hemoglobin (HGBA1C) 3766.8131 umol/L
[2024-12-03 15:33] LABS: Parathyroid Hormone Intact 170.5 pg/mL (8.7-77.1)
[2024-12-03 18:29] LABS: Alanine Aminotransferase 25 U/L (0-31); Albumin Level 4.5 g/dL (3.5-5.0); Alkaline Phosphatase 51 U/L (39-117); Anion Gap 13 (12-20); Aspartate Amino Transferase 34 U/L (5-31); Blood Urea Nitrogen 37 mg/dL (9-16); Calcium 10.7 mg/dL (8.4-10.2); Carbon Dioxide 25 mmol/L (22-29); Chloride 107 mmol/L (96-108); Cholesterol 195 mg/dL (<200); Estimated Glomerular Filt Rate 35; HDL Cholesterol 94 mg/dL (>40); Magnesium 2.0 mg/dL (1.6-2.6); Potassium 4.3 mmol/L (3.3-5.1); Sodium 141 mmol/L (135-145); Total Protein 7.5 g/dL (6.5-8.0); Triglycerides 129 mg/dL (<150)
[2024-12-03 18:48] LABS: Vitamin B12 606 pg/mL (200-900)
[2024-12-09 01:02] LABS: VITAMIN D (1,25 OH) D3 16 pg/mL; Vit D (1,25-Dihydroxy) Total 16 pg/mL (18-72); Vitamin D (1,25 OH) D2 <8 pg/mL
== END 2024-12-03 11:23 | disposition home or self-care (01) ==
LOC: HO.WFDLDS 11:22
PROVIDERS: PCP Physician Assistant Medical; Visit Provider Physician Assistant Medical
DX: I12.9 Hypertensive chronic kidney disease with stage 1 through stage 4 chronic kidney disease, or unspecified chronic kidney disease (principal); N18.9 Chronic kidney disease, unspecified; E21.3 Hyperparathyroidism, unspecified; E78.5 Hyperlipidemia, unspecified; E83.52 Hypercalcemia; E11.59 Type 2 diabetes mellitus with other circulatory complications; R73.9 Hyperglycemia, unspecified; F41.9 Anxiety disorder, unspecified; I25.10 Atherosclerotic heart disease of native coronary artery without angina pectoris; I70.219 Atherosclerosis of native arteries of extremities with intermittent claudication, unspecified extremity; I65.29 Occlusion and stenosis of unspecified carotid artery; E78.00 Pure hypercholesterolemia, unspecified; E05.90 Thyrotoxicosis, unspecified without thyrotoxic crisis or storm; D12.6 Benign neoplasm of colon, unspecified; R25.2 Cramp and spasm; Z79.82 Long term (current) use of aspirin; Z79.4 Long term (current) use of insulin; Z79.84 Long term (current) use of oral hypoglycemic drugs; Z79.899 Other long term (current) drug therapy
CPT/HCPCS: 36415; 80053; 80061; 82607; 82652; 83036; 83735; 83970; 85027; 99212